=== PATIENT | male | born 1960 | race Caucasian/White ===

== ENCOUNTER 2018-01-24 10:19 | Inpatient (IN) ==
[2018-01-24 13:27] VITALS: BMI 24.0
--- OUTSIDE RECORDS SUMMARY | 2018-01-24 13:40 | External Medical Summary | Encounter Summary ---
:1960 Author Organization [facility] Address [address] [facility] [address] [facility] [address] [place] [address] Phone Care Team Providers Name Role Phone Seferino Portillo MD Unavailable Pippa Neal Unavailable Unavailable Seferino Portillo MD Unavailable Tia Cunha MD Unavailable Pratibha Blandon LPN Unavailable Unavailable Carrie Ferrer RN Unavailable Unavailable Didi Duarte RN Registered Nurse Unavailable Tiffani Gil RN Unavailable Unavailable Vladimir Munson MD Primary Care Provider Reason for Visit Reason Comments Itching Encounter Details Date Type Department Care Team Description 01/21/2018 Telephone Center for Abram Sun RN Itching Transplantation-Liver Transplant Hep [address] [facility] [place] [address] Social History Tobacco Use Types Packs/Day Years Used Date Former Smoker Cigarettes 0.25 0.5 Quit: 11/15/1975 Smokeless Tobacco: Former User Chew Quit: 11/15/2010 Alcohol Use Drinks/Week oz/Week Comments Yes 4-5 Cans of beer 4.8 - 5.4 4 Standard drinks or equivalent Sex Assigned at Date Recorded Not on file as of this encounter Functional Status Functional Status Response Date of Assessment Does the patient have a hearing impairment: No 10/28/2017 Does the patient have a visual impairment: No 10/28/2017 Does the patient have impaired ambulation: No 10/28/2017 Does the patient have an activity of daily living (ADL) No 10/28/2017 impairment: Does the patient have an instrumental activity of daily No 10/28/2017 living (IADL) impairment: Cognitive Status Response Date of Assessment Does the patient have a cognitive impairment: No 10/28/2017 as of this encounter Miscellaneous Notes Telephone Encounter - Abram Sun RN - 01/21/2018 9:03 AM CSTReceived message that pt was experiencing pruritis. Discussed with Dr. Damico who recommended eucerin. Pt states that is what he has been using. Requested pts labs that were done 2 days ago. Will review with Dr. Damico to make plan.in this encounter Plan of Treatment Not on fileas of this encounter Visit Diagnoses Not on filein this encounter
--- OUTSIDE RECORDS SUMMARY | 2018-01-24 13:40 | External Medical Summary | Encounter Summary ---
:1960 Author Organization [facility] Address [address] [place] [address] Phone Care Team Providers Name Role Phone Seferino Portillo MD Unavailable Pippa Neal Unavailable Unavailable Seferino Portillo MD Unavailable Tia Cunha MD Unavailable Pratibha Blandon LPN Unavailable Unavailable Carrie Ferrer RN Unavailable Unavailable Didi Duarte RN Registered Nurse Unavailable Tiffani Gil RN Unavailable Unavailable Vladimir Munson MD Primary Care Provider Reason for Referral Test Status Reason Specialty Diagnoses / Referred By Referred To Procedures Contact Contact No Auth Needed Cardiology Diagnoses Shortness of breath Isamar Avila MD [facility] Echo/Pv Procedures 2-D + DOPPLER ECHOCARDIOGRAM CA ECHO TTHRC R-T 2D W/WOM-MODE COMPL SPEC&COLR D [address] [place] [address] [address] Phone: Reason for Visit Reason Comments Appointment Request Encounter Details Date Type Department Care Team Description 01/21/2018 Telephone [facility] Cardiology Carine Dial, RN Appointment Request [address] [facility] [address] [place] [address] Social History Tobacco Use Types Packs/Day Years [...] this encounter Miscellaneous Notes Telephone Encounter - Carine Dial RN - 01/21/2018 11:46 AM CSTCalled and spoke with patient today. He states he had recent testing done at [facility] with Dr. Munson. Will request records. CT images clouded to . Patient states he has an appointment with Dr. Portillo on 02/03, so he will already be at that dayto see a provider for OV. Echo scheduled for 02/03 at 1:00 pm.Telephone Encounter - Carine Dial RN - 01/21/2018 11:46 AM PROFESSOR OF LEGAL STUDIES----- Message from Isamar Avila MD sent at 01/20/2018 6: 51 PM PROFESSOR OF LEGAL STUDIES ----- Regarding: RE: ?New heart failure He does have systolic LV dysfunction with EF 35-40% but that echo was in 2016. He did call our office and it appears that he was not hospitalized for congestive heart failure. He may get some detailsand get back with you. Cris Could we get his records and in my absence see if 1 of our nurse practitioners could see him. That is also get an echocardiogram done when he comes in. ----- Message ----- From: Alina Torres MD Sent: 01/20/2018 4:05 PM To: Isamar Avila MD Subject: ?New heart failure Dr. Avila, My name is Alina Pathaklois and I am a vinegar maker at . Mr. Urias is been started on Humira for management of inflammatory bowel disease. However , today he mentioned that he was diagnosed with congestive heart failure. I am not aware of the severity of the disease and I need your guidance to make sure that there is no contraindication for Humira. We usually do not prescribe Humira for congestive heart failure stage III or IV. He had a recent CT scan at the local emergency room and was told that he has congestive heart failure. I appreciate your input regarding his condition to makea determination if Humira is going to be contraindicated in his case. Regards, Alina Kelly in this encounter Plan of Treatment Scheduled Tests Name Priority Associated Diagnoses Order Schedule 2-D + DOPPLER ECHOCARDIOGRAM Routine Shortness of breath Expected: 2017, Expires: 01/21/2019 as of this encounter Visit Diagnoses Diagnosis Shortness of breath - Primary
--- OUTSIDE RECORDS SUMMARY | 2018-01-24 13:40 | External Medical Summary | Encounter Summary ---
:1960 Author Organization [facility] Address [address] [place] [address] [place] [address] Phone Care Team Providers Name Role Phone Seferino Portillo MD Unavailable Pippa Neal Unavailable Unavailable Seferino Portillo MD Unavailable Tia Cunha MD Unavailable Pratibha Blandon LPN Unavailable Unavailable Carrie Ferrer RN Unavailable Unavailable Didi Duarte RN Registered Nurse Unavailable Tiffani Gil RN Unavailable Unavailable Vladimir Munson MD Primary Care Provider Encounter Details Date Type Department Care Team Description 01/21/2018 Ancillary Orders Rad Outpatient, Diagnosis unknown [address] Radiologist [place], [place] [id number] Social History Tobacco Use Types Packs/Day Years [...] impairment: No 10/28/2017 as of this encounter Plan of Treatment Not on fileas of this encounter Results CT CHEST EXTERNAL IMAGING (01/05/2018) Narrative This order has been auto finalized and does not contain a result. in this encounter Visit Diagnoses Diagnosis Diagnosis unknown Other unknown and unspecified cause of morbidity or mortality
--- OUTSIDE RECORDS SUMMARY | 2018-01-24 13:40 | External Medical Summary | Clinical Summary ---
:1960 Author Organization [facility] Address [address] [place] [address] Phone Care Team Providers Name Role Phone Seferino Portillo MD Unavailable Pippa Neal Unavailable Unavailable Seferino Portillo MD Unavailable Tia Cunha MD Unavailable Pratibha Blandon LPN Unavailable Unavailable Carrie Ferrer RN Unavailable Unavailable Didi Duarte RN Registered Nurse Unavailable Tiffani Gil RN Unavailable Unavailable Vladimir Munson MD Primary Care Provider Source Comments Some departments are not documenting in the electronic medical record. If you do not see the information that you expected, contact Release of Information in the Health Information Management department at [phone] for further assistance in locating additional records.[facility] Allergies Active Allergy Reactions Severity Noted Date Comments Chlorhexidine Gluconate ITCHING 06/20/2014 Garlic RASH, ITCHING Medium 12/27/2012 Peanut RASH, ITCHING Medium 12/27/2012 Sulfa (Sulfonamide Antibiotics) ITCHING Low 12/27/2012 Rifaximin ITCHING Low 02/05/2015 Current Medications Prescription Sig. Disp. Refills Start Date End Date Status potassium chloride Take 20 mEq by Active (KDUR) 10 mEq tablet mouth daily. pantoprazole DR Take 40 mg by Active (PROTONIX) 40 mg tablet mouth daily. loperamide (IMODIUM) 2 Take 4 mg by Active mg capsule mouth daily. folic acid (FOLVITE) 1 Take 1 mg by 04/22/2015 Active mg tablet mouth daily. CHOLECALCIFEROL Take 5,000 Units Active (VITAMIN D3) (VITAMIN by mouth daily. D3 PO) ferrous gluconate 324 Take 324 mg by Active mg (36 mg iron) tab mouth daily. aspirin EC 81 mg tablet Take 1 Tab by 90 Tab 3 08/25/2016 Active mouth daily. Take with food. isosorbide mononitrate Take 15 mg by Active SR (IMDUR) 30 mg tablet mouth daily as needed (chest pain or neck pain). losartan(+) (COZAAR) Take 1 Tab by 90 Tab 3 03/12/2017 Active 100 mg mouth daily. tabletIndications: Coronary artery disease involving [place] coronary artery of [place] heart with angina pectoris (HCC) escitalopram oxalate Take 20 mg by Active (LEXAPRO) 20 mg tablet mouth daily. HYDROcodone/acetaminoph Take 0.5-1 Tabs Active en (NORCO) 7.5/325 mg by mouth every 6 tablet hours as needed for Pain (back pain) clopiDOGrel (PLAVIX) 75 Take 1 Tab by 90 Tab 3 04/11/2017 Active mg tabletIndications: mouth daily. Coronary artery disease involving [place] coronary artery of [place] heart with unstable angina pectoris (HCC), Chronic liver disease, S/P CABG (coronary artery bypass graft), PAD (peripheral artery disease) ([facility]), Gastroesophageal reflux disease without esophagitis, Essential hypertension with goal blood pressure less than 130/85, Other hyperlipidemia, Accelerating angina (HCC), Coronary artery disease involving [place] coronary artery of [place] heart with angina pectoris (HCC) carvedilol (COREG) 6.25 Take 0.5 Tabs by 180 Tab 3 04/11/2017 Active mg tabletIndications: mouth twice Coronary artery disease daily with involving [place] meals. Take with coronary artery of food. [place] heart with angina pectoris (HCC) chlorthalidone Take 25 mg by Active (HYGROTON) 25 mg tablet mouth daily. evolocumab 420 mg/3.5 Inject 420 mg 2 mL 11 08/13/2017 Active mL Injt under the skin every 14 days. ergocalciferol (VITAMIN Take 1 capsule Active D-2) 50,000 unit by mouth every 7 capsule days. evolocumab (REPATHA Inject 420mg 3.5 mL 11 10/21/2017 Active PUSHTRONEX) INFUSOR under the skin CARTRIDGE every 30 days. ALPRAZolam (XANAX) 0.25 Take 1 tablet by 30 tablet 0 10/28/2017 Active mg tablet mouth as Needed for Anxiety (TAKE ONE TABLET PRIOR TO 30 MINUTES PRIOR TO APHERESIS TREATMENT.). budesonide (UCERIS) 9 Take 1 tablet by 30 tablet 2 11/11/2017 Active mg ER mouth daily. tabletIndications: Vitamin D deficiency, Ulcerative colitis with complication, unspecified location (HCC) ergocalciferol (VITAMIN Take 1 capsule 4 capsule 1 11/19/2017 Active D-2) 50,000 unit by mouth every 7 capsule days. Take an additional 5000 IU over the counter in addition. Iron Fum & P-FA-Vit Take 1 capsule 30 capsule 2 11/19/2017 Active B & C No.9 125 mg by mouth daily. iron- 1 mg cap adalimumab(+) (HUMIRA Inject 0.8 mL 2 each 5 12/09/2017 Active PEN) 40 mg/0.8 mL under the skin injection every 14 days. penIndications: ULCERATIVE COLITIS alendronate (FOSAMAX) Take 1 tablet by 12 tablet 3 12/13/2017 Active 70 mg tablet mouth every 7 days. Take at least 30 minutes before breakfast with plain water. Do not lie down for 30 minutes. Hospital, Clinic, or Ordered Dose Route Frequency Start Date End Date Status Other Facility Administered Medication diphenhydrAMINE 25 mg IV ONCE 01/20/2018 01/20/2018 Ended (BENADRYL) injection 25 mg heparin (porcine) 2000 Units/hr APHERESIS TITRATE 01/20/2018 01/20/2018 Ended 30,000 units/30 mL infusion (SYR) (KANEKA APHERESIS) heparin (porcine) 3000 Units APHERESIS ONCE 01/20/2018 01/20/2018 Ended bolus for continuous inf (SYR) (KANEKA) 3,000 Units Active Problems Problem Noted Date Esophageal varices (HCC) 12/15/2017 Overview: Added automatically from request for surgery [id number] Ulcerative pancolitis (HCC) 12/09/2017 Overview: Added automatically from request for surgery [id number] Shortness of breath 09/29/2017 Chest pain 09/29/2017 Vitamin D deficiency 09/14/2017 Ischemic cardiomyopathy 05/13/2017 Unstable angina (HCC) 08/24/2016 CAD (coronary artery disease), [place] coronary artery 02/18/2015 Overview: 12/25/2014 - Stress Test: Abnormal MPI with evidence of infarct in the RCA territory. Preserved LV function and absence of stress induced myocardial cavity dilation. ([facility]). 03/11/17- Cardiac catheterization, left main had an 80% stenosis treated successfully with 1 drug-eluting Xience stent. There was also progressive disease in SVG to PDA, to be treated at a later date 04/09/17: Drug-eluting stent PCI of SVG to PDA by Dr. Avila Chronic liver disease 02/18/2015 S/P CABG (coronary artery bypass graft) 02/18/2015 Overview: 1. 08/2010 - CABG - KWON to LAD, SVG sequential to Diagonal 1 & 2; SVG to distal RCA. 2. 12/2013 - PCI - SVG of proximal RCA. 3. 10/2014 - PCI - occluded SVG to RCA with diffuse disease; LM ostial stenosis treated with Multi-Link Ultra stent x1. Thallium with ischemia in RCA segment. Following intervention continued to have angina. 4. 10/2014 - Redo sternotomy with CABG x1 - SVG to RCA PAD (peripheral artery disease) ([facility]) 02/18/2015 Overview: 1. 11/20/16 - CTA right LE - Dr. Jerson Cardoso - Large bilateral scortal hydroceles. Scattered plaque in right SFA and Popliteal arteries. Post contrast images show significant noncalcified plaque in right SOHA and EIA with mild stenosis. Plaque along SFA which mostly noncalcified causing areas of mild stenosis up to approx. 50%; pronounced area of narrowing is 8 cm proximal to knee joint calculating at 60% stenosis; additional proximal stenosis of 50-60%. Popliteal artery patent. Tibioperoneal trunk patent. Three-vessel runoff through the ankle. GERD (gastroesophageal reflux disease) 02/18/2015 PSC (primary sclerosing cholangitis) 02/18/2015 Hypothyroidism 02/18/2015 Depression 02/18/2015 Essential hypertension 02/18/2015 Hx MRSA infection 02/18/2015 Ulcerative colitis with complication ([facility]) 02/18/2015 History of pulmonary embolism 02/18/2015 Overview: 09/2010 HLD (hyperlipidemia) 02/18/2015 Encounters Date Type Specialty Care Team Description Ancillary Orders Radiology Outpatient, Diagnosis unknown 8 Radiologist Telephone Cardiology Yojana, Appointment Request 8 AMISHA Hawk Telephone Transplant Surgery Abram Sun Itching 8 RN Office Visit Gastroenterology [facility] Ulcerative pancolitis without complication (HCC) (Primary Dx); 8 Alina boston, Other iron deficiency anemia; Vitamin D deficiency; Colon cancer screening; Coronary artery disease involving [place] coronary artery of [place] heart without angina pectoris; Systolic congestive heart failure, unspecified chronicity (HCC) Nurse Only Clinical Familial 8 Pharmacology hypercholesterolemia Telephone Cardiology Yojana, Test/procedure (OS[facility] CT 8 AMISHA Hawk chest) Pharmacy Visit 8 Hospital Radiology 8 Encounter Documentation Scrivo Rajni 8 Pharmacy Visit 8 Pharmacy Visit 8 Documentation Vivi Samson Pharmacy Visit 8 Office Visit Cardiology Isamar Avila, Cardiac Eval (s/p cath 8 MD 10/29, claudication, edema) [facility] Cardiology Isamar Avila, 8 Encounter Telephone Gastroenterology Fadumo Procedure 8 Alina boston MD Prep for Case Gastroenterology Fadumo 8 Alina boston MD Documentation Vivi Samson Pharmacy Visit 8 Orders Only Gastroenterology [facility] 8 Alina boston MD Pharmacy Visit 8 Hospital Lab [facility] Ulcerative (chronic) 8 Encounter Alina boston, pancolitis without MD complications (HCC) Office Visit Gastroenterology [facility] Ulcerative pancolitis (HCC) (Primary Dx); 8 Alina boston, Ulcerative pancolitis without complication (HCC); Functional diarrhea; Vitamin D deficiency; Iron deficiency Hospital Radiology [facility]ourtney-[facility]lin[facility] 8 Encounter Alina boston MD Nurse Only Clinical Familial 8 Pharmacology hypercholesterolemia Pharmacy Visit 8 Pharmacy Visit 8 Prep for Case Gastroenterology Kourtney-Dylon 8 Alina boston MD Nurse Only Clinical Pure hypercholesterolemia; 8 Pharmacology Elevated Lp(a) Orders Only Clinical Lindsey, 8 Pharmacology Seferino Ordonez MD Pharmacy Visit 8 Orders Only Gastroenterology [facility] Vitamin D deficiency 8 Alina boston, (Primary Dx) Documentation Marcela, 8 Nikki Documentation Rajni Mandujano Telephone Gastroenterology [facility] Prior Authorization 8 Alina boston, (Uceris) Pharmacy Visit 7 [facility] Iron deficiency 7 Encounter Alina boston MD Office Visit Gastroenterology 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; History of fracture Nurse Only Clinical Elevated Lp(a); 7 Pharmacology Familial hypercholesterolemia Pharmacy Visit 7 Documentation Potter, 7 Nikki Pharmacy Visit 7 [facility] Cardiology Isamar Avila, CAD (coronary artery 7 - Encounter MD disease), [place] coronary artery 7 Pharmacy Visit 7 Telephone Transplant Surgery Abram Sun, Lab Results W/ medication 7 RN Changes Procedure Pass Cardiology 7 Surgery Cardiology Isamar Avila, Abdominal Aortogram with 7 Bilateral Runoffs [facility] Lab Mookie, Cholangitis 7 Encounter MD Lindsay Office Visit Hepatology Mookie, Primary sclerosing cholangitis ( Primary Dx); 7 MD Lindsay Ulcerative pancolitis without complication (HCC); Encounter for observation for other suspected diseases and conditions ruled out ; High serum lipoprotein X; Peripheral vascular disease (HCC); Alcohol abuse; Coronary artery disease involving coronary bypass graft of [place] heart without angina pectoris [facility] Cardiology Isamar Avila, 7 Encounter MD Nurse Only Clinical Familial hypercholesterolemia; 7 Pharmacology Elevated Lp(a) Orders Only Clinical Lindsey, Alonzo Pharmacology Seferino Ordonez MD from Last 3 Months Immunizations Name Dates Previously Given Next Due Flu Vaccine Trivalent 18-64 Yo Intradermal 08/17/2014 Flu Vaccine Trivalent=>3 Yo (Preservative Free) 08/17/2014, 09/05/2013 Family History Medical History Relation Name Comments Diabetes Brother Diabetes Father Heart Attack Father Heart Disease Father Stroke Father Hypertension Mother Hypertension Sister Relation Name Status Comments Brother Father Mother Alive Sister Social History Tobacco Use Types Packs/Day Years Used Date Former Smoker Cigarettes 0.25 0.5 Quit: 11/15/1975 Smokeless Tobacco: Former User Chew Quit: 11/15/2010 Tobacco Cessation: Counseling Given: No Alcohol Use Drinks/Week oz/Week Comments Yes 4-5 Cans of beer 4.8 - 5.4 4 Standard drinks or equivalent Sex Assigned at Date Recorded Not on file Last Filed Vital Signs Vital Sign Reading Time Taken Blood Pressure 135/62 01/20/2018 3:32 PM [employer] Pulse 79 01/20/2018 3:32 PM [employer] Temperature 36.3 C (97.3 F) 01/20/2018 10:44 AM [employer] Respiratory Rate 16 01/20/2018 3:32 PM [employer] Oxygen Saturation 100% 01/20/2018 3:32 PM [employer]TER Inhaled Oxygen Concentration - - Weight 73.5 kg (162 lb) 01/20/2018 3:32 PM [employer] Height 179.8 cm (5' 10.8") 01/20/2018 3:32 PM [employer]TER Body Mass Index 22.72 01/20/2018 3:32 PM [employer]TER Plan of Treatment Health Maintenance Due Date Last Done Comments PHYSICAL (COMPREHENSIVE) EXAM 1967 PERTUSSIS VACCINE 1971 HIV SCREENING 1975 TETANUS VACCINE 1977 DILATED EYE EXAM 1978 FOOT EXAM 1978 PNEUMONIA VACCINE (DM) 1978 COLORECTAL CANCER SCREENING 2010 HBA1C 02/22/2017 08/24/2016, 03/20/2016 INFLUENZA VACCINE 08/15/2018 08/17/2014, 08/17/2014, 09/05/2013 HEPATITIS C SCREENING Completed 10/28/2017, 10/28/2017 Procedures Procedure Name Priority Date/Time Associated Diagnosis Comments PROCEDURE 11/07/2017 2:28 PM Results for this RECORD-SCAN [employer] procedure are in the results section. TELEMETRY 11/07/2017 2:19 PM Results for this STRIPS-SCAN [employer] procedure are in the results section. ECG-SCAN 10/30/2017 8:15 AM Results for this [employer]TER procedure are in the results section. from Last [address] CHEST EXTERNAL IMAGING (01/05/2018) Narrative This order has been auto finalized and does not contain a result. PV BANDAR ARTERIAL COMPLETE (AO + LOWER EXTRM) (12/15/2017 1:05 PM) Component Value Ref Range LEFT ARM BP 113 mmHg RIGHT ARM BP 114 mmHg LEFT POSTERIOR TIBIAL 84 mmHg RIGHT POSTERIOR TIBIAL 80 mmHg LEFT ANTERIOR TIBIAL 94 mmHg RIGHT ANTERIOR TIBIAL 80 mmHg LEFT TOE PRESSURE 72 mmHg RIGHT TOE PRESSURE 70 mmHg Referring Provider Vladimir Munson RIGHT BANDAR 0.70 LEFT BANDAR 0.82 RIGHT TBI 0.61 LEFT TBI 0.63 ABDOMINAL PROX AORTA SONYA 0.79 m/s ABDOMINAL PROX AORTA AP 2.67 cm ABDOMINAL PROX AORTA TRANS 2.62 cm ABDOMINAL MID AORTA SONYA 0.84 m/s ABDOMINAL MID AORTA AP 1.92 cm ABDOMINAL MID AORTA TRANS 1.92 cm ABDOMINAL DIST AORTA SONYA 1.74 m/s ABDOMINAL DIST AORTA AP 1.81 cm ABDOMINAL DIST AORTA TRANS 1.81 cm ABDOMINAL RT COM ILIAC SONYA 1.48 m/s ABDOMINAL RT COM ILIAC AP 0.886 cm ABDOMINAL RT COM ILIAC TRANS 0.885 cm ABDOMINAL LT COM ILIAC SONYA 1.95 m/s ABDOMINAL LT COM ILIAC AP 0.970 cm ABDOMINAL LT COM ILIAC TRANS 0.952 cm ABDOMINAL RT INT ILIAC SONYA 4.59 m/s ABDOMINAL RT EXT ILIAC SONYA 5.06 m/s ABDOMINAL LT INT ILIAC SONYA 3.81 m/s ABDOMINAL LT EXT ILIAC SONYA 3.2 m/s Right internal iliac ratio 3.1 Right external iliac ratio 3.4 Left internal iliac ratio 2.0 Left external iliac ratio 1.6 RIGHT POULTRY INSPECTOR PROX SYS MAX 2.01 m/s RIGHT POULTRY INSPECTOR DIST SYS MAX 1.9 m/s RIGHT PROFUNDA SYS MAX 1.72 m/s RIGHT SUPER FEMORAL PROX SYS MAX 2.04 m/s RIGHT SUPER FEMORAL MID SYS MAX 2.07 m/s RIGHT SUPER FEMORAL DIST SYS MAX 1.04 m/s RIGHT POPLITEAL PROX SYS MAX 0.79 m/s RIGHT POPLITEAL DIST SYS MAX 0.66 m/s RIGHT ANT TIBEAL SYS MAX 2.01 m/s RIGHT TIB/PER TRUNK SYS MAX 0.88 m/s RIGHT POST TIBIAL SYS MAX 0.4 m/s RIGHT PERONEAL SYS MAX 0.28 m/s LEFT POULTRY INSPECTOR PROX SYS MAX 2.22 m/s LEFT POULTRY INSPECTOR DIST SYS MAX 2.96 m/s LEFT PROFUNDA SYS MAX 3.2 m/s LEFT SUPER FEMORAL PROX SYS MAX 3.57 m/s LEFT SUPER FEMORAL MID SYS MAX 1.42 m/s LEFT SUPER FEMORAL DIST SYS MAX 2.08 m/s LEFT POPLITEAL PROX SYS MAX 1.95 m/s LEFT POPLITEAL DIST SYS MAX 1.23 m/s LEFT ANT TIBEAL SYS MAX 1.66 m/s LEFT TIB/PER TRUNK SYS MAX 0.94 m/s LEFT POST TIBIAL SYS MAX 0.69 m/s LEFT PERONEAL SYS MAX 0.3 m/s RIGHT ANT TIBEAL RATIO 3.0 Specimen Performing Laboratory OTHER OUTSIDE LAB Narrative Ankle-Brachial Indices Moderately decreased ankle/brachial index on the right Mildly decreased ankle/brachial index on the left Resting lower extremity waveforms were biphasic Toe brachial indices were marginally abnormal bilaterally Abdominal Aorta and Iliac Vessels No evidence of abdominal aortic aneurysm or hemodynamically significant stenosis (>50%) in the visualized segments of the aorta The proximal abdominal aorta is mildly ectatic The right internal and external iliac arteries have severe (75-99%) stenosis by velocity criteria and moderate (50-75%) stenosis by ratio criteria The left internal and external iliac arteries demonstrate elevated velocities and monophasic flow consistent with moderate (50-75%) stenosis Right Lower Extremity Arterial Duplex Patent stent is present in the right distal superficial femoral artery No hemodynamically significant (>50%) stenosis seen in other visualized segments of the right lower extremity arteries Right anterior tibial artery has 50-75% stenosis by Doppler velocity criteria Left Lower Extremity Arterial Duplex The common femoral artery demonstrates moderate (50-75%) stenosis with biphasic flow The left profunda femoris artery demonstrates moderate (50-75%) stenosis with biphasic flow The left proximal superficial femoral artery demonstrates moderate (50-75%) stenosis with biphasic flow There is a patent stent in the middle-distal superficial femoral artery without hemodynamically significant stenosis Compared to prior study completed on 09/28/17 there has been interval worsening of stenosis in the right and left internal/external iliac arteries. The peak systolic velocities in the common femoral, profunda, and proximal-mid femoral arteries have increased consistent with evolving stenosis. The distal femoral artery has significant improvement in peak systolic velocities since placement of stent. The right lower arteries were not imaged on this previous study. HEPATITIS B CORE AB TOT (IGG+IGM) (12/09/2017 3:40 PM) Component Value Ref Range Anti HBc Total NEG Specimen Performing Laboratory [facility] [address] [place] [address] HEPATITIS B SURFACE AG (12/09/2017 3:40 PM) Component Value Ref Range HBsAg NEG Specimen Performing Laboratory [facility] [address] [place] [address] HEPATITIS B SURFACE AB (12/09/2017 3:40 PM)Only the most recent of2 resultswithin the time period is included. Component Value Ref Range Anti HBs <2.5 mIU/ml Comment: Hepatitis B Surface Antibody Reference Ranges >12.0 Positive 8.0-12.0Equivocal <8.0Negative Specimen Performing Laboratory [facility] [address] [place] [address] BONE DENSITY SPINE/HIP (12/09/2017 12:32 PM) Specimen Performing Laboratory [facility] RAD RESULTS Impressions Findings consistent with osteoporosis. Follow-up recommendations as above. Finalized by Sung Tamayo D.O. on 12/09/2017 12:47 PM. Dictated by Sung Tamayo D.O. on 12/09/2017 12:46 PM. Narrative DEXA BONE MINERAL DENSITY SCAN: CLINICAL HISTORY: Vitamin D deficiency; ulcerative colitis with complication, unspecified location; long-term systemic steroid use; history of fracture Comparison:No previous FINDINGS: Lumbar spine, the L1-4 vertebrae 0.924 g/cm2 with a T-score of -2.5 Left femoral neck is 0.707 g/cm2 with a T-score of -2.8 Left femur is 0.696 g/cm2 with a T-score of -2.8 Right femoral neck is 0.727 g/cm2 with a T-score of -2.6 Right femur is 0.738 g/cm2 with a T-score of -2.5 N.B. Changes in density of <=0.05 g/cm2 are not statistically significant. Definitions: T-score> -0.99=Normal T-score-1.00 to -1.49=mild osteopenia T-score-1.50 to -1.99=moderate osteopenia T-score-2.00 to -2.49=severe osteopenia T-score< -2.50=osteoporosis RECOMMENDATIONS: Normal: Low risk for fracture - f/u in 2 years Mild/Mod osteopenia: Moderate risk for fracture - f/u in 1 year Severe osteopenia: Moderate/high risk for fracture - f/u in 1 year Osteoporosis: High risk for fracture - f/u in 1 year Procedure Note Interface, Radiant Results - 12/09/2017 12:51 PM [employer]ACH[employer] KNIFE SETTER DEXA BONE MINERAL DENSITY SCAN: CLINICAL HISTORY: Vitamin D deficiency; ulcerative colitis with complication, unspecified location; long-term systemic steroid use; history of fracture Comparison: No previous FINDINGS: Lumbar spine, the L1-4 vertebrae 0.924 g/cm2 with a T-score of -2.5 Left femoral neck is 0.707 g/cm2 with a T-score of -2.8 Left femur is 0.696 g/cm2 with a T-score of -2.8 Right femoral neck is 0.727 g/cm2 with a T-score of -2.6 Right femur is 0.738 g/cm2 with a T-score of -2.5 N.B. Changes in density of <=0.05 g/cm2 are not statistically significant. Definitions: T-score > -0.99=Normal T-score -1.00 to -1.49=mild osteopenia T-score -1.50 to -1.99=moderate osteopenia T-score -2.00 to -2.49=severe osteopenia T-score < -2.50=osteoporosis RECOMMENDATIONS: Normal: Low risk for fracture - f/u in 2 years Mild/Mod osteopenia: Moderate risk for fracture - f/u in 1 year Severe osteopenia: Moderate/high risk for fracture - f/u in 1 year Osteoporosis: High risk for fracture - f/u in 1 year IMPRESSION Findings consistent with osteoporosis. Follow-up recommendations as above. Finalized by Sung Tamayo D.O. on 12/09/2017 12:47 PM. Dictated by Sung Tamayo D.O. on 12/09/2017 12:46 PM. IRON + BINDING CAPACITY + %SAT (11/11/2017 2:32 PM) Component Value Ref Range Iron 32 (L) 50 - 185 MCG/DL Iron Binding-TIBC 410 (H) 270 - 380 MCG/DL % Saturation 8 (L) 28 - 42 % Specimen Performing Laboratory [facility] [address] [place] [id number] 25-OH VITAMIN D (D2 + D3) (11/11/2017 2:32 PM) Component Value Ref Range Vitamin D(25-OH)Total 20.7 (L) 30 - 80 NG/ML Specimen Performing Laboratory [facility] [address] [place] [id number] FOLATE, SERUM (11/11/2017 2:32 PM) Component Value Ref Range Serum Folate 11.3Comment: NOTE NEW REFERENCE RANGES >3.9 NG/ML Specimen Performing Laboratory [facility] [address] [place] [id number] VITAMIN B12 (11/11/2017 2:32 PM) Component Value Ref Range Vitamin B12 >1500 (H) 180 - 914 PG/ML Specimen Performing Laboratory [facility] [address] [place] [address] PROCEDURE RECORD-SCAN (11/07/2017 2:28 PM) Narrative Ordered by an unspecified provider. TELEMETRY STRIPS-SCAN (11/07/2017 2:19 PM) Narrative Ordered by an unspecified provider. CARDIAC CATH REPORT (10/31/2017 12:29 PM) Specimen Performing Laboratory OTHER OUTSIDE LAB Procedure Note Isamar Avila MD - 10/29/2017 4:19 PM [employer] KNIFE SETTER [facility] CARDIAC CATHETERIZATION REPORT Page 3 VINCE Ordonez : 1960 [facility]#: [id number] TAMMY MR #/Billing ID #: [id number] / [id number] DATE: 10/29/2017 RUG SHAMPOOER: Isamar Avila MD DICTATING PROVIDER: Ezekiel Burnham MD REFERRING PHYSICIAN: Vladimir Munson MD INTERVENTIONAL DAYCARE ASSISTANT: Ezekiel Burnham MD. PROCEDURES PERFORMED: 1. Right external iliac angiogram with right lower extremity runoff. 2. Right common iliac angiogram, balloon angioplasty. 3. Abdominal aortogram with bilateral iliofemoral runoff. 4. Right mid SFA balloon angioplasty with stenting with self-expanding stent and post-dilatation. INDICATION FOR PROCEDURE: Vince Urias is a pleasant 57-year-old gentleman with a history of extensive peripheral vascular disease, status post recent endovascular intervention of his left SFA. During that procedure, we noted critical lesions in his right SFA. He is presently having lifestyle-limiting claudication symptoms and, hence, we would like to perform endovascular intervention on the right SFA. He also has a previous history of coronary artery bypass grafting and uncontrolled hyperlipidemia, which is nonresponsive to PCSK9 inhibitors. CONSENT: Risks, benefits, and alternatives of procedure explained to the patient by both Dr. Avila and myself. Risks of access site complications, bleeding, arterial dissection, limb ischemia, need for vascular surgery were explained to the patient, who verbalized understanding of these conditions and consented to the procedure. Written informed consent has been placed in the chart as well. The patient was brought in the chemistry lab instructor in a fasting, nonsedated state. After giving the patient a total of 100 mcg of fentanyl and 4 mg of Versed, we achieved moderate conscious sedation, which was monitored and maintained throughout the procedure for a total of 120 minutes. Respiratory, hemodynamic, and neurological parameters were monitored throughout the procedure by the operators and by the chemistry lab instructor staff. The patient is prepped and draped in sterile fashion. We exposed bilateral groins and prepped with 1% chlorhexidine, instilled a total of 20 mL of 1% lidocaine for good local anesthesia. We then gained access into the left common femoral artery using a micropuncture needle and modified Seldinger technique. We introduced a 5-Greenlandic diagnostic arterial 10 cm [place] sheath with good blood flow return. We introduced a [place] Flush one 5-Greenlandic catheter over an 0.035, 180 cm Storq wire into the abdominal aorta and tried to cross over into the right common iliac artery and subsequently into the external iliac artery. The patient has previously placed stents in the right common iliac artery extending into the external iliac artery, right at the junction of these 2 stents where there is an overlap. He seems to have an acute angulation, which was preventing our wire from going in easily. After a significant amount of manipulation, we were able to cross this overlapping junction. Though we were able to take our Storq wire across, we were not able to track the UF-1 catheter across this particular lesion because we were suspicious of any particular lesion which was coming off that particular region. However, we obtained an abdominal aortogram, which demonstrated no significant lesion, but was just below the angle, which was making it difficult for us to track the UF catheter. We then subsequently switched for a higher size 6-Greenlandic 10 cm [place] sheath on the left groin over the 0.035 Storq wire. After this, we decided to take an 8.0 x 20 x 80 mm EverCross balloon across this particular lesion over the 0.035 Storq wire. However, we noted significant difficulty in getting across the junction between these 2 right external iliac and common iliac stents. We then removed the EverCross balloon and took the UF back again and performed an abdominal aortogram with bilateral iliofemoral runoff, which demonstrated a wide patency of both these stents in the right common and external iliac artery, indicating the absence of any stenosis. It was purely the angle which was causing the problem. We then removed the UF catheter and tried to directly insert a 5-Greenlandic 45 cm Destination sheath across this particular bend in the right common iliac artery, but we were unsuccessful in doing so. We then removed the 5-Greenlandic Destination sheath dilator and tried to pass it over the 0.035 Storq wire that would be unsuccessful as well. We then took a 5.0 x 40 x 80 mm [place] 35 balloon over the 0.035 Storq wire system and performed angioplasty across this particular bend at the region of the overlap between the stents 13 seconds at 14 atmospheres hoping that this would make way for us to pass the sheath. We then switched out over the 0.035 Storq wire for a 6-Greenlandic 45 cm Destination straight sheath, which would again not pass this particular lesion. We then introduced the same 6-Greenlandic dilator and tried to pass across this lesion, which was again unsuccessful. We tried to pass a smaller 7.0 x 30 x 80 mm EverCross balloon, which would again not cross this particular bend. We had significant difficulty getting across it. We then switched for a 5- Greenlandic 45 cm Shailesh flexor sheath and tried to get across this lesion and that would not work either. We were not able to track the sheath. We then removed the Shailesh dilator 5-Greenlandic and tried to pass across this lesion and that still would not work. Keeping the 0.[address], we introduced another 0.018 x 180 cm Steelcore wire across the 5- Greenlandic Shailesh sheath and got into the distal portion of the popliteal artery. Keeping access with the 0.018 Steelcore wire, we removed the Storq wire and subsequently switched to an 0.018 system. Over the Steelcore wire, we introduced a 0.018 x 90 cm Quick-Cross catheter and switched out for a longer Steelcore wire in the form of a 0.018 x 300 cm Steelcore. Over this long Steelcore wire and an 0.018 system, we introduced a 6.0 x 40 x 150 mm [place] balloon and performed balloon angioplasty of the right external iliac artery stent for 24 seconds at 12 atmospheres, followed by another 35 seconds at 12 atmospheres to dilate the segment. After this was done, we were able to pass the 5-Greenlandic Shailesh sheath across this particular bend and gained access into the right external iliac artery with the sheath. With the tip of the sheath in place at that particular region, we introduced a 4.0 x 80 x 150 mm [place] 18 balloon and accessed the right mid to distal SFA and performed balloon angioplasty for 2 different inflations, both of which were 8 atmospheres lasting 80 to 120 seconds each. We then noticed excellent reduction in stenosis and, given the fact that we were not able to introduce a 6-Greenlandic system, we decided to direct stent this lesion instead of a drug-coated balloon. We then introduced a 6.0 x 120 x 120 mm EverFlex self-expanding stent and deployed it in the mid to distal SFA overlapping both the tandem lesions of 80% to 90% each. We noticed that some of the segment of the stent were under-expanded. We post-dilated the stent using a 5.5 x 100 x 150 mm [place] 18 balloon for a total of 3 different inflations lasting 4 to 6 atmospheres lasting 30 to 40 seconds each with excellent stent expansion and apposition. There was no evidence of edge dissection. Good flow was noted across the stent into the popliteal artery. We also performed a runoff to the right lower extremity, which demonstrated excellent 2 vessel runoff, which was consistent with preprocedural levels with the AT and the PT supplying a good runoff to the right foot. On our way back, we kept the 0.[address] and tracked the same 5.5 x 100 x 150 mm [place] 18 balloon and performed another balloon angioplasty in the junction between these 2 stents and the common iliac arteries on the right side. The 5.5 balloon was inflated for 8 atmospheres for a total of 50 seconds, following which we removed the Storq wire and the balloon together and switched out for a 5-Greenlandic 11 cm Destination sheath. Manual compression method will be used to secure hemostasis. Details of abdominal aortogram with bilateral iliofemoral runoff: Visualized portions of the abdominal aorta had minor plaquing, but no significant obstructive disease. Right common and external iliac artery have previously placed stents in overlapping fashion. The stents are widely patent without any significant stenosis. However, the overlapping segment seems to have a difficult angle to traverse. The right internal iliac artery had 70% stenosis. The right common femoral artery had 30% stenosis. Right profunda had minor plaquing. Right proximal SFA had 30% stenosis. Mid to distal SFA had 2 tandem lesions of 80% each. Right popliteal artery had 60% stenosis. The AT and PT supply a 2-vessel runoff to the right foot and have minor plaquing. The peroneal artery is a moderate-sized vessel, which was a diminutive artery that has minor plaquing. Left common iliac artery has minor plaquing. Left internal iliac artery has 80 % ostial stenosis. Left external iliac artery has 40% stenosis. The left common femoral artery has 30% stenosis. The patient tolerated the procedure well without any evidence of hemodynamic complications, and excellent 2-vessel runoff was noted to the right foot at the end of the procedure. Dr. Avila, my attending, was scrubbed and performed trammell portions of procedure and supervised the rest of it as well. TOTAL CONTRAST USED: 120 mL. TOTAL AIR KERMA: 610 mGy. LESION CHARACTERISTICS: TASC C lesion right mid SFA lesion. FINAL IMPRESSION: 1. Successful balloon angioplasty of the right external iliac artery stent, which did not have any significant stenosis, but it was extremely difficult to traverse from the left side owing to a very difficult angle at the stent overlap segment between the external and common iliac arteries. 2. Right mid SFA balloon angioplasty followed by deployment of a 6.0 x 120 x 120 mm EverFlex self-expanding stent post-dilated with a 5.5 x 100 x 150 mm [place] 18 balloon with 6 atmospheres inflations with excellent angiographic results. 3. Aspirin and Plavix will be used for dual antiplatelet therapy. Isamar Avila MD PCG/MedQ /[id number] p cc: - Vladimir Munson MD ECG-SCAN (10/30/2017 8:15 AM) Narrative Ordered by an unspecified provider. CBC (10/30/2017 4:07 AM)Only the most recent of2 resultswithin the time period is included. Component Value Ref Range White Blood Cells 11.4 (H) 4.5 - 11.0 K/UL RBC 3.47 (L) 4.4 - 5.5 M/UL Hemoglobin 9.6 (L) 13.5 - 16.5 GM/DL Hematocrit 28.8 (L) 40 - 50 % MCV 83.0 80 - 100 FL MCH 27.7 26 - 34 PG MCHC 33.4 32.0 - 36.0 G/DL RDW 19.5 (H) 11 - 15 % Platelet Count 186 150 - 400 K/UL MPV 11.4 (H) 7 - 11 FL Specimen Performing Laboratory Blood MAIN LAB [address] [place] [address] BASIC METABOLIC PANEL (10/30/2017 4:07 AM) Component Value Ref Range Sodium 132 (L) 137 - 147 MMOL/L Potassium 3.7 3.5 - 5.1 MMOL/L Chloride 100 98 - 110 MMOL/L CO2 24 21 - 30 MMOL/L Anion Gap 8 3 - 12 Glucose 102 (H) 70 - 100 MG/DL Blood Urea Nitrogen 26 (H) 7 - 25 MG/DL Creatinine 1.23 0.4 - 1.24 MG/DL Calcium 8.7 8.5 - 10.6 MG/DL eGFR Non >60 >60 mL/min Comment: The eGFR is not validated for use in drug dosing adjustments.Continue to use estimated creatinine clearance per dosing reference text.Please contact the Clinical Pharmacist for questions. eGFR >60 >60 mL/min Comment: The eGFR is not validated for use in drug dosing adjustments.Continue to use estimated creatinine clearance per dosing reference text.Please contact the Clinical Pharmacist for questions. Specimen Performing Laboratory Blood [facility] [address] [place] [address]446 POC ACTIVATED CLOTTING TIME (10/29/2017 1:58 PM)Only the most recent of5 resultswithin the time period is included. Component Value Ref Range Activated Clotting Time 177 s Specimen Performing Laboratory [facility] [address] [place] [address] 27171 MRSA SCREEN (10/29/2017 8:50 AM) Component Value Ref Range Battery Name MRSA SCREEN Specimen Description NASAL Special Requests NONE Culture NO MRSA ISOLATED Report Status FINAL 10/30/2017 Specimen Performing Laboratory Nasal [facility] [address] [place] [address] 58390 POC PT/INR (10/29/2017 7:45 AM) Component Value Ref Range INR POC 1.0 0.8 - 1.2 Specimen Performing Laboratory [facility] [address] [place] [address] [id number] POC GLUCOSE (10/29/2017 7:45 AM) Component Value Ref Range Glucose, POC 109 (H) 70 - 100 MG/DL Specimen Performing Laboratory [facility] [address] [place] [address] 86514 ETHYL GLUCURONIDE SCREEN WITH REFLEX, URINE (10/28/2017 2:50 PM) Component Value Ref Range Ethyl Glucuronide SCRN, U Negative Reference range: Cutoff: 500 Unit: ng/mL ADDITIONAL INFORMATION This test was developed and its performance characteristics determined by [facility] in a manner consistent with CLIA requirements. This test has not been cleared or approved by the U.S. Food and Drug Administration. This test was developed and its performance characteristics determined by [facility] in a manner consistent with CLIA requirements. This test has not been cleared or approved by the U.S. Food and Drug Administration. [facility] [place] [address] Specimen Performing Laboratory REFERENCE LAB HEPATITIS A IGG (10/28/2017 2:50 PM) Component Value Ref Range Hepatitis A IGG NEG Note: Test type and methodology has changed.The [facility] lab has discontinued the test for Total Hep A Immunoglobulin.This test has been replaced with more specific testing.The tests for Hep A IgG and Hep A IgM are both now available and can be ordered. Specimen Performing Laboratory Blood [facility]IN [facility] [address] [place] [address]5910 HEPATITIS C AB (10/28/2017 2:50 PM) Component Value Ref Range Anti HCV NEG Specimen Performing Laboratory Blood [facility] [address] [place] [address] 10734 HEPATITIS C VIRAL LOAD PCR QUANT (10/28/2017 2:50 PM) Component Value Ref Range Hepatitis C PCR Quantitative HCV RNA Not Detected, <12 IU/mL <12 IU/ML Comment: The test method detects HCV viral load using the Vaz RealTime assay. Please correlate results with the clinical status of the patient. Log 10 HCV <1.08 <1.08 IU/mL Specimen Performing Laboratory Blood [facility] [address] [place] [address] 17639 ALCOHOL LEVEL (10/28/2017 2:50 PM) Component Value Ref Range Alcohol <10 MG/DL Specimen Performing Laboratory Blood [facility] [address] [place] [address] 04043 LIPID PROFILE (10/28/2017 11:55 AM) Component Value Ref Range Cholesterol 371 (H) <200 MG/DL Triglycerides 187 (H) <150 MG/DL HDL 9 (L) >40 MG/DL LDL 399 (H) <100 MG/DL VLDL 37 MG/DL Non HDL Cholesterol 362 MG/DL Comment: Calculated non-HDL Cholesterol (non-HDL-C) indirectly measures LDL-C, Lp(a), IDL-C, and VLDL-C.It is a surrogate marker for Apoprotein B.Goal should be less than 130 mg/dL. Specimen Performing Laboratory Blood [facility] [address] [place] [address] COMPREHENSIVE METABOLIC PANEL (10/28/2017 11:55 AM) Component Value Ref Range Sodium 137 137 - 147 MMOL/L Potassium 3.5 3.5 - 5.1 MMOL/L Chloride 104 98 - 110 MMOL/L Glucose 153 (H) 70 - 100 MG/DL Blood Urea Nitrogen 19 7 - 25 MG/DL Creatinine 1.21 0.4 - 1.24 MG/DL Calcium 8.4 (L) 8.5 - 10.6 MG/DL Total Protein 5.8 (L) 6.0 - 8.0 G/DL Total Bilirubin 8.2 (H) 0.3 - 1.2 MG/DL Albumin 2.8 (L) 3.5 - 5.0 G/DL Alk Phosphatase 713 (H) 25 - 110 U/L AST (SGOT) 107 (H) 7 - 40 U/L CO2 24 21 - 30 MMOL/L ALT (SGPT) 82 (H) 7 - 56 U/L Anion Gap 9 3 - 12 eGFR Non >60 >60 mL/min Comment: The eGFR is not validated for use in drug dosing adjustments.Continue to use estimated creatinine clearance per dosing reference text.Please contact the Clinical Pharmacist for questions. eGFR >60 >60 mL/min Comment: The eGFR is not validated for use in drug dosing adjustments.Continue to use estimated creatinine clearance per dosing reference text.Please contact the Clinical Pharmacist for questions. Specimen Performing Laboratory Blood [facility] [address] [place] [address] HDLAB RESULTS (10/28/2017)Only the most recent of2 resultswithin the time period is included. Component Value Ref Range Cholesterol 337 LDL 297 HDL 8 Triglycerides 158 Non HDL Cholesterol Apolipoprotein B 100 78 LDL-P 1,379 Small Density LDL 85 SDLDL % 29 Apoliprotein A1 42 HDL-P <18.1 HDL2 -29 APO B/A1 RATIO 1.86 LP(A) Mass 11 LP(A) Cholesterol Myeloperoxidase AB 769 LP PLA2 (PLAC-R) CRP, High Sensitivity 14.5 Fibrinogen 652 B Type Natriuretic Peptide 1,843 AspirinWorks (Urine) Apolipoprotein E & Alleles Apolipoprotein E Specimen PSP6P30*2*3 MUN1E52*17* Factor 5 Leiden Prothrombin Gene Analysis Insulin FREE FATTY ACID Glucose 146 Hemoglobin A1C ESTIMATED AVERAGE GLUCOSE Vitamin D(25-OH)Total 41 Uric Acid 5.1 TSH Homocysteine 10 Cystatin C, S 1.39 eGFR Non 51 eGFR 54 Creatinine 1.2 HS-OMEGA-3 INDEX 3.47 OMEGA-3 TOTAL ALPHA-LINOLENIC (ALA) DOCOSAPENTAENOIC (DPA) EICOSAPENTAENOIC (EPA) DOCOSAHEXAENOIC (DHA) OMEGA-6 TOTAL ARACHIDONIC (AA) LINOLEIC (LA) CIS-MONOUNSATURATED TOTAL SATURATED TOTAL TRANS TOTAL Sodium 142 Potassium 3.6 Chloride 104 CO2 24 Calcium 8.1 Magnesium 1.90 ALT (SGPT) 80 AST (SGOT) 101 Acid Phos,Prostatic Blood Urea Nitrogen 18 Total Bilirubin 7.6 Prostatic Specific Antigen Albumin 2.5 Total Protein 4.7 Creatine Kinase 16 TSH T4 (Total) T4-Free T3 (Total) Testosterone, Serum Specimen Performing Laboratory [facility] [address] [place] [address], [address] [place] [address] from Last 3 Months
--- OUTSIDE RECORDS SUMMARY | 2018-01-24 13:40 | External Medical Summary | Continuity of Care Document ---
:1960 Author Organization [facility] Care Team Providers Name Role Phone [employer] Unavailable Unavailable Encounters Location Location Encounter Encounter Reason Attending ADM DC Status Source Details Type Number For Provider Date Date Visit EXT [id number] ESSENCE 03/12 03/12 Active The RECOVERY STROUT /2016 [facility] EMERGENCY [id number] 07/29 07/30 Active The [facility] EXT [id number] KAMAL 08/06 08/07 Active The RECOVERY SANCHEZ /2016 [facility] OUTPATIENT [id number] KAMAL 09/28 09/28 Active The SANCHEZ /2016 [facility] EXT [id number] KAMAL 09/30 09/30 Active The RECOVERY SANCHEZ /2016 [facility] OUTPATIENT [id number] SIDDHARTH 10/28 10/28 Active The JASPER /2016 [facility] EXT [id number] KAMAL 10/29 10/30 Active The RECOVERY SANCHEZ /2016 [facility] OUTPATIENT [id number] AYEL 11/11 11/11 Active The GIANLUCA-A /2016 [facility] OUTPATIENT [id number] YAEL 12/09 12/09 Active The GIANLUCA-A /2017 [facility] OUTPATIENT [id number] YAEL 12/09 Active The GIANLUCA-A [facility] OUTPATIENT [id number] KAMAL 12/15 12/15 Active The SANCHEZ /2017 [facility] O 01/05 01/05 Active The [facility] OUTPATIENT [id number] 02/03 Active [facility]
--- OUTSIDE RECORDS SUMMARY | 2018-01-24 13:41 | External Medical Summary | Encounter Summary ---
:1960 Author Organization [facility] Address [address] [place] [address] Phone Care Team Providers Name Role Phone Seferino Portillo MD Unavailable Pippa Neal Unavailable Unavailable Seferino Portillo MD Unavailable Tia Cunha MD Unavailable Pratibha Blandon LPN Unavailable Unavailable Carrie Ferrer RN Unavailable Unavailable Didi Duarte RN Registered Nurse Unavailable Tiffani Gil RN Unavailable Unavailable Vladimir Munson MD Primary Care Provider Reason for Visit Reason Comments Procedure Encounter Details Date Type Department Care Team Description 12/15/2017 Telephone [facility] Brian Procedure Physicians - Internal Alina Ordonez MD Medicine [address] [facility] [address] [place] [address] [place] [address] Social History Tobacco Use Types Packs/Day Years [...] this encounter Miscellaneous Notes Telephone Encounter - Jessica Alvarenga RN - 12/15/2017 9:40 AM CSTPt notified, verbalizes understanding and agrees with plan Orders entered.Telephone Encounter - Jessica Alvarenga RN - 12/15/2017 9:38 AM 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 I am sorry if this was not clear in my note. Thanks ----- Message ----- From: Jessica Alvarenga RN Sent: 12/15/2017 9:05 AM To: Lindsay Damico MD Good morning Dr. Damico, Please see below message from Dr. Cm. Thank you. 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 in this encounter Plan of Treatment Not on fileas of this encounter Visit Diagnoses Not on filein this encounter
--- OUTSIDE RECORDS SUMMARY | 2018-01-24 13:41 | External Medical Summary | Encounter Summary ---
:1960 Author Organization [facility] Address [address] [place] [address] Phone Care Team Providers Name Role Phone Seferino Portillo MD Unavailable Pippa Neal Unavailable Unavailable Seferino Portillo MD Unavailable Tia Cunha MD Unavailable Pratibha Blandon LPN Unavailable Unavailable Carrie Ferrer RN Unavailable Unavailable Didi Duarte RN Registered Nurse Unavailable Tiffani Gil RN Unavailable Unavailable Vladimir Munson MD Primary Care Provider Encounter Details Date Type Department Care Team Description 01/11/2018 Pharmacy Visit [facility] [address] [place] [phone] Social History Tobacco Use Types Packs/Day Years [...]
--- OUTSIDE RECORDS SUMMARY | 2018-01-24 13:41 | External Medical Summary | Encounter Summary ---
:1960 Author Organization [facility] Address [address] [facility] [place] [address] Phone Care Team Providers Name Role Phone Seferino Portillo MD Unavailable Pippa Neal Unavailable Unavailable Seferino Portillo MD Unavailable Tia Cunha MD Unavailable Pratibha Blandon LPN Unavailable Unavailable Carrie Ferrer RN Unavailable Unavailable Didi Duarte RN Registered Nurse Unavailable Tiffani Gil RN Unavailable Unavailable Vladimir Munson MD Primary Care Provider Encounter Details Date Type Department Care Team Description 12/15/2017 Prep for Case [facility] Brian, Physicians - Internal Alina Ordonez MD [facility] [address] [facility] [address] [place] [address] [place] [address] Social History Tobacco Use Types [...]
--- OUTSIDE RECORDS SUMMARY | 2018-01-24 13:41 | External Medical Summary | Encounter Summary ---
:1960 Author Organization [facility] Address [address] [facility] [address] [place] [address] Phone Care Team Providers Name Role Phone Seferino Portillo MD Unavailable Pippa Neal Unavailable Unavailable Seferino Portillo MD Unavailable Tia Cunha MD Unavailable Pratibha Blandon LPN Unavailable Unavailable Carrie Ferrer RN Unavailable Unavailable Didi Duarte RN Registered Nurse Unavailable Tiffani Gil RN Unavailable Unavailable Vladimir Munson MD Primary Care Provider Encounter Details Date Type Department Care Team Description 12/30/2017 Pharmacy Visit [facility] [address] [place], [place] [id number] Social History Tobacco Use Types Packs/Day Years [...]
--- OUTSIDE RECORDS SUMMARY | 2018-01-24 13:41 | External Medical Summary | Encounter Summary ---
:1960 Author Organization [facility] Address [address] [place] [address] Phone Care Team Providers Name Role Phone Seferino Portillo MD Unavailable Pippa Neal Unavailable Unavailable Seferino Portillo MD Unavailable Tia Cunha MD Unavailable Pratibha Blandon LPN Unavailable Unavailable Carrie Ferrer RN Unavailable Unavailable Didi Duarte RN Registered Nurse Unavailable Tiffani Gil RN Unavailable Unavailable Vladimir Munson MD Primary Care Provider Reason for Visit Reason Comments Lipid Management Encounter Details Date Type Department Care Team Description 01/20/2018 Nurse Only [facility] Familial hypercholesterolemia Physicians - Clinical Pharmacology GROUND FLOOR [address] [place] [address] Social History Tobacco Use Types Packs/Day Years Used Date Former Smoker Cigarettes 0.25 0.5 Quit: 11/15/1975 Smokeless Tobacco: Former User Chew Quit: 11/15/2010 Alcohol Use Drinks/Week oz/Week Comments Yes 4-5 Cans of beer 4.8 - 5.4 4 Standard drinks or equivalent Sex Assigned at Date Recorded Not on file as of this encounter Last Filed Vital Signs Vital Sign Reading Time Taken Blood Pressure 115/73 01/20/2018 10:44 AM RN CLINICAL QUALITY Pulse 70 01/20/2018 10:44 AM RN CLINICAL QUALITY Temperature 36.3 C (97.3 F) 01/20/2018 10:44 AM RN CLINICAL QUALITY Respiratory Rate 12 01/20/2018 10:44 AM RN CLINICAL QUALITY Oxygen Saturation 100% 01/20/2018 7:47 AM RN CLINICAL QUALITY Inhaled Oxygen Concentration - - Weight 72.9 kg (160 lb 12.8 oz) 01/20/2018 10:44 AM RN CLINICAL QUALITY Height - - Body Mass Index 23.75 01/20/2018 10:44 AM RN CLINICAL QUALITY in this encounter Functional Status Functional Status Response [...] impairment: No 10/28/2017 as of this encounter Progress Notes Seferino Portillo MD - 01/20/2018 8:00 AM CSTPresent throughout patients therapy.Conchita Cerda, AMISHA - 01/20/2018 8:00 AM CSTPatient to clinic for Lipoprotein apheresis treatment. Cleaned bilateral AC's with CHLOROPREP swabs and allowed to air dry. Treatment started with no problems. Patient resting in recliner. Will monitor closely throughout treatment. See doc flow sheet. Conchita Cerda RN Patient tolerated treatment well. 100% rinse back returned to patient. Pressures held until no signsof bleeding noted. Pressures held with sureseal band aids, 4x4 gauze, and secured with Coban for pressure dressing. Patient will return to clinic in 2 weeks. See doc flow sheet. Conchita Cerda RN in this encounter Plan of Treatment Not on fileas of this encounter Visit Diagnoses Diagnosis Familial hypercholesterolemia Pure hypercholesterolemia Administered Medications Inactive Administered Medications - up to 3 most recent administrations Medication Order MAR Action Action Date Dose Rate Site diphenhydrAMINE (BENADRYL) injection 25 Given 01/20/2018 07:59 RN CLINICAL QUALITY 25 mg mg 25 mg, Intravenous, ONCE, 1 dose, Ling 01/20/18 at 0815 heparin (porcine) 30,000 Given - New Bag 01/20/2018 07:58 RN CLINICAL QUALITY 2,000 Units/hr 2 mL/hr units/30 mL infusion (SYR) (KANEKA APHERESIS) 2,000 Units/hr (2 mL/hr), at 2 mL/hr, Apheresis, TITRATE DIRECTED , Starting Ling 01/20/18 at 0815, Until Ling 01/20/18 at 2014, Initiate heparin infusion at 2000 units/hr and titrate per protocol NOTE: This is a HIGH ALERT Medication. heparin (porcine) bolus for continuous inf Given 01/20/2018 07:58 RN CLINICAL QUALITY 3,000 Units (SYR) (KANEKA) 3,000 Units 3,000 Units, Apheresis, ONCE, 1 dose, Ling 01/20/18 at 0815, NOTE: This is a HIGH ALERT Medication in this encounter
--- OUTSIDE RECORDS SUMMARY | 2018-01-24 13:41 | External Medical Summary | Encounter Summary ---
:1960 Author Organization [facility] Address [address] [place] [address] Phone Care Team Providers Name Role Phone Seferino Portillo MD Unavailable Pippa Neal Unavailable Unavailable Seferino Portillo MD Unavailable Tia Cunha MD Unavailable Pratibha Blandon LPN Unavailable Unavailable Carrie Ferrer RN Unavailable Unavailable Didi Duarte RN Registered Nurse Unavailable Tiffani Gil RN Unavailable Unavailable Vladimir Munson MD Primary Care Provider Reason for Visit Reason Comments Test/procedure OS CT chest Encounter Details Date Type Department Care Team Description 01/20/2018 Telephone [facility] Cardiology Carine Dial, Test/procedure (OSH CT [address] RN chest) [facility] [address] [place], [place] [id number] Social History Tobacco Use Types Packs/Day Years [...] Telephone Encounter - Carine Dial RN - 01/20/2018 4:45 PM CSTPatient called and LM on nurse line today. Mr. Urias states he recently had CT chest at outside facility suggesting congestive heart failure. Patient states he would like Dr. Avila to be aware and offer further recommendation. Will review with EVELYNE.in this encounter Plan of Treatment Not on fileas of this encounter Visit Diagnoses Not on filein this encounter
--- OUTSIDE RECORDS SUMMARY | 2018-01-24 13:41 | External Medical Summary | Encounter Summary ---
:1960 Author Organization [facility] Address [address] [place] [address] Phone Care Team Providers Name Role Phone Sefernio Portillo MD Unavailable Pippa Neal Unavailable Unavailable Seferino Portillo MD Unavailable Tia Cunha MD Unavailable Pratibha Blandon LPN Unavailable Unavailable Carrie Ferrer RN Unavailable Unavailable Didi Duarte RN Registered Nurse Unavailable Tiffani Gil RN Unavailable Unavailable Vladimir Munson MD Primary Care Provider Encounter Details Date Type Department Care Team Description 12/28/2017 Documentation [facility] Kailee Samson [address] [place] [address] Social History Tobacco Use Types Packs/Day Years [...] 10/28/2017 as of this encounter Progress Notes Kailee Samson - 12/28/2017 11:05 AM CSTThe medication assistance application for Humira has been approved for Juan Luis Urias from 12/28/17 to 11/14/18. The patient will receive the medication directly from the drug company during the approval period. Drug Company Medication Assistance Contact Information: [employer] [phone] [facility] Patient Advocatein this encounter Plan of Treatment Not on fileas of this encounter Visit Diagnoses Not on filein this encounter
--- OUTSIDE RECORDS SUMMARY | 2018-01-24 13:41 | External Medical Summary | Encounter Summary ---
:1960 Author Organization [facility] Address [address] [place] [address] Phone Care Team Providers Name Role Phone Seferino Portillo MD Unavailable Pippa Neal Unavailable Unavailable Seferino Portillo MD Unavailable Tia Cunha MD Unavailable Pratibha Blandon LPN Unavailable Unavailable Carrie Ferrer RN Unavailable Unavailable Didi Duarte RN Registered Nurse Unavailable Tiffani Gil RN Unavailable Unavailable Vladimir Munson MD Primary Care Provider Reason for Visit Reason Comments GI Problem 4 week Encounter Details Date Type Department Care Team Description 01/20/2018 Office Visit [facility] Kourtney-Aslinia, Ulcerative pancolitis without complication (HCC) (Primary Dx); Physicians - Internal Alina Ordonez MD Other iron deficiency anemia; Medicine [address] Vitamin D deficiency; [address] [place], [place] Colon cancer screening; [phone] Coronary artery disease involving atka coronary artery of atka heart without angina pectoris; [place], [place] [phone] Systolic congestive heart failure, unspecified chronicity (HCC) [address] [phone] Social History Tobacco Use Types Packs/Day Years [...] Taken Blood Pressure 135/62 01/20/2018 3:32 PM YARN PACKER Pulse 79 01/20/2018 3:32 PM YARN PACKER Temperature - - Respiratory Rate 16 01/20/2018 3:32 PM YARN PACKER Oxygen Saturation 100% 01/20/2018 3:32 PM YARN PACKER Inhaled Oxygen Concentration - - Weight 73.5 kg (162 lb) 01/20/2018 3:32 PM YARN PACKER Height 179.8 cm (5' 10.8") 01/20/2018 3:32 PM YARN PACKER Body Mass Index 22.72 01/20/2018 3:32 PM YARN PACKER in this encounter Functional Status Functional Status [...] impairment: No 10/28/2017 as of this encounter Instructions Patient Instructions - Jessica Alvarenga RN - 01/20/2018 3:00 [address] CSTDr. Cm is recommending: Hold Humira for now until seen by Event Marketing Specialist. Restart Lialda. Follow up in 6 weeks. If you have any questions or concerns related to your care please contact AMISHA Lopez via [employer] (preference) or @ [phone]. in this encounter Progress Notes Kourtney-Alina Cm MD - 01/20/2018 3:00 PM CSTCCFA Checklist for adult IBD patients: 1. Vaccinations: The patient was advised to receive influenza vaccine during the flu season and pneumonia vaccine. The patient will receive the list of prior vaccinations from primary care physician's office for our review. He reports being uptodate on flu vaccine and pneumonia vaccine. 2. Cancer prevention: -Annual skin cancer screening: He needs to see a boring mill set up operator -Colonoscopy for colorectal cancer screenin years ago 3. Bone health: - A DEXA scan will be performed once every 2 years in case of prior steroid exposure--osteoporosis: He is scheduled to have it in 2 weeks. - Daily calcium and vitamin D intake is advised-. He is currently taking Vitamin D supplement -Vitamin D level will be checked. 4. Smoking status: Former smoker 5. Depression check through PHQ-9 depression survey: 0 6. Other health maintenance points: -Hepatitis B panel prior to initiation of biologic therapy: Up-to-date -Yearly QuantiFERON Gold while on biologic therapy: Up-to-date -CBC and compressive metabolic panel every 2-3 months while on biologic therapy : He is just being started on biologic agents. 7. Nutritional assessment: -Check vitamin B12 level in case of ileal disease or ileal resection -Iron panel: He is anemia. Integra Plus recommended. Up-to-date. Alina Torres MD - 01/20/2018 3:00 PM CSTFormatting of this note may be different from the original. Reason for Visit: Follow-up on IBD HPI: Mr. Urias presented today for follow-up. He received the first dose of Humira injection. It seems that there was some confusion and he only received one injection instead of 4. He had some cardiac investigations at the local hospital and was told that he has congestive heart failure. He also had a CT scan of the chest to rule out pulmonary embolism which was negative for PE. He currently has 2-4 bowel movements per day, described as formed to semi- formed. He noticed significant improvement in his symptoms right after the first Humira injection. HPI as of December 09, 2017: Mr. Juan Luis Urias presented today for follow-up. Here are his active symptoms: -He now has 1-2 formed bowel movement throughout the day. He is currently taking 2 Imodium in the morning. He does not require Pepto-Bismol. -The abdominal pain and cramping improved without intervention. -Fecal urgency improved since the last visit and it only occasionally occurs. - The rectal bleeding improved. He is currently off steroids. He only takes 1 dose for management of itching before lipidopheresis which is once every 2 weeks. HPI as october: Mr. Gandhi is a 57-year-old gentleman who presented to establish care for ulcerative colitis. The following are his active symptoms: - He may have up to 10 loose bowel movement throughout the day despite taking 2 Imodium in the morning. He sometimes takes Pepto-Bismol to help with this problem. - He complains of lower abdominal pain and cramping,mild to moderate in severity. -He experiences fecal urgency. -He sometimes experiences constipation. -He reports rectal bleeding and the stool is mixed with blood. History of the disease: He has never been hospitalized for ulcerative colitis. He has been taking prednisone 10 mg daily off-and-on. He has been on prednisone for an extended period of time. 1996: He was diagnosed with ulcerative colitis. He was treated with Asacol and steroids at that time. 1999: He was diagnosed with primary sclerosing cholangitis on liver biopsy sometime between 2001 [id number]:He has been started on ursodiol at that time. 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 However, hereports that he has had symptoms suggestive of chronic liver disease in year 1999. [facility]: Started on Remicade. He did not notice significant improvement with Remicade. Patient was discontinued when he went on disability. [id number]: He was treated for coronary artery disease and peripheral vascular disease with stent placement and CABG. 2011: He was started on Lialda and Entocort. However, he continued to have intermittent steroid therapy. January 2017: He has had a colonoscopy and EGD in December 2016. The EGD was unremarkable and onlyshowed a small hiatal hernia. The colonoscopy showed mild to moderate pancolitis. The4-quadrant biopsies every 10 cm were negative for dysplasia, but it was positive for active chronic colitis. The terminal ileum was normal. November 2017: He was diagnosed with iron and vitamin D deficiency. A DEXA scan was also performed which showed osteoporosis and he was started on Fosamax. A prescription for Humira was given. He also suffers from coronary artery disease and peripheral vascular disease. He has hyperlipidemia requiring Lipidopheresis. He had numerous stent placements in the coronary arteries and recently in the peripheral arteries in the right lower leg. He also had 2 CABGs in 2009 and 2013. PMH: Past Medical History: Diagnosis Date CAD (coronary artery disease) 02/18/2015 CAD (coronary artery disease), atka coronary artery 02/18/2015 12/25/2014 - Stress Test: Abnormal MPI with evidence of infarct in the RCA territory. Preserved LV function and absence of stress induced myocardial cavity dilation. [facility] 03/11/17- Cardiac catheterization, left main had an 80% stenosis treated successfully with 1 drug-eluting Xience stent. There was also progressive disease in SVG to PDA, which is likely Chronic liver disease 02/18/2015 DDD (degenerative disc disease) lumbar and cervical spine Depression 02/18/2015 Dyslipidemia Essential hypertension 02/18/2015 Fracture, thoracic vertebra (HCC) GERD (gastroesophageal reflux disease) 02/18/2015 Hematoma History of pulmonary embolism 02/18/201509/2010 HLD (hyperlipidemia) 02/18/2015 HTN (hypertension) Hx MRSA infection 02/18/2015 Hypothyroidism 02/18/2015 Ischemic cardiomyopathy 05/13/2017 PAD (peripheral artery disease) ([facility]) PE (pulmonary embolism) coumadin anticoagulation Primary sclerosing cholangitis PSC (primary sclerosing cholangitis) 02/18/2015 S/P CABG (coronary artery bypass graft) [facility] Type 2 diabetes mellitus (HCC) 02/18/2015 PSH: Past Surgical History: Procedure Laterality Date CORONARY ARTERY BYPASS GRAFT 08/20/2010 quad; with bypass angiography SURGERY 12/2010 right carotid endarterectomy CORONARY STENT PLACEMENT 01/06/2012 x1 PERCUTANEOUS CORONARY INTERVENTION N/A 03/20/2016 Percutaneous Coronary Intervention performed by Tino Durbin MD at [facility] PERCUTANEOUS CORONARY INTERVENTION N/A 03/11/2017 Possible Percutaneous Coronary Intervention performed by Isamar Avila MD at [facility] CORONARY INTERVENTION N/A 04/09/2017 Percutaneous Coronary Intervention to Saphenous Vein Graft, Right Coronary Artery performed by Isamar Avila MD at [facility] PERCUTANEOUS CORONARY INTERVENTION N/A 04/09/2017 Percutaneous Coronary Intervention performed by Isamar Avila MD at [facility] PERCUT[facility]OUS CORONARY INTERVENTION N/A 05/13/2017 Possible Percutaneous Coronary Intervention performed by Isamar Avila MD at [facility] PERCUTANEOUS CORONARY INTERVENTION N/A 09/29/2017 Possible Percutaneous Coronary Intervention performed by Isamar Avila MD at [facility] CARDIAC CATHERIZATION HEART CATHETERIZATION 2016 [place] (R) leg Current Medications: Current Outpatient Prescriptions: adalimumab(+) (HUMIRA PEN) 40 mg/0.8 mL injection pen, Inject 0.8 mL under the skin every 14 days., Disp: 2 each, Rfl: 5 alendronate (FOSAMAX) 70 mg tablet, Take 1 tablet by mouth every 7 days. Take at least 30 minutes before breakfast with plain water. Do not lie down for 30 minutes., Disp: 12 tablet, Rfl: 3 ALPRAZolam (XANAX) 0.25 mg tablet, Take 1 tablet by mouth as Needed for Anxiety (TAKE ONE TABLET PRIOR TO 30 MINUTES PRIOR TO APHERESIS TREATMENT.)., Disp: 30 tablet, Rfl: 0 aspirin EC 81 mg tablet, Take 1 Tab by mouth daily. Take with food., Disp: 90 Tab, Rfl: 3 budesonide (UCERIS) 9 mg ER tablet, Take 1 tablet by mouth daily., Disp: 30 tablet, Rfl: 2 carvedilol (COREG) 6.25 mg tablet, Take 0.5 Tabs by mouth twice daily with meals. Take with food., Disp: 180 Tab, Rfl: 3 chlorthalidone (HYGROTON) 25 mg tablet, Take 25 mg by mouth daily., Disp: , Rfl: CHOLECALCIFEROL (VITAMIN D3) (VITAMIN D3 PO), Take 5,000 Units by mouth daily., Disp: , Rfl: clopiDOGrel (PLAVIX) 75 mg tablet, Take 1 Tab by mouth daily., Disp: 90 Tab , Rfl: 3 ergocalciferol (VITAMIN D-2) 50,000 unit capsule, Take 1 capsule by mouth every 7 days. Take anadditional 5000 IU over the counter in addition., Disp: 4 capsule, Rfl: 1 ergocalciferol (VITAMIN D-2) 50,000 unit capsule, Take 1 capsule by mouth every 7 days., Disp: , Rfl: escitalopram oxalate (LEXAPRO) 20 mg tablet, Take 20 mg by mouth daily., Disp: , Rfl: evolocumab (REPATHA PUSHTRONEX) INFUSOR CARTRIDGE, Inject 420mg under the skin every 30 days., Disp: 3.5 mL, Rfl: 11 evolocumab 420 mg/3.5 mL Injt, Inject 420 mg under the skin every 14 days. , Disp: 2 mL, Rfl: 11 ferrous gluconate 324 mg (36 mg iron) tab, Take 324 mg by mouth daily., Disp: , Rfl: folic acid (FOLVITE) 1 mg tablet, Take 1 mg by mouth daily., Disp: , Rfl: HYDROcodone/acetaminophen (NORCO) 7.5/325 mg tablet, Take 0.5-1 Tabs by mouth every 6 hours as needed for Pain (back pain), Disp: , Rfl: Iron Fum & P-FA-Vit B & C No.9 125 mg iron- 1 mg cap, Take 1 capsule by mouth daily. (Patient taking differently: Take 1 capsule by mouth every 7 days.), Disp: 30 capsule, Rfl: 2 isosorbide mononitrate SR (IMDUR) 30 mg tablet, Take 15 mg by mouth daily as needed (chest painor neck pain)., Disp: , Rfl: loperamide (IMODIUM) 2 mg capsule, Take 4 mg by mouth daily., Disp: , Rfl: losartan(+) (COZAAR) 100 mg tablet, Take 1 Tab by mouth daily., Disp: 90 Tab, Rfl: [address] (PROTONIX) 40 mg tablet, Take 40 mg by mouth daily., Disp: , Rfl: potassium chloride (KDUR) 10 mEq tablet, Take 20 mEq by mouth daily., Disp : , Rfl: Current Facility-Administered Medications: heparin (porcine) 30,000 units/30 mL infusion (SYR) (KANEKA APHERESIS), 2, 000 Units/hr, Apheresis, TITRATE, Seferino Portillo MD, Stopped at 01/20/18 0940 Allergies: Allergies Allergen Reactions Garlic RASH and ITCHING Peanut RASH and ITCHING Chlorhexidine Gluconate ITCHING Sulfa (Sulfonamide Antibiotics) ITCHING Xifaxan [Rifaximin] ITCHING SHx: Social History Substance Use Topics Smoking status: Former Smoker Packs/day: 0.25 Years: 0.50 Types: Cigarettes Quit date: 11/15/1975 Smokeless tobacco: Former User Types: Chew Quit date: 11/15/2010 Alcohol use 4.8 - 5.4 oz/week 4 - 5 Cans of beer, 4 Standard drinks or equivalent per week FHx: Family History Problem Relation Age of Onset Hypertension Mother Heart Attack Father Diabetes Father Stroke Father Heart Disease Father Hypertension Sister Diabetes Brother ROS: Review of Systems Constitutional: Positive for activity change, appetite change and fatigue. HENT: Positive for congestion, rhinorrhea and sore throat. Eyes: Negative. Respiratory: Positive for cough and shortness of breath. Cardiovascular: Positive for leg swelling. Gastrointestinal: Positive for abdominal pain, constipation and nausea. Endocrine: Negative. Genitourinary: Negative. Musculoskeletal: Negative. Skin: Positive for color change and rash. Allergic/Immunologic: Negative. Neurological: Positive for dizziness and weakness. Psychiatric/Behavioral: Positive for decreased concentration and sleep disturbance. All other systems reviewed and are negative. PE: Vitals: 01/20/18 1532 BP: 135/62 Pulse: 79 Resp: 16 SpO2: 100% 73.5 kg (162 lb) Body mass index is 22.72 kg/m. Physical Exam Constitutional: Pt. is oriented to person, place, and time and well-developed, well-nourished, and in no distress. HENT: Head: Normocephalic and atraumatic. Eyes: Conjunctivae and EOM are normal. Pupils are equal, round, and reactive to light. Neck: Normal range of motion. Neck supple. Cardiovascular: Normal rate, regular rhythm and normal heart sounds. Pulmonary/Chest: Effort normal and breath sounds normal. No respiratory distress. Pt. has no wheezes. Pt. has no rales. Abdominal: Soft. Bowel sounds are normal. Pt. exhibits no distension and no mass. There is no tenderness. There is no rebound and no guarding. Musculoskeletal: Normal range of motion. He exhibits no edema, tenderness or deformity. Neurological: Pt. is alert and oriented to person, place, and time. Gait normal. Skin: Skin is warm and dry. No rash noted. No erythema. Psychiatric: Affect and judgment normal. Assessment: 1. Mild to moderate, active, ulcerative pancolitis since 1996 2. Vitamin D deficiency: He is being treated for that. He will have a repeat vitamin D level in February 2018. 3. Iron deficiency anemia: On Integra plus daily. Iron panel, folic acid, vitamin B12 were checked. Those were within normal limits except for iron which was low. 4. Colon cancer screening in the setting of ulcerative pancolitis since 1996: He is due. 5. Primary sclerosing cholangitis: He is seeing oneof our transplant telemarketer supervisor here at [facility]. 6. New onset decompensated CH 7. Coronary artery disease Plan: -I appreciate the feedback from his document controller to better understand the severity of the disease tosee if he is eligible for Humira for management of pancolitis. Anti-TNF agents are contra-indicated in patients with decompensated CHF. -Meanwhile, he will be taking Lialda 4.8 g daily. -Uceris is not being used due to excessive cost. It has been prescribed and approved by the insurance, but the co-pay was over $400. -He needs to be on Plavix at least until June 2018. Therefore, colonoscopy for colon cancer surveillance in the setting of long-standing kidd ulcerative colitis will be postponed until then. -Follow-up in 4-6 weeks. A copy of this report should go to Dr. Frank Edwards at [facility] Total face to face time spent with patient: 50 minutes with >50% of that time spent counseling the patient on medications, prior study results related to symptoms, differential diagnosis, and options regarding the plan of care. Alina Torres MD 01/20/18 This note was, in part, completed with [facility], a voice recognition software. Some grammatical errors may have occurred. If you have concerns, please contact my office for clarifications. in this encounter Plan of Treatment Not on fileas of this encounter Visit Diagnoses Diagnosis Ulcerative pancolitis without complication (HCC) - Primary Other iron deficiency anemia Vitamin D deficiency Unspecified vitamin D deficiency Colon cancer screening Special screening for malignant neoplasms, colon Coronary artery disease involving atka coronary artery of atka heart without angina pectoris Systolic congestive heart failure, unspecified chronicity (HCC)
--- OUTSIDE RECORDS SUMMARY | 2018-01-24 13:41 | External Medical Summary | Encounter Summary ---
:1960 Author Organization [facility] Address [address] [place] [address] Phone Care Team Providers Name Role Phone Seferino Portillo MD Unavailable Pippa Neal Unavailable Unavailable Seferino Portillo MD Unavailable Tia Cunha MD Unavailable Pratibha Blandon LPN Unavailable Unavailable Carrie Ferrer RN Unavailable Unavailable Didi Duarte RN Registered Nurse Unavailable Tiffani Gil RN Unavailable Unavailable Vladimir Munson MD Primary Care Provider Encounter Details Date Type Department Care Team Description 01/05/2018 Hospital Encounter [facility] Radiology [address] [place], [place] [id number] Social History Tobacco Use Types Packs/Day Years [...] impairment: No 10/28/2017 as of this encounter Medications at Time of Discharge Medication Sig. Disp. Refills Start Date End Date adalimumab(+) (HUMIRA PEN) Inject 0.8 mL under 2 each 5 12/09/2017 40 mg/0.8 mL injection the skin every 14 penIndications: ULCERATIVE days. COLITIS alendronate (FOSAMAX) 70 Take 1 tablet by 12 tablet 3 12/13/2017 mg tablet mouth every 7 days. Take at least 30 minutes before breakfast with plain water. Do not lie down for 30 minutes. ALPRAZolam (XANAX) 0.25 mg Take 1 tablet by 30 tablet 0 10/28/2017 tablet mouth as Needed for Anxiety (TAKE ONE TABLET PRIOR TO 30 MINUTES PRIOR TO APHERESIS TREATMENT.). aspirin EC 81 mg tablet Take 1 Tab by mouth 90 Tab 3 08/25/2016 daily. Take with food. budesonide (UCERIS) 9 mg Take 1 tablet by 30 tablet 2 11/11/2017 ER tabletIndications: mouth daily. Vitamin D deficiency, Ulcerative colitis with complication, unspecified location ([facility]) carvedilol (COREG) 6.25 mg Take 0.5 Tabs by 180 Tab 3 04/11/2017 tabletIndications: mouth twice daily Coronary artery disease with meals. Take involving hughes coronary with food. artery of hughes heart with angina pectoris ([facility]) chlorthalidone (HYGROTON) Take 25 mg by mouth 25 mg tablet daily. CHOLECALCIFEROL (VITAMIN Take 5,000 Units by D3) (VITAMIN D3 PO) mouth daily. clopiDOGrel (PLAVIX) 75 mg Take 1 Tab by mouth 90 Tab 3 04/11/2017 tabletIndications: daily. 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 Take an additional 5000 IU over the counter in addition. ergocalciferol (VITAMIN Take 1 capsule by D-2) 50,000 unit capsule mouth every 7 days. escitalopram oxalate Take 20 mg by mouth (LEXAPRO) 20 mg tablet daily. evolocumab (REPATHA Inject 420mg under 3.5 mL 11 10/21/2017 PUSHTRONEX) INFUSOR the skin every 30 CARTRIDGE days. evolocumab 420 mg/3.5 mL Inject 420 mg under 2 mL 11 08/13/2017 Injt the skin every 14 days. ferrous gluconate 324 mg Take 324 mg by mouth (36 mg iron) tab daily. folic acid (FOLVITE) 1 mg Take 1 mg by mouth 04/22/2015 tablet daily. HYDROcodone/acetaminophen Take 0.5-1 Tabs by (NORCO) 7.5/325 mg tablet mouth every 6 hours as needed for Pain (back pain) Iron Fum & P-FA-Vit B Take 1 capsule by 30 capsule 2 11/19/2017 & C No.9 125 mg iron- mouth daily. 1 mg cap isosorbide mononitrate SR Take 15 mg by mouth (IMDUR) 30 mg tablet daily as needed (chest pain or neck pain). loperamide (IMODIUM) 2 mg Take 4 mg by mouth capsule daily. losartan(+) (COZAAR) 100 Take 1 Tab by mouth 90 Tab 3 03/12/2017 mg tabletIndications: daily. 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 potassium chloride (KDUR) Take 20 mEq by mouth 10 mEq tablet daily. as of this encounter Plan of Treatment Not on fileas of this encounter Results CT CHEST EXTERNAL IMAGING (01/05/2018) Narrative This order has been auto finalized and does not contain a result. in this encounter Visit Diagnoses Diagnosis Diagnosis unknown Other unknown and unspecified cause of morbidity or mortality
--- OUTSIDE RECORDS SUMMARY | 2018-01-24 13:41 | External Medical Summary | Encounter Summary ---
:1960 Author Organization [facility] Address [address] [place] [address] Phone Care Team Providers Name Role Phone Seferino Portillo MD Unavailable Pippa Neal Unavailable Unavailable Seferino Portillo MD Unavailable Tia Cunha MD Unavailable Pratibha Blandon LPN Unavailable Unavailable Carrie Ferrer RN Unavailable Unavailable Didi Duarte RN Registered Nurse Unavailable Tiffani Gil RN Unavailable Unavailable Vladimir Munson MD Primary Care Provider Encounter Details Date Type Department Care Team Description 01/03/2018 Pharmacy Visit [facility] [address] [place] [phone] Social History Tobacco Use Types Packs/Day Years [...]
--- OUTSIDE RECORDS SUMMARY | 2018-01-24 13:41 | External Medical Summary | Encounter Summary ---
:1960 Author Organization [facility] Address [address] [place] [address] Phone Care Team Providers Name Role Phone Seferino Portillo MD Unavailable Pippa Neal Unavailable Unavailable Seferino Portillo MD Unavailable Tia Cunha MD Unavailable Pratibha Blandon LPN Unavailable Unavailable Carrie Ferrer RN Unavailable Unavailable Didi Duarte RN Registered Nurse Unavailable Tiffani Gil RN Unavailable Unavailable Vladimir Munson MD Primary Care Provider Encounter Details Date Type Department Care Team Description 01/03/2018 Documentation [facility] Antonio Teel [address] [place] [address] Social History Tobacco Use Types [...] 10/28/2017 as of this encounter Progress Notes Rajni Tee - 01/03/2018 12:16 PM CSTThe medication assistance application for Repatha has been approved for Juan Luis Helga Timmonsanai from 01/03/18 to 11/14/18. The patient will receive the medication directly from the drug company during the approval period. Drug Company Medication Assistance Contact Information: [phone] [facility] Patient Advocate in this encounter Plan of Treatment Not on fileas of this encounter Visit Diagnoses Not on filein this encounter
--- OUTSIDE RECORDS SUMMARY | 2018-01-24 13:41 | External Medical Summary | Encounter Summary ---
:1960 Author Organization [facility] Address [address] [facility] [address] [place] [address] Phone Care Team Providers Name Role Phone Seferino Portillo MD Unavailable Pippa Neal Unavailable Unavailable Seferino Portillo MD Unavailable Tia Cunha MD Unavailable Pratibha Blandon LPN Unavailable Unavailable Carrie Ferrer RN Unavailable Unavailable Didi Duarte RN Registered Nurse Unavailable Tiffani Gil RN Unavailable Unavailable Vladimir Munson MD Primary Care Provider Encounter Details Date Type Department Care Team Description 12/20/2017 Pharmacy Visit [facility] [address] [place], [place] [id number] Social History Tobacco Use Types Packs/Day Years [...]
--- OUTSIDE RECORDS SUMMARY | 2018-01-24 13:42 | External Medical Summary | Encounter Summary ---
:1960 Author Organization [facility] Address [address] [place] [address] Phone Care Team Providers Name Role Phone Seferino Portillo MD Unavailable Pippa Neal Unavailable Unavailable Seferino Portillo MD Unavailable Tia Cunha MD Unavailable Pratibha Blandon LPN Unavailable Unavailable Carrie Ferrer RN Unavailable Unavailable Didi Duarte RN Registered Nurse Unavailable Tiffani Gil RN Unavailable Unavailable Vladimir Munson MD Primary Care Provider Reason for Referral Consult, Test & Treat Status Reason Specialty Diagnoses / Procedures Referred By Referred To Contact Contact No Auth Needed Cardiology Diagnoses Chronic liver disease PAD (peripheral artery disease) (HCC) Hx MRSA infection Ischemic cardiomyopathy Isamar Avila MD [facility] Procedures PV BANDAR ARTERIAL COMPLETE (AO + LOWER EXTRM) DE DUP-SCAN AORTA IVC ILIAC VASCL/BPGS COMPLETE [address] [place] [address] [place] [address] Phone: Fax: Consult, Test & Treat Status Reason Specialty Diagnoses / Procedures Referred By Referred To Contact Contact No Auth Needed Cardiology Diagnoses Chronic liver disease PAD (peripheral artery disease) (HCC) Hx MRSA infection Ischemic cardiomyopathy Isamar Avila MD [facility] Procedures PV BANDAR ARTERIAL COMPLETE (AO + LOWER EXTRM) DE DUP-SCAN AORTA IVC ILIAC VASCL/BPGS COMPLETE [address] [place] [address] [place] [address] Phone: Fax: Reason for Visit Consult, Test & Treat Status Reason Specialty Diagnoses / Procedures Referred By Referred To Contact Contact No Auth Needed Cardiology Diagnoses Chronic liver disease PAD (peripheral artery disease) (HCC) Hx MRSA infection Ischemic cardiomyopathy Isamar Avila MD [facility] Procedures PV BANDAR ARTERIAL COMPLETE (AO + LOWER EXTRM) DE DUP-SCAN AORTA IVC ILIAC VASCL/BPGS COMPLETE [address] [place] [address] [place] [address] Phone: Fax: Encounter Details Date Type Department Care Team Description 12/15/2017 Hospital Encounter [facility] Cardiology Isamar Avila MD [address] [place] [address] [address] [place] [address] [phone] Social History Tobacco Use Types Packs/Day Years [...] Vital Sign Reading Time Taken Blood Pressure 114/72 12/15/2017 1:05 PM JOB TRACER Pulse - - Temperature - - Respiratory Rate - - Oxygen Saturation - - Inhaled Oxygen Concentration - - Weight 74.3 kg (163 lb 12.8 oz) 12/15/2017 1:05 PM JOB TRACER Height 180 cm (5' 10.87") 12/15/2017 1:05 PM JOB TRACER Body Mass Index 22.93 12/15/2017 1:05 PM JOB TRACER in this encounter Functional Status Functional Status [...] Ulcerative colitis with complication, unspecified location (HCC) carvedilol (COREG) 6.25 mg Take 0.5 Tabs by 180 Tab 3 04/11/2017 tabletIndications: mouth twice daily Coronary artery disease with meals. Take involving [place] coronary with food. artery of [place] heart with angina pectoris (HCC) chlorthalidone (HYGROTON) Take 25 mg by mouth 25 mg tablet daily. CHOLECALCIFEROL (VITAMIN Take 5,000 Units by D3) (VITAMIN D3 PO) mouth daily. clopiDOGrel (PLAVIX) 75 mg Take 1 Tab by mouth 90 Tab 3 04/11/2017 tabletIndications: daily. Coronary artery disease involving angoon coronary artery of angoon heart with unstable angina pectoris (HCC), Chronic liver disease, S/P CABG (coronary artery bypass graft), PAD (peripheral artery disease) ([facility]), Gastroesophageal reflux disease without esophagitis, Essential hypertension with goal blood pressure less than 130/85, Other hyperlipidemia, Accelerating angina (HCC), Coronary artery disease involving angoon coronary artery of [place]go[place] heart with angina pectoris (HCC) ergocalciferol (VITAMIN Take 1 capsule by 4 [...] mg tabletIndications: daily. Coronary artery disease involving angoon coronary artery of [place]goon heart with angina pectoris (HCC) pantoprazole DR (PROTONIX) Take 40 mg by mouth 40 mg tablet daily. potassium chloride (KDUR) Take 20 mEq by mouth 10 mEq tablet daily. as of this encounter Plan of Treatment Not on fileas of this encounter Results PV BANDAR ARTERIAL COMPLETE (AO + LOWER [...] 2.0 Left external iliac ratio 1.6 RIGHT RING CUTTER LATHE OPERATOR PROX SYS MAX 2.01 m/s RIGHT RING CUTTER LATHE OPERATOR DIST SYS MAX 1.9 m/s RIGHT PROFUNDA [...] RIGHT PERONEAL SYS MAX 0.28 m/s LEFT RING CUTTER LATHE OPERATOR PROX SYS MAX 2.22 m/s LEFT RING CUTTER LATHE OPERATOR DIST SYS MAX 2.96 m/s LEFT PROFUNDA [...] were not imaged on this previous study. in this encounter Visit Diagnoses Diagnosis Chronic liver disease Unspecified chronic liver disease without mention of alcohol PAD (peripheral artery disease) (HCC) Peripheral vascular disease, unspecified Hx MRSA infection Personal history of Methicillin resistant Staphylococcus aureus Ischemic cardiomyopathy Other specified forms of chronic ischemic heart disease
--- OUTSIDE RECORDS SUMMARY | 2018-01-24 13:42 | External Medical Summary | Encounter Summary ---
:1960 Author Organization [facility] Address [address] [place] [address] Phone Care Team Providers Name Role Phone Seferino Portillo MD Unavailable Pippa Neal Unavailable Unavailable Seferino Portillo MD Unavailable Tia Cunha MD Unavailable Pratibha Blandon LPN Unavailable Unavailable Carrie Ferrer RN Unavailable Unavailable Didi Duarte RN Registered Nurse Unavailable Tiffani Gil RN Unavailable Unavailable Vladimir Munson MD Primary Care Provider Encounter Details Date Type Department Care Team Description 12/13/2017 Orders Only [facility], Physicians - Internal Alina Ordonez MD Medicine [address] [facility] [address] [place] [address] [address] [facility] [phone] [place] [address] Social History Tobacco Use Types [...]
--- OUTSIDE RECORDS SUMMARY | 2018-01-24 13:42 | External Medical Summary | Encounter Summary ---
:1960 Author Organization [facility] Address [address] [facility] [address] [place] [address] Phone Care Team Providers Name Role Phone Seferino Portillo MD Unavailable Pippa Neal Unavailable Unavailable Seferino Portillo MD Unavailable Tia Cunha MD Unavailable Pratibha Blandon LPN Unavailable Unavailable Carrie Ferrer RN Unavailable Unavailable Didi Duarte RN Registered Nurse Unavailable Tiffani Gil RN Unavailable Unavailable Vladimir Munson MD Primary Care Provider Encounter Details Date Type Department Care Team Description 12/13/2017 Documentation [facility] Kailee Samson [address] [place] [address] Social History Tobacco Use Types [...] this encounter Progress Notes Kailee Samson - 12/13/2017 3:32 PM CSTThe Prior Authorization for Humira was approved for Juan Luis Urias from 12/13/17 to 12/13/18. The copay is $ 3018.12. Juan Luis Urias has stated this copay is not affordable. Pharmacy will work on obtaining medication assistance. [facility] Patient Advocate in this encounter Plan of Treatment Not on fileas of this encounter Visit Diagnoses Not on filein this encounter
--- OUTSIDE RECORDS SUMMARY | 2018-01-24 13:42 | External Medical Summary | Encounter Summary ---
:1960 Author Organization [facility] Address [address] [facility] [address] [place] [address] Phone Care Team Providers Name Role Phone Seferino Portillo MD Unavailable Pippa Neal Unavailable Unavailable Seferino Portillo MD Unavailable Tia Cunha MD Unavailable Pratibha Blandon LPN Unavailable Unavailable Carrie Ferrer RN Unavailable Unavailable Didi Duarte RN Registered Nurse Unavailable Tiffani Gil RN Unavailable Unavailable Vladimir Munson MD Primary Care Provider Encounter Details Date Type Department Care Team Description 12/10/2017 Pharmacy Visit [facility] [address] [place], [place] [phone] Social History Tobacco Use Types Packs/Day Years [...]
--- OUTSIDE RECORDS SUMMARY | 2018-01-24 13:42 | External Medical Summary | Encounter Summary ---
:1960 Author Organization [facility] Address [address] [facility] [address] [place] [address] Phone Care Team Providers Name Role Phone Seferino Portillo MD Unavailable Pippa Neal Unavailable Unavailable Seferino Portillo MD Unavailable Tia Cunha MD Unavailable Pratibha Blandon LPN Unavailable Unavailable Carrie Ferrer RN Unavailable Unavailable Didi Duarte RN Registered Nurse Unavailable Tiffani Gil RN Unavailable Unavailable Vladimir Munson MD Primary Care Provider Reason for Referral Status Reason Specialty Diagnoses / Referred By Referred To Procedures Contact Contact New Request Procedures Isamar Avila MD [facility] [address] [facility] [address] [place] [address] Reason for Visit Reason Comments Cardiac Eval s/p cath 10/29, claudication, edema Encounter Details Date Type Department Care Team Description 12/15/2017 Office Visit [facility] Isamar Avila MD Cardiac Eval (s/p cath Cardiology [address] 10/29, claudication, [address] edema) [place], [place] [address] [address] [place] [address] [phone] Social History Tobacco Use Types Packs/Day Years [...] Vital Sign Reading Time Taken Blood Pressure 138/70 12/15/2017 2:38 PM PACKING ROOM SUPERVISOR Pulse 71 12/15/2017 2:38 PM PACKING ROOM SUPERVISOR Temperature - - Respiratory Rate - - Oxygen Saturation 97% 12/15/2017 2:38 PM PACKING ROOM SUPERVISOR Inhaled Oxygen Concentration - - Weight 74.4 kg (164 lb) 12/15/2017 2:38 PM PACKING ROOM SUPERVISOR Height 175.3 cm (5' 9") 12/15/2017 2:38 PM PACKING ROOM SUPERVISOR Body Mass Index 24.22 12/15/2017 2:38 PM PACKING ROOM SUPERVISOR in this encounter Functional Status Functional Status [...] 10/28/2017 as of this encounter Progress Notes Isamar Avila MD - 12/15/2017 2:30 PM CSTFormatting of this note may be different from the original. Date of Service: 12/15/2017 Juan Luis Urias is a 57 y.o. male. HPI Mr. Timmons he comes today in follow-up for his extensive and progressive atherosclerotic coronary and peripheral arterial disease. As you know he is a remarkably pleasant gentleman with significant advanced liver disease and familial hypercholesterolemia with LDL levels are extremely high in spite ofRepatha and now on reinstitution of lipid apheresis. He reports stable angina today. He is reporting some shortness of breath at night which I am not sure his orthopnea and PND but its appears to be mild and I have asked him to take a as needed Lasix to see if that improves. In terms of claudication he feels that his calf is much improved after the last intervention of his right leg but he feels as thighs are aching more. Duplex ultrasound done today shows patent angioplasty site in the right leg SFA but worsening stenosis in the right external iliac and perhaps also on the left side. This is not surprising but frustrating. He has multiple progressive and rapidly worsening atherosclerotic disease of I have seen. At this point his symptoms are still not severe and I am going to continue conservative management and see him back in a few months. I am thankful that his angina is stable. He asked me with the safe to stop his clopidogrel for upcoming colonoscopy because of his ulcerativecolitis. My recommendation was because of recent stents in the last 1 year he should continue dual antiplatelet therapy for 1 year as he has so many stents. One option was to have a colonoscopy done if anything suspicious is noted that we will have to probably bridge him in the hospital prior to proceeding with further workup. This can be held off for a few months I would recommend doing that we can reassess this in May. Vitals: 12/15/17 1438 BP: 138/70 Pulse: 71 SpO2: 97% Weight: 74.4 kg (164 lb) Height: 1.753 m (5' 9") Body mass index is 24.22 kg/m. Past Medical History Patient Active Problem List Diagnosis Date Noted Esophageal varices (HCC) 12/15/2017 Added automatically from request for surgery [id number] Ulcerative pancolitis (HCC) 12/09/2017 Added automatically from request for surgery [id number] Shortness of breath 09/29/2017 Chest pain 09/29/2017 Vitamin D deficiency 09/14/2017 Ischemic cardiomyopathy 05/13/2017 Unstable angina (HCC) 08/24/2016 CAD (coronary artery disease), [place] coronary artery 02/18/2015 12/25/2014 - Stress Test: Abnormal MPI with evidence of infarct in the RCA territory. Preserved LV function and absence of stress induced myocardial cavity dilation. ([facility]). 03/11/17- Cardiac catheterization, left main had an 80% stenosis treated successfully with 1 drug-eluting Xience stent. There was also progressive disease in SVG to PDA, to be treated at a later date 04/09/17: Drug-eluting stent PCI of SVG to PDA by Dr. Avila Chronic liver disease 02/18/2015 S/P CABG (coronary artery bypass graft) 02/18/2015 1. 08/2010 - CABG - KWON to LAD, SVG sequential to Diagonal 1 & 2; SVG to distal RCA. 2. 12/2013 - PCI - SVG of proximal RCA. 3. 10/2014 - PCI - occluded SVG to RCA with diffuse disease; LM ostial stenosis treated with Multi-Link Ultra stent x1. Thallium with ischemia in RCA segment. Following intervention continued to haveangina. 4. 10/2014 - Redo sternotomy with CABG x1 - SVG to RCA PAD (peripheral artery disease) (HCC) 02/18/2015 1. 11/20/16 - CTA right LE - [...] at 60% stenosis; additional proximal stenosis of 50-60 %. Popliteal artery patent. Tibioperoneal trunkpatent. Three-vessel runoff through the ankle. GERD (gastroesophageal reflux disease) 02/18/2015 PSC (primary sclerosing cholangitis) 02/18/2015 Hypothyroidism 02/18/2015 Depression 02/18/2015 Essential hypertension 02/18/2015 Hx MRSA infection 02/18/2015 Ulcerative colitis with complication (HCC) 02/18/2015 History of pulmonary embolism 02/18/201509/2010 HLD (hyperlipidemia) 02/18/2015 Review of Systems Constitution: Negative. HENT: Negative. Eyes: Negative. Cardiovascular: Positive for claudication, dyspnea on exertion, leg swelling and paroxysmal nocturnal dyspnea. Respiratory: Negative. Endocrine: Negative. Hematologic/Lymphatic: Negative. Skin: Negative. Musculoskeletal: Negative. Gastrointestinal: Negative. Genitourinary: Negative. Neurological: Negative. Psychiatric/Behavioral: Negative. Allergic/Immunologic: Negative. All other systems reviewed and are negative. Physical Exam General Appearance:no acute distress Skin:warm &intact HEENT:unremarkable Neck Veins:neck veins are flat &not distended Carotid Arteries:right carotid bruit Chest Inspection:chest is normal in appearance Auscultation/Percussion:lungs clear to auscultation, no rales, rhonchi, or wheezing Cardiac Rhythm:regular rhythm &normal rate Cardiac Auscultation:Normal S1 &S2, no S3 or S4, no rub Murmurs:no cardiac murmurs Extremities:no lower extremity edema; Pulses: Pulses: (Scale 4=normal, 0=absent) Right Femoral: 4+, Dorsalis Pedis: 3+, Posterior Tibial: 3+ Left Femoral: 4+, Dorsalis Pedis: 2+, Posterior Tibial: 3+ Problems Addressed Today Encounter Diagnoses Name Primary? Coronary artery disease involving [place] coronary artery with unstable angina pectoris, unspecified whether [place] or transplanted heart (HCC) Chronic liver disease S/P CABG (coronary artery bypass graft) PAD (peripheral artery disease) (HCC) Gastroesophageal reflux disease without esophagitis Other specified hypothyroidism Hx MRSA infection Mixed hyperlipidemia Ischemic cardiomyopathy Current Medications (including today's revisions) adalimumab(+) (HUMIRA PEN) 40 mg/0.8 mL injection pen Inject 0.8 mL under the skin every 14 days. alendronate (FOSAMAX) 70 mg tablet Take 1 tablet by mouth every 7 days. Take at least 30 minutesbefore breakfast with plain water. Do not lie down for 30 minutes. ALPRAZolam (XANAX) 0.25 mg tablet Take 1 tablet by mouth as Needed for Anxiety (TAKE ONE TABLET PRIOR TO 30 MINUTES PRIOR TO APHERESIS TREATMENT.). aspirin EC 81 mg tablet Take 1 Tab by mouth daily. Take with food. budesonide (UCERIS) 9 mg ER tablet Take 1 tablet by mouth daily. carvedilol (COREG) 6.25 mg tablet Take 0.5 Tabs by mouth twice daily with meals. Take with food. chlorthalidone (HYGROTON) 25 mg tablet Take 25 mg by mouth daily. CHOLECALCIFEROL (VITAMIN D3) (VITAMIN D3 PO) Take 5,000 Units by mouth daily. clopiDOGrel (PLAVIX) 75 mg tablet Take 1 Tab by mouth daily. ergocalciferol (VITAMIN D-2) 50,000 unit capsule Take 1 capsule by mouth every 7 days. Take an additional 5000 IU over the counter in addition. ergocalciferol (VITAMIN D-2) 50,000 unit capsule Take 1 capsule by mouth every 7 days. escitalopram oxalate (LEXAPRO) 20 mg tablet Take 20 mg by mouth daily. evolocumab (REPATHA PUSHTRONEX) INFUSOR CARTRIDGE Inject 420mg under the skin every 30 days. evolocumab 420 mg/3.5 mL Injt Inject 420 mg under the skin every 14 days. ferrous gluconate 324 mg (36 mg iron) tab Take 324 mg by mouth daily. folic acid (FOLVITE) 1 mg tablet Take 1 mg by mouth daily. HYDROcodone/acetaminophen (NORCO) 7.5/325 mg tablet Take 0.5-1 Tabs by mouth every 6 hours as needed for Pain (back pain) Iron Fum & P-FA-Vit B & C No.9 125 mg iron- 1 mg cap Take 1 capsule by mouth daily. (Patient taking differently: Take 1 capsule by mouth every 7 days.) isosorbide mononitrate SR (IMDUR) 30 mg tablet Take 15 mg by mouth daily as needed (chest pain or neck pain). loperamide (IMODIUM) 2 mg capsule Take 4 mg by mouth daily. losartan(+) (COZAAR) 100 mg tablet Take 1 Tab by mouth daily. pantoprazole DR (PROTONIX) 40 mg tablet Take 40 mg by mouth daily. potassium chloride (KDUR) 10 mEq tablet Take 20 mEq by mouth daily. in this encounter Plan of Treatment Not on fileas of this encounter Visit Diagnoses Diagnosis PAD (peripheral artery disease) (HCC) - Primary Peripheral vascular disease, unspecified Coronary artery disease involving [place] coronary artery with unstable angina pectoris, unspecified whether [place] or transplanted heart (HCC) Chronic liver disease Unspecified chronic liver disease without mention of alcohol S/P CABG (coronary artery bypass graft) Postsurgical aortocoronary bypass status Gastroesophageal reflux disease without esophagitis Esophageal reflux Other specified hypothyroidism Hx MRSA infection Personal history of Methicillin resistant Staphylococcus aureus Mixed hyperlipidemia Ischemic cardiomyopathy Other specified forms of chronic ischemic heart disease
--- OUTSIDE RECORDS SUMMARY | 2018-01-24 13:42 | External Medical Summary | Encounter Summary ---
:1960 Author Organization [facility] Address [address] [facility] [address] [place] [address] Phone Care Team Providers Name Role Phone Seferino Portillo MD Unavailable Pippa Neal Unavailable Unavailable Seferino Portillo MD Unavailable Tia Cunha MD Unavailable Pratibha Blandon LPN Unavailable Unavailable Carrie Ferrer RN Unavailable Unavailable Didi Duarte RN Registered Nurse Unavailable Tiffani Gil RN Unavailable Unavailable Vladimir Munson MD Primary Care Provider Encounter Details Date Type Department Care Team Description 12/13/2017 Pharmacy Visit [facility] [address] [place], [place] [id number] Social History Tobacco Use Types Packs/Day Years [...]
--- OUTSIDE RECORDS SUMMARY | 2018-01-24 13:43 | External Medical Summary | Encounter Summary ---
:1960 Author Organization [facility] Address [address] [place] [address] Phone Care Team Providers Name Role Phone Seferino Portillo MD Unavailable Pippa Neal Unavailable Unavailable Seferino Portillo MD Unavailable Tia Cunha MD Unavailable Pratibha Blandon LPN Unavailable Unavailable Carrie Ferrer RN Unavailable Unavailable Didi Duarte RN Registered Nurse Unavailable Tiffani Gil RN Unavailable Unavailable Vladimir Munson MD Primary Care Provider Reason for Visit Reason Comments Iron Deficiency 4 WK FUV Encounter Details Date Type Department Care Team Description 12/09/2017 [facility] Visit [facility], Ulcerative pancolitis (HCC) (Primary Dx); Physicians - Internal Alina Ordonez MD Ulcerative pancolitis without complication (HCC); Medicine [address] Functional diarrhea; [address] [place], [place] Vitamin D deficiency; [phone] Iron deficiency [place], [place] [phone] [address] [phone] Social History Tobacco Use Types Packs/Day Years [...] Vital Sign Reading Time Taken Blood Pressure 131/84 12/09/2017 2:14 PM TRACTOR TRAILER DRIVER Pulse 97 12/09/2017 2:14 PM TRACTOR TRAILER DRIVER Temperature - - Respiratory Rate 16 12/09/2017 2:14 PM TRACTOR TRAILER DRIVER Oxygen Saturation 100% 12/09/2017 2:14 PM TRACTOR TRAILER DRIVER Inhaled Oxygen Concentration - - Weight 74.4 kg (164 lb) 12/09/2017 2:14 PM TRACTOR TRAILER DRIVER Height 179.8 cm (5' 10.8") 12/09/2017 2:14 PM TRACTOR TRAILER DRIVER Body Mass Index 23 12/09/2017 2:14 PM TRACTOR TRAILER DRIVER in this encounter Functional Status Functional Status [...] Patient Instructions - Jessica Alvarenga RN - 12/09/2017 2:30 PM CSTDr. Cm is recommending: Please go to the lab after your visit today. A colonoscopy; you have been given prep instructions and the prep has been sent to your pharmacy. Vitamin D level in January or February. Continue Vitamin D and iron supplement. If you have any questions or concerns related to your care please contact AMISHA Lopez via [employer] (preference) or @ [phone]. Follow up in 1 month.in this encounter Progress Notes Kourtney-Alina Cm MD - 12/09/2017 2:30 PM CSTFormatting of this note may be different from the original. Reason for Visit: Follow-up on ulcerative colitis HPI: Mr. Juan Luis Urias presented today for [...] 1 dose for management of itching before hemodialysis which is once every 2 weeks. Previous HPI: Mr. Gandhi is a 57-year-old gentleman who presented to [facility] care for ulcerative colitis. He currently experiences irregular bowel movement. He has episodes of constipation and diarrhea. He was diagnosed with ulcerative pancolitis in 1996 and has been on Lialda since then. He also tried Entocort for a period of time , but due to the cost of the medication and poor insurance coverage, themedication was discontinued. He is currently taking 1-2 tablets of Lialda daily. He also takes 2 Imodium in the morning. He is up-to-date on colon cancer surveillance in the setting of long-standingulcerative pancolitis. He also suffers from primary sclerosing cholangitis which was diagnosed in 2003. However, he reports that he has had symptoms suggestive of chronic liver disease in year 1999. He sees one of our transplant double surface operator at [facility] for primary sclerosing cholangitis. He also suffers from coronary artery disease and peripheral vascular disease. He has hyperlipidemiarequiring Lipidopheresis. He had numerous stent placements in the coronary arteries and recently inthe peripheral arteries in the right lower leg. He also had 2 CABGs in 2009 and 2013. Here are his current active GI symptoms: - He may have up to 10 loose bowel movement throughout the day despite taking 2 Imodium in the morning. He sometimes takes Pepto-Bismol to help with this problem. - He complains of lower abdominal pain and cramping, mild to moderate in severity. -He experiences fecal urgency. -He sometimes experiences constipation. -He reports rectal bleeding and the stool is mixed with blood. He has had a colonoscopy and EGD in December 2016. The EGD was unremarkable and only showed a small hiatal hernia. The colonoscopy showed mild to moderate pancolitis. The 4-quadrant biopsies every 10 cm were negative for dysplasia, but it was positive for active chronic colitis. The terminal ileum was normal. History of the disease: He has never been hospitalized for ulcerative colitis. He is taking prednisone 10 mg daily off-and-on. He has been on prednisone for an extended period of time. 1996: He was diagnosed with ulcerative colitis. He was treated with Asacol and steroids at that time. 1999: He was diagnosed with primary sclerosing cholangitis on liver biopsy sometime between 2001 [id number]: He has been started on ursodiol at that time. 2013: Started on Remicade. He did not notice significant improvement with Remicade. Patient was discontinued when he went on disability. [id number]: He was treated for coronary artery disease and peripheral vascular disease with stent placement and CABG. 2011: He was started on Lialda and Entocort. However, he continued to have intermittent steroid therapy. January 2017: He has had a colonoscopy and EGD in December 2016. The EGD was unremarkable and only showed a small hiatal hernia. The colonoscopy showed mild to moderate pancolitis. The 4-quadrant biopsies every 10 cm were negative for dysplasia, but it was positive for active chronic colitis. The terminal ileum was normal. November 2017: He was diagnosed with iron and vitamin D deficiency. A DEXA scan was also performed which showed osteoporosis and he was started on Fosamax. PMH: Past Medical History: Diagnosis Date CAD (coronary artery disease) 02/18/2015 CAD (coronary artery disease), kiana coronary artery 02/18/2015 12/25/2014 - Stress Test: Abnormal MPI with evidence of infarct in the RCA territory. Preserved LV function and absence of stress induced myocardial cavity dilation. ([facility] 03/11/17- Cardiac catheterization, left main had an [...] Ischemic cardiomyopathy 05/13/2017 PAD (peripheral artery disease) (HCC) PE (pulmonary embolism) coumadin anticoagulation Primary sclerosing cholangitis PSC (primary sclerosing cholangitis) 02/18/2015 S/P CABG (coronary artery bypass graft) [facility] Type 2 diabetes mellitus (HCC) 02/18/2015 PSH: Past Surgical History: Procedure Laterality Date CORONARY ARTERY BYPASS GRAFT 08/20/2010 quad; with bypass angiography SURGERY 12/2010 right carotid endarterectomy CORONARY STENT PLACEMENT 01/06/2012 x1 PERCUTANEOUS CORONARY INTERVENTION N/A 03/20/2016 Percutaneous Coronary Intervention performed by Tino Durbin MD at [facility] PERCUTANEOUS CORONARY INTERVENTION N/A 03/11/2017 Possible Percutaneous Coronary Intervention performed by Isamar Avila MD at [facility] PERCUTANEOUS CORONARY INTERVENTION N/A 04/09/2017 Percutaneous Coronary Intervention to Saphenous Vein Graft, Right Coronary Artery performed by Isamar Avila MD at [facility] PERCUTANEOUS CORONARY INTERVENTION N/A 04/09/2017 Percutaneous Coronary Intervention performed by Isamar Avila MD at [facility] PERCUTANEOUS CORONARY INTERVENTION N/A 05/13/2017 Possible Percutaneous Coronary Intervention performed by Isamar Avila MD at [facility] PERCUTANEOUS CORONARY INTERVENTION N/A 09/29/2017 Possible Percutaneous Coronary Intervention performed by Isamar Avila MD at [facility] CARDIAC CATHERIZATION HEART CATHETERIZATION 2016 [place] (R) leg Current Medications: Current Outpatient Prescriptions: ALPRAZolam (XANAX) 0.25 mg tablet, Take 1 [...] mg cap, Take 1 capsule by mouth daily., Disp: 30 capsule, Rfl: 2 isosorbide mononitrate SR (IMDUR) 30 mg tablet, Take 15 mg by mouth daily as needed (chest painor neck pain)., Disp: , Rfl: loperamide (IMODIUM) 2 mg capsule, Take 4 mg by mouth daily., Disp: , Rfl: losartan(+) (COZAAR) 100 mg tablet, Take 1 Tab by mouth daily., Disp: 90 Tab, Rfl: 3 mesalamine (LIALDA) 1.2 gram tablet, Take 4 tablets by mouth daily with breakfast for 30 days. Swallow whole; do not break, chew or crush. Administer with a meal., Disp: 120 tablet, Rfl: [address] (PROTONIX) 40 mg tablet, Take 40 mg by mouth daily., Disp: , Rfl: potassium chloride (KDUR) 10 mEq tablet, Take 20 mEq by mouth daily., Disp : , Rfl: Current Facility-Administered Medications: heparin (porcine) 30,000 units/30 mL infusion (SYR) [facility] 2, 000 Units/hr, Apheresis, TITRATE, Seferino Portillo MD, Last Rate: 2 mL/hr at 12/09/17 0758, 2,000 Units/hr at 12/09/17 0758 Allergies: Allergies Allergen Reactions Garlic RASH and [...] ROS: Review of Systems Constitutional: Positive for appetite change and fatigue. HENT: Negative. Eyes: Positive for itching. Respiratory: Positive for cough, chest tightness and shortness of breath. Cardiovascular: Positive for leg swelling. Gastrointestinal: Positive for nausea. Endocrine: Negative. Genitourinary: Negative. Musculoskeletal: Positive for neck pain. Skin: Negative. Allergic/Immunologic: Negative. Neurological: Positive for speech difficulty, weakness and numbness. Psychiatric/Behavioral: Positive for confusion. All other systems reviewed and are negative. PE: Vitals: 12/09/17 1414 BP: 131/84 Pulse: 97 Resp: 16 SpO2: 100% 74.4 kg (164 lb) Body mass index is 23 kg/m. Physical Exam Constitutional: Pt. is oriented [...] Normal range of motion. He exhibits no tenderness or deformity. 2+ bilateral lowerextremity edema. Neurological: Pt. is alert and oriented to person, place, and time. Gait normal. Skin: Skin is warm and dry. No rash noted. No erythema. Psychiatric: Affect and judgment normal. Assessment: - Mild to moderate, active, ulcerative pancolitis since 1996: He will increase the dose of Lialda to4 tablets a day. He will sign up for patient assistance program at [facility] to receive the medication. He will be prescribed with Uceris 9 g daily for 3 months. -Colon cancer screening in the setting of ulcerative pancolitis since 1996: He will be scheduled to have a colonoscopy with random [facility]quadrant [facility]. -Primary sclerosing cholangitis: He is seeing one of our transplant double surface operator here at [facility]. -Anemia: Iron panel, folic acid, vitamin B12 were checked. Those were within normal limits except for iron which was low. He is currently on Integra plus for iron deficiency anemia. -Vitamin D deficiency. Calvin on therapeutic dose and maintenance dose of vitamin D. The vitamin D level will be checked in January or February 2018. -Bone health: 1. DEXA scan was performed today. He had rib fracture. He is still taking steroids for itching and for flareups of ulcerative colitis intermittently. He is currently off steroids. The results of the DEXA scan is pending as a test was performed today. 2. Vitamin D deficiency: He is being treated for that. He will have a repeat vitamin D level in January or February. 3. He will be taking 1500 mg of calcium on a daily basis. 4. Iron deficiency anemia: On Integra plus daily. -Health maintenance: 1. His vaccination records need to be obtained. He is up-to-date on pneumonia vaccine and influenza vaccination. He will bring us a copy of his vaccination records. 2. Colorectal cancer screening and surveillance: He is up-to-date. He is due for a colonoscopy in December 2017. 3. He will undergo a colonoscopy for surveillance of colorectal cancer in the setting of long-standing ulcerative colitis. I will communicate with his double surface operator to see if he is due for an upper endoscopy for esophageal varices surveillance. 4. He will be started on biologic agents for management of mild to moderate, active ulcerative colitis. He chose Humira. The risks, benefits and alternatives to therapy with biologic agents were discussed with him today. 5. QuantiFERON Gold and hepatitis panel will be checked. -Follow-up in 4 weeks. Plan: As above Alina Torres MD 12/09/17 in this encounter Plan of Treatment Scheduled Tests Name Priority Associated Diagnoses Order Schedule T SPOT TB Routine Ulcerative pancolitis (HCC) Expected: 12/09/2017 ( Approximate), Expires: 12/09/2018 as of this encounter Results HEPATITIS B SURFACE AB (12/09/2017 3:40 PM) Component Value Ref Range Anti HBs <2.5 mIU/ml Comment: Hepatitis B Surface Antibody Reference Ranges >12.0 Positive 8.0-12.0Equivocal <8.0Negative Specimen Performing Laboratory Blood MAIN LAB [address] [place] [id number] HEPATITIS B SURFACE AG (12/09/2017 3:40 PM) Component Value Ref Range HBsAg NEG Specimen Performing Laboratory Blood MAIN LAB [address] [place] [address] HEPATITIS B CORE AB TOT (IGG+IGM) (12/09/2017 3:40 PM) Component Value Ref Range Anti HBc Total NEG Specimen Performing Laboratory Blood MAIN LAB [address] [place] [address] in this encounter Visit Diagnoses Diagnosis Ulcerative pancolitis (HCC) - Primary Indiahoma ulcerative (chronic) colitis Ulcerative pancolitis without complication (HCC) Functional diarrhea Vitamin D deficiency Unspecified vitamin D deficiency Iron deficiency Iron deficiency anemia, unspecified
--- OUTSIDE RECORDS SUMMARY | 2018-01-24 13:43 | External Medical Summary | Encounter Summary ---
:[address] [facility] Address [address] [place] [address] Phone Care Team Providers Name Role Phone Seferino Portillo MD Unavailable Pippa Neal Unavailable Unavailable Seferino Portillo MD Unavailable Tia Cunha MD Unavailable Pratibha Blandon LPN Unavailable Unavailable Carrie Ferrer RN Unavailable Unavailable Didi Duarte RN Registered Nurse Unavailable Tiffani Gil RN Unavailable Unavailable Vladimir Munson MD Primary Care Provider Encounter Details Date Type Department Care Team Description 12/09/2017 Pharmacy Visit [facility] [address] [place] [id number] Social History Tobacco Use Types Packs/Day Years [...]
--- OUTSIDE RECORDS SUMMARY | 2018-01-24 13:43 | External Medical Summary | Encounter Summary ---
:1960 Author Organization [facility] Address [address] [place] [address] Phone Care Team Providers Name Role Phone Seferino Portillo MD Unavailable Pippa Neal Unavailable Unavailable Seferino Portillo MD Unavailable Tia Cunha MD Unavailable Pratibha Blandon LPN Unavailable Unavailable Carrie Ferrer RN Unavailable Unavailable Didi Duarte RN Registered Nurse Unavailable Tiffani Gil RN Unavailable Unavailable Vladimir Munson MD Primary Care Provider Encounter Details Date Type Department Care Team Description 12/09/2017 Prep for Case [facility] Physicians - Internal Alina Ordonez MD Medicine [address] [place] [address] [place], [place] [phone] [phone] Social History Tobacco Use Types Packs/Day Years [...]
--- OUTSIDE RECORDS SUMMARY | 2018-01-24 13:43 | External Medical Summary | Encounter Summary ---
:1960 Author Organization [facility] Address [address] [place] [address] Phone Care Team Providers Name Role Phone [...] Date Type Department Care Team Description 12/09/2017 Nurse Only [facility] Familial hypercholesterolemia Physicians - Clinical Pharmacology GROUND FLOOR [address] [place] [address] Social History Tobacco Use Types [...] Vital Sign Reading Time Taken Blood Pressure 112/72 12/09/2017 10:21 AM CUSTOMER SERVICER Pulse 66 12/09/2017 10:21 AM CUSTOMER SERVICER Temperature 36.3 C (97.3 F) 12/09/2017 10:21 AM CUSTOMER SERVICER Respiratory Rate 13 12/09/2017 10:21 AM CUSTOMER SERVICER Oxygen Saturation - - Inhaled Oxygen Concentration - - Weight 74.3 kg (163 lb 12.8 oz) 12/09/2017 10:21 AM CUSTOMER SERVICER Height - - Body Mass Index 24.19 12/09/2017 10:21 AM CUSTOMER SERVICER in this encounter Functional Status Functional Status [...] encounter Progress Notes Seferino Portillo MD - 12/09/2017 8:00 AM CSTPresent throughout patients therapy.Conchita Cerda RN - 12/09/2017 8:00 AM CSTPatient to clinic for Lipoprotein apheresis treatment. Cleaned bilateral AC's with CHLOROPREP swabs and allowed to air dry. Treatment started with no problems at 0757. Patient resting in recliner.Pt is extremely itchy and restless throughout the treatment. Monitoring closely throughout treatment. See doc flow sheet. [...] Date Dose Rate Site diphenhydrAMINE (BENADRYL) injection Given 12/09/2017 08:16 CUSTOMER SERVICER 25 mg 25 mg 25 mg, Intravenous, ONCE, 1 dose, Ling 12/09/17 at 0830 heparin (porcine) 30,000 Given - New Bag 12/09/2017 07:58 2,000 Units/hr 2 mL/hr units/30 mL infusion (SYR) CUSTOMER SERVICER (KANEKA APHERESIS) 2,000 Units/hr (2 mL/hr), at 2 mL/hr, Apheresis, TITRATE DIRECTED , Starting Lign 12/09/17 at 0815, Until Ling 12/09/17 at 2014, Initiate heparin infusion at 2000 units/hr and titrate per protocol NOTE: This is a HIGH ALERT Medication. heparin (porcine) bolus for continuous inf Given 12/09/2017 07:58 CUSTOMER SERVICER 2,000 Units (SYR) (KANEKA) 2,000 Units 2,000 Units, Apheresis, ONCE, 1 dose, Ling 12/09/17 at 0815, NOTE: This is a HIGH ALERT Medication in this encounter
--- OUTSIDE RECORDS SUMMARY | 2018-01-24 13:43 | External Medical Summary | Encounter Summary ---
:1960 Author Organization [facility] Address [address] [facility] [address] [place] [address] Phone Care Team Providers Name Role Phone Seferino Portillo MD Unavailable Pippa Neal Unavailable Unavailable Seferino Portillo MD Unavailable Tia Cunha MD Unavailable Pratibha Blandon LPN Unavailable Unavailable Carrie Ferrer RN Unavailable Unavailable Didi Duarte RN Registered Nurse Unavailable Tiffani Gil RN Unavailable Unavailable Vladimir Munson MD Primary Care Provider Encounter Details Date Type Department Care Team Description 12/09/2017 Pharmacy Visit [facility] [address] [place], [place] [phone] Social History Tobacco Use Types Packs/Day Years [...]
--- OUTSIDE RECORDS SUMMARY | 2018-01-24 13:43 | External Medical Summary | Encounter Summary ---
:1960 Author Organization [facility] Address [address] [place] [address] Phone Care Team Providers Name Role Phone Seferino Portillo MD Unavailable Pippa Neal Unavailable Unavailable Seferino Portillo MD Unavailable Tia Cunha MD Unavailable Pratibha Blandon LPN Unavailable Unavailable Carrie Ferrer RN Unavailable Unavailable Didi Duarte RN Registered Nurse Unavailable Tiffani Gil RN Unavailable Unavailable Vladimir Munson MD Primary Care Provider Encounter Details Date Type Department Care Team Description 12/09/2017 Hospital Encounter [facility] Ulcerative (chronic) [address] , Alina Ordonez MD pancolitis without [address] complications (HCC) [place], [place] [address] [address] [place], [place] [phone] [address] [phone] Social History Tobacco Use Types Packs/Day Years [...] Refills Start Date End Date adalimumab(+) (HUMIRA Inject 0.8 mL under 2 each 5 12/09/2017 PEN) 40 mg/0.8 mL the skin every 14 injection penIndications: days. ULCERATIVE COLITIS ALPRAZolam (XANAX) 0.25 Take 1 tablet by 30 tablet 0 10/28/2017 mg tablet mouth as Needed for Anxiety (TAKE ONE TABLET PRIOR TO 30 MINUTES PRIOR TO APHERESIS TREATMENT.). aspirin EC 81 mg tablet Take 1 Tab by mouth 90 Tab 3 08/25/2016 daily. Take with food. budesonide (UCERIS) 9 mg Take 1 tablet by 30 tablet 2 11/11/2017 ER tabletIndications: mouth daily. Vitamin D deficiency, Ulcerative colitis with complication, unspecified location ([facility]) carvedilol (COREG) 6.25 Take 0.5 Tabs by 180 Tab 3 04/11/2017 mg tabletIndications: mouth twice daily Coronary artery disease with meals. Take involving torres martinez coronary with food. artery of torres martinez heart with angina pectoris ([facility]) chlorthalidone (HYGROTON) Take 25 mg by mouth 25 mg tablet daily. CHOLECALCIFEROL (VITAMIN Take 5,000 Units by D3) (VITAMIN D3 PO) mouth daily. clopiDOGrel (PLAVIX) 75 Take 1 Tab by mouth 90 Tab 3 04/11/2017 mg tabletIndications: daily. Coronary artery disease involving torres martinez coronary artery of torres martinez heart with unstable angina pectoris ([facility]), Chronic liver disease, S/P CABG (coronary artery bypass graft), PAD (peripheral artery disease) ([facility]), Gastroesophageal reflux disease without esophagitis, Essential hypertension with goal blood pressure less than 130/85, Other hyperlipidemia, Accelerating angina ([facility]), Coronary artery disease involving torres martinez coronary artery of torres martinez heart with angina pectoris ([facility]) ergocalciferol (VITAMIN Take 1 capsule by 4 [...] gluconate 324 mg Take 324 mg by (36 mg iron) tab mouth daily. folic acid (FOLVITE) 1 mg Take [...] mg tabletIndications: daily. 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 potassium chloride (KDUR) Take 20 mEq by 10 mEq tablet mouth daily. adalimumab(+) (HUMIRA 4 injections on Day 6 each 0 12/09/2017 12/15/2017 PEN) 40 mg/0.8 mL 1 then 2 injections injection penIndications: in 2 weeks. ULCERATIVE COLITIS mesalamine (LIALDA) 1.2 Take 4 tablets by 120 tablet 0 11/11/20172017 gram tablet mouth daily with breakfast for 30 days. Swallow whole; do not break, chew or crush. Administer with a meal. as of this encounter Plan of Treatment Not on fileas of this encounter Results HEPATITIS B SURFACE AB (12/09/2017 3:40 PM) Component Value Ref Range Anti HBs <2.5 mIU/ml Comment: Hepatitis B Surface Antibody Reference Ranges >12.0 Positive 8.0-12.0Equivocal <8.0Negative Specimen Performing Laboratory Blood MAIN LAB [address] [place] [address] HEPATITIS B SURFACE AG (12/09/2017 3:40 PM) Component Value Ref Range HBsAg NEG Specimen Performing Laboratory Blood MAIN LAB [address] [place] [address] HEPATITIS B CORE AB TOT (IGG+IGM) (12/09/2017 3:40 PM) Component Value Ref Range Anti HBc Total NEG Specimen Performing Laboratory Blood MAIN LAB [address] [place] [address] in this encounter Visit Diagnoses Diagnosis Ulcerative pancolitis (HCC) [place] ulcerative (chronic) colitis Admitting Diagnoses Diagnosis Ulcerative (chronic) pancolitis without complications (HCC) Ulcerative (chronic) pancolitis without complications
--- OUTSIDE RECORDS SUMMARY | 2018-01-24 13:44 | External Medical Summary | Encounter Summary ---
:1960 Author Organization [facility] Address [address] [facility] [address] [place] [address] Phone Care Team Providers Name Role Phone Seferino Portillo MD Unavailable Pippa Neal Unavailable Unavailable Seferino Portillo MD Unavailable Tia Cunha MD Unavailable Pratibha Blandon LPN Unavailable Unavailable Carrie Ferrer RN Unavailable Unavailable Didi Duarte RN Registered Nurse Unavailable Tiffani Gil RN Unavailable Unavailable Vladimir Munson MD Primary Care Provider Encounter Details Date Type Department Care Team Description 11/21/2017 Pharmacy Visit [facility] [address] [place], [place] [phone] Social History Tobacco Use Types Packs/Day Years [...]
--- OUTSIDE RECORDS SUMMARY | 2018-01-24 13:44 | External Medical Summary | Encounter Summary ---
:1960 Author Organization [facility] Address [address] [place] [address] Phone Care Team Providers Name Role Phone Seferino Portillo MD Unavailable Pippa Neal Unavailable Unavailable Seferino Portillo MD Unavailable Tia Cunha MD Unavailable Pratibha Blandon LPN Unavailable Unavailable Carrie Ferrer RN Unavailable Unavailable Didi Duarte RN Registered Nurse Unavailable Tiffani Gil RN Unavailable Unavailable Vladimir Munson MD Primary Care Provider Reason for Referral Radiology Services Status Reason Specialty Diagnoses / Referred By Referred To Procedures Contact Contact No Auth Needed Radiology Diagnoses Vitamin D deficiency Ulcerative colitis with complication, unspecified location (HCC) [facility] systemic steroid user History of fracture Julia Torres Procedures BONE DENSITY SPINE/HIP Alina Ordonez MD Radiology [address] [place] [address] Phone: Radiology Services Status Reason Specialty Diagnoses / Referred By Referred To Procedures Contact Contact No Auth Needed Radiology Diagnoses Vitamin D deficiency Ulcerative colitis with complication, unspecified location (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 History of fracture Kourtney-Aslinia, Kumw Gen Procedures BONE DENSITY SPINE/HIP Alina Ordonez MD Radiology [address] [place] [address] Phone: Reason for Visit Radiology Services Status Reason Specialty Diagnoses / Referred By Referred To Procedures Contact Contact No Auth Needed Radiology Diagnoses Vitamin D deficiency Ulcerative colitis with complication, unspecified location (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 History of fracture Julia Torres Procedures BONE DENSITY SPINE/HIP Alina Ordonez MD Radiology [address] [place] [address] Phone: Encounter Details Date Type Department Care Team Description 12/09/2017 Hospital Encounter [facility] Alina Ordonez MD Radiology [address] [place] [address] [phone] Social History Tobacco Use Types Packs/Day Years [...] deficiency, Ulcerative colitis with complication, unspecified location ([facility]) carvedilol (COREG) 6.25 Take 0.5 Tabs by 180 Tab 3 04/11/2017 mg tabletIndications: mouth twice daily Coronary artery disease with meals. Take involving [place] coronary with food. artery of [place] heart with angina pectoris ([facility]) chlorthalidone (HYGROTON) Take 25 mg by mouth 25 mg tablet daily. CHOLECALCIFEROL (VITAMIN Take 5,000 Units by D3) (VITAMIN D3 PO) mouth daily. clopiDOGrel (PLAVIX) 75 Take 1 Tab by mouth 90 Tab 3 04/11/2017 mg tabletIndications: daily. Coronary artery disease involving [place] coronary artery of [place] heart with unstable angina pectoris ([facility]), Chronic liver disease, S/P CABG (coronary artery bypass graft), PAD (peripheral artery disease) ([facility]), Gastroesophageal reflux disease without esophagitis, Essential hypertension with goal blood pressure less than 130/85, Other hyperlipidemia, Accelerating angina ([facility]), Coronary artery disease involving [place] coronary artery of [place] heart with angina pectoris ([facility]) ergocalciferol (VITAMIN Take 1 capsule [...] mg tabletIndications: daily. Coronary artery disease involving [place] coronary artery of [place] heart with angina pectoris (HCC) pantoprazole DR [...] chew or crush. Administer with a meal. Sodium,Potassium,&Mag Take 354 mL (1 kit) 354 mL 0 12/09/20172017 Sulfates (SUPREP BOWEL by mouth as PREP KIT) 17.5-3.13-1.6 directed once for 1 gram solrIndications: dose. Ulcerative pancolitis (HCC) as of this encounter Plan of Treatment Not on fileas of this encounter Results BONE DENSITY SPINE/HIP (12/09/2017 12:32 PM) Specimen [...] Interface, Radiant Results - 12/09/2017 12:51 PM PAINTER ASSISTANT DEXA BONE MINERAL DENSITY SCAN: CLINICAL HISTORY: [...] Sung Tamayo D.O. on 12/09/2017 12:46 PM. 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
--- OUTSIDE RECORDS SUMMARY | 2018-01-24 13:44 | External Medical Summary | Encounter Summary ---
:1960 Author Organization [facility] Address [address] [place] [address] Phone Care Team Providers Name Role Phone Seferino Portillo MD Unavailable Pippa Neal Unavailable Unavailable Seferino Portillo MD Unavailable Tia Cunha MD Unavailable Pratibha Blandon LPN Unavailable Unavailable Carrie Ferrer RN Unavailable Unavailable Didi Duarte RN Registered Nurse Unavailable Tiffani Gil RN Unavailable Unavailable Vladimir Munson MD Primary Care Provider Encounter Details Date Type Department Care Team Description 11/22/2017 Orders Only [facility] Seferino Portillo MD Physicians - Clinical [address] [facility] Pharmacology [address] [place] [address] [address] [facility] [address] [phone] [place] [address] Social History Tobacco Use Types [...] Not on fileas of this encounter Results HDLAB RESULTS (10/28/2017) Component Value Ref Range Cholesterol 337 LDL [...] Apolipoprotein E & Alleles Apolipoprotein E Specimen UDC4C28*2*3 OCR0K05*17* Factor 5 Leiden Prothrombin Gene Analysis Insulin [...] T3 (Total) Testosterone, Serum Specimen Performing Laboratory [facility] [address] [place] [address], [address] [place] [address] HDLAB RESULTS (10/28/2017) Component Value Ref Range Cholesterol 456 LDL 388 HDL 12 Triglycerides 282 Non HDL Cholesterol Apolipoprotein B 100 152 LDL-P >2892 Small Density LDL 147 SDLDL % 38 Apoliprotein A1 47 HDL-P <18.1 HDL2 -36 APO B/A1 RATIO 3.23 LP(A) Mass 28 LP(A) Cholesterol Myeloperoxidase AB 479 LP PLA2 (PLAC-R) CRP, High Sensitivity 30.0 Fibrinogen 749 B Type Natriuretic Peptide 1,786 [employer]inWorks (Urine) Apolipoprotein E & Alleles Apolipoprotein E Specimen TIP3I94*2*3 XRB1Z77*17* Factor 5 Leiden Prothrombin Gene Analysis Insulin FREE FATTY ACID 0.58 Glucose 122 Hemoglobin A1C 4.7 ESTIMATED AVERAGE GLUCOSE 88 Vitamin D(25-OH)Total 42 Uric Acid 4.8 TSH 2.62 Homocysteine 8 Cystatin C, S eGFR Non 54 eGFR 57 Creatinine 1.1 HS-OMEGA-3 INDEX 3.51 OMEGA-3 TOTAL ALPHA-LINOLENIC (ALA) DOCOSAPENTAENOIC (DPA) EICOSAPENTAENOIC (EPA) DOCOSAHEXAENOIC (DHA) OMEGA-6 TOTAL ARACHIDONIC (AA) LINOLEIC (LA) CIS-MONOUNSATURATED TOTAL SATURATED TOTAL TRANS TOTAL Sodium 139 Potassium 3.2 Chloride 102 CO2 24 Calcium 8.1 Magnesium 1.80 ALT (SGPT) 85 AST (SGOT) 105 Acid Phos,Prostatic Blood Urea Nitrogen 17 Total Bilirubin 8.4 Prostatic Specific Antigen Albumin 2.8 Total Protein 5.3 Creatine Kinase 25 TSH 2.62 T4 (Total) T4-Free 0.76 T3 (Total) 2.3 Testosterone, Serum White Blood Cells RBC Hemoglobin Hematocrit MCV MCH MCHC RDW Platelet Count Specimen Performing Laboratory [facility] [address] [place] [address], [address] [place] [address] in this encounter Visit Diagnoses Not on filein this encounter
--- OUTSIDE RECORDS SUMMARY | 2018-01-24 13:44 | External Medical Summary | Encounter Summary ---
:1960 Author Organization [facility] Address [address] [place] [address] Phone Care Team Providers Name Role Phone [...] Details Date Type Department Care Team Description 11/25/2017 Nurse Only [facility] Pure hypercholesterolemia; Physicians - Clinical Elevated Lp(a) Pharmacology GROUND FLOOR [address] [place] [address] Social History Tobacco Use Types [...] Vital Sign Reading Time Taken Blood Pressure 133/73 11/25/2017 10:31 AM PAYROLL BENEFITS CLERK Pulse 51 11/25/2017 10:31 AM PAYROLL BENEFITS CLERK Temperature 36.3 C (97.3 F) 11/25/2017 10:31 AM PAYROLL BENEFITS CLERK Respiratory Rate 18 11/25/2017 10:31 AM PAYROLL BENEFITS CLERK Oxygen Saturation - - Inhaled Oxygen Concentration - - Weight 71.6 kg (157 lb 12.8 oz) 11/25/2017 10:31 AM PAYROLL BENEFITS CLERK Height - - Body Mass Index 23.3 11/25/2017 10:31 AM PAYROLL BENEFITS CLERK in this encounter Functional Status Functional Status [...] encounter Progress Notes Seferino Portillo MD - 11/25/2017 8:00 AM CSTPresent throughout patients therapy.Lindsay Perdue RN - 11/25/2017 8:00 AM CSTPatient to clinic for Lipoprotein apheresis treatment. Cleaned bilateral AC's with chloraprep swabs and allowed to air dry. Treatment started with no problems. Patient resting in recliner. Will monitor closely throughout treatment. See doc flow sheet. Lindsay Perdue RN Patient tolerated treatment well. 100% rinse back returned to patient. Pressures held until no signsof bleeding noted. Pressures held with fabric band aids, Quik clot, 4x4 gauze, and secured with Coban for pressure dressing. Patient will return to clinic in 2 weeks. See doc flow sheet. Lindsay Perdue RN in this encounter Plan of Treatment Not on fileas of this encounter Visit Diagnoses Diagnosis Pure hypercholesterolemia Elevated Lp(a) Other disorders of lipoid metabolism Administered Medications Inactive Administered Medications - up to 3 most recent administrations Medication Order MAR Action Action Date Dose Rate Site diphenhydrAMINE (BENADRYL) injection Given 11/25/2017 07:55 PAYROLL BENEFITS CLERK 25 mg 25 mg 25 mg, Intravenous, ONCE, 1 dose, Ling 11/25/17 at 0800 heparin (porcine) 30,000 Given - New 11/25/2017 07:53 1,500 Units/hr 1.5 mL/ hr units/30 mL infusion (SYR) Bag PAYROLL BENEFITS CLERK (KANEKA APHERESIS) 1,500 Units/hr (1.5 mL/hr), at 1.5 mL/hr, Apheresis, TITRATE DIRECTED , Starting Ling 11/25/17 at 0800, Until Ling 11/25/17 at 1959, Initiate heparin infusion at 1500 units/hr and titrate per protocol NOTE: This is a HIGH ALERT Medication. heparin (porcine) bolus for continuous inf Given 11/25/2017 07:53 PAYROLL BENEFITS CLERK 1,500 Units (SYR) (KANEKA) 1,500 Units 1,500 Units, Apheresis, ONCE, 1 dose, Ling 11/25/17 at 0800, NOTE: This is a HIGH ALERT Medication in this encounter
--- OUTSIDE RECORDS SUMMARY | 2018-01-24 13:44 | External Medical Summary | Encounter Summary ---
:1960 Author Organization [facility] Address [address] [place] [address] Phone Care Team Providers Name Role Phone Seferino Portillo MD Unavailable Pippa Neal Unavailable Unavailable Seferino Portillo MD Unavailable Tia Cunha MD Unavailable Pratibha Blandon LPN Unavailable Unavailable Carrie Ferrer RN Unavailable Unavailable Didi Duarte RN Registered Nurse Unavailable Tiffani Gil RN Unavailable Unavailable Vladimir Munson MD Primary Care Provider Encounter Details Date Type Department Care Team Description 11/19/2017 Orders Only [facility] Brian, Vitamin D deficiency Physicians - Internal Alina Ordonez MD (Primary Dx) Medicine [address] [place], [place] [address] [facility] MED [address] OFF[address] [phone] [place] [address] Social History Tobacco Use Types [...] as of this encounter Plan of Treatment Scheduled Tests Name Priority Associated Diagnoses Order Schedule 25-OH VITAMIN D (D2 + D3) Routine Vitamin D deficiency Expected: 02/17/2018 (Approximate), Expires: 11/19/2018 as of this encounter Visit Diagnoses Diagnosis Vitamin D deficiency - Primary Unspecified vitamin D deficiency
--- OUTSIDE RECORDS SUMMARY | 2018-01-24 13:45 | External Medical Summary | Encounter Summary ---
:1960 Author Organization [facility] Address [address] [place] [address] Phone Care Team Providers Name Role Phone Seferino Portillo MD Unavailable Pippa Neal Unavailable Unavailable Seferino Portillo MD Unavailable Tia Cunha MD Unavailable Pratibha Blandon LPN Unavailable Unavailable Carrie Ferrer RN Unavailable Unavailable Didi Duarte RN Registered Nurse Unavailable Tiffani Gil RN Unavailable Unavailable Vladimir Munson MD Primary Care Provider Encounter Details Date Type Department Care Team Description 11/11/2017 Hospital Encounter [facility] Kourtney-Aslinia, Iron deficiency [address] [facility] Alina Ordonez MD [address] [place] [address] [phone] Social History Tobacco Use Types Packs/Day Years [...] Sig. Disp. Refills Start Date End Date ALPRAZolam (XANAX) 0.25 Take 1 tablet by [...] deficiency, Ulcerative colitis with complication, unspecified location ([facility]) carvedilol (COREG) 6.25 Take 0.5 Tabs by 180 Tab 3 04/11/2017 mg tabletIndications: mouth twice daily Coronary artery disease with meals. Take involving [place] coronary with food. artery of [place] heart with angina pectoris ([facility]) chlorthalidone (HYGROTON) Take 25 mg by mouth 25 mg tablet daily. CHOLECALCIFEROL (VITAMIN Take 5,000 Units by D3) (VITAMIN D3 PO) mouth daily. clopiDOGrel (PLAVIX) 75 Take 1 Tab by mouth 90 Tab 3 04/11/2017 mg tabletIndications: daily. Coronary artery disease involving [place] coronary artery of one[place] heart with unstable angina pectoris ([facility]), Chronic liver disease, S/P CABG (coronary artery bypass graft), PAD (peripheral artery disease) ([facility]), Gastroesophageal reflux disease without esophagitis, Essential hypertension with goal blood pressure less than 130/85, Other hyperlipidemia, Accelerating angina ([facility]), Coronary artery disease involving [place] coronary artery of [place] heart with angina pectoris ([facility]) ergocalciferol (VITAMIN Take 1 capsule by D-2) [...] hours as needed for Pain (back pain) isosorbide mononitrate SR Take 15 mg by mouth (IMDUR) 30 mg tablet daily as needed (chest pain or neck pain). loperamide (IMODIUM) 2 mg Take 4 mg by mouth capsule daily. losartan(+) (COZAAR) 100 Take 1 Tab by mouth 90 Tab 3 03/12/2017 mg tabletIndications: daily. Coronary artery disease involving one[place] coronary artery of [place] heart with angina pectoris (HCC) pantoprazole DR Take 40 mg by mouth (PROTONIX) 40 mg tablet daily. potassium chloride (KDUR) Take 20 mEq by 10 mEq tablet mouth daily. mesalamine (LIALDA) 1.2 Take 4 tablets by 120 tablet 0 11/11/20172017 gram tablet mouth daily with breakfast for 30 days. Swallow whole; do not break, chew or crush. Administer with a meal. as of this encounter Plan of Treatment Not on fileas of this encounter Results IRON + BINDING CAPACITY + %SAT (11/11/2017 2:32 PM) Component Value Ref Range Iron 32 (L) 50 - 185 MCG/DL Iron Binding-TIBC 410 (H) 270 - 380 MCG/DL % Saturation 8 (L) 28 - 42 % Specimen Performing Laboratory Blood MAIN [facility] [address] [place] [address] FOLATE, SERUM (11/11/2017 2:32 PM) Component Value Ref Range Serum Folate 11.3Comment: NOTE NEW REFERENCE RANGES >3.9 NG/ML Specimen Performing Laboratory Blood MAIN [facility] [address] [place] [address] 25-OH VITAMIN D (D2 + D3) (11/11/2017 2:32 PM) Component Value Ref Range Vitamin D(25-OH)Total 20.7 (L) 30 - 80 NG/ML Specimen Performing Laboratory [facility] [address] [place] [address] VITAMIN B12 (11/11/2017 2:32 PM) Component Value Ref Range Vitamin B12 >1500 (H) 180 - 914 PG/ML Specimen Performing Laboratory [facility] MAIN [facility] [address] [place] [address] in this encounter Visit Diagnoses Diagnosis Iron deficiency Iron deficiency anemia, unspecified Vitamin D deficiency Unspecified vitamin D deficiency Ulcerative colitis with complication, unspecified location (HCC) Admitting Diagnoses Diagnosis Iron deficiency Vitamin D deficiency, unspecified Ulcerative colitis, unspecified with unspecified complications (HCC) Ulcerative colitis, unspecified with unspecified complications
--- OUTSIDE RECORDS SUMMARY | 2018-01-24 13:45 | External Medical Summary | Encounter Summary ---
:1960 Author Organization [facility] Address [address] [facility] [address] [place] [address] Phone Care Team Providers Name Role Phone Seferino Portillo MD Unavailable Pippa Neal Unavailable Unavailable Seferino Portillo MD Unavailable Tia Cunha MD Unavailable Pratibha Blandon LPN Unavailable Unavailable Carrie Ferrer RN Unavailable Unavailable Didi Duarte RN Registered Nurse Unavailable Tiffani Gil RN Unavailable Unavailable Vladimir Munson MD Primary Care Provider Encounter Details Date Type Department Care Team Description 11/11/[address] [facility] [address] [place], [place] [id number] Social History Tobacco Use Types Packs/Day Years [...]
--- OUTSIDE RECORDS SUMMARY | 2018-01-24 13:45 | External Medical Summary | Encounter Summary ---
:1960 Author Organization [facility] Address [address] [place] [address] Phone Care Team Providers Name Role Phone Seferino Portillo MD Unavailable Pippa Neal Unavailable Unavailable Seferino Portillo MD Unavailable Tia Cunha MD Unavailable Pratibha Blandon LPN Unavailable Unavailable Carrie Ferrer RN Unavailable Unavailable Didi Duarte RN Registered Nurse Unavailable Tiffani Gil RN Unavailable Unavailable Vladimir Munson MD Primary Care Provider Reason for Visit Reason Comments Prior Authorization [facility] Encounter Details Date Type Department Care Team Description 11/16/2017 Telephone [facility] Brian, Prior Authorization Physicians - Internal Alina Ordonez MD ([facility]) Medicine [address] [place] [address] [facility] MED [id number] OFFICE [address] [phone] [place] [address] Social History Tobacco Use Types [...] this encounter Miscellaneous Notes Telephone Encounter - Alexia Finn - 11/16/2017 3:17 PM CSTPA submitted for Mom[employer] ZHAO APPROVED CaseId:[id number];Product Name:FCR: Non-Formulary Medication [place]; Status:Approved;Coverage Start Date:11/16/2017;Coverage End Date:11/16/2018; in this encounter Plan of Treatment Not on fileas of this encounter Visit Diagnoses Not on filein this encounter
--- OUTSIDE RECORDS SUMMARY | 2018-01-24 13:45 | External Medical Summary | Encounter Summary ---
:1960 Author Organization [facility] Address [address] [facility] [address] [place] [address] Phone Care Team Providers Name Role Phone Seferino Portillo MD Unavailable Pippa Neal Unavailable Unavailable Seferino Portillo MD Unavailable Tia Cunha MD Unavailable Pratibha Blandon LPN Unavailable Unavailable Carrie Ferrer RN Unavailable Unavailable Didi Duarte RN Registered Nurse Unavailable Tiffani Gil RN Unavailable Unavailable Vladimir Munson MD Primary Care Provider Encounter Details Date Type Department Care Team Description 11/12/2017 Pharmacy Visit [facility] [address] [place], [place] [id number] Social History Tobacco Use Types Packs/Day Years [...]
--- OUTSIDE RECORDS SUMMARY | 2018-01-24 13:45 | External Medical Summary | Encounter Summary ---
:1960 Author Organization [facility] Address [address] [place] [address] Phone Care Team Providers Name Role Phone Seferino Portillo MD Unavailable Pippa Neal Unavailable Unavailable Seferino Portillo MD Unavailable Tia Cunha MD Unavailable Pratibha Blandon LPN Unavailable Unavailable Carrie Ferrer RN Unavailable Unavailable Didi Duarte RN Registered Nurse Unavailable Tiffani Gil RN Unavailable Unavailable Vladimir Munson MD Primary Care Provider Encounter Details Date Type Department Care Team Description 11/16/2017 Documentation [facility] Rajni Mandujano [address] [place] [id number] Social History Tobacco Use Types Packs/Day Years [...] as of this encounter Progress Notes Rajni Mandujano - 11/16/2017 4:03 PM CSTMedication Assistance packet has been mailed to the patients address on file. Once I receive the completed packet, I will determine if assistance is needed at that time and start the application process. Rajni Mandujano Medication Industrial Health Engineer [phone] in this encounter Plan of Treatment Not on fileas of this encounter Visit Diagnoses Not on filein this encounter
--- OUTSIDE RECORDS SUMMARY | 2018-01-24 13:45 | External Medical Summary | Encounter Summary ---
:1960 Author Organization [facility] Address [address] [place] [address] Phone Care Team Providers Name Role Phone Seferino Portillo MD Unavailable Pippa Neal Unavailable Unavailable Seferino Portillo MD Unavailable Tia Cunha MD Unavailable Pratibha Blandon LPN Unavailable Unavailable Carrie Ferrer RN Unavailable Unavailable Didi Duarte RN Registered Nurse Unavailable Tiffani Gil RN Unavailable Unavailable Vladimir Munson MD Primary Care Provider Encounter Details Date Type Department Care Team Description 11/16/2017 Documentation [facility] Nikki Medrano [address] [place] [address] Social History Tobacco Use Types Packs/Day Years [...] 10/28/2017 as of this encounter Progress Notes Nikki Medrano - 11/16/2017 4:34 PM CSTTalked with Juan Luis today and I am still working on obtaining his proof of income. He said he gaveit to a nurse in the doctors office last week, so I have emailed Lindsay Perdue to see if she by chance may have it. Will work with the Medication Assistance Team as well in case they receive his proof of income either. Nikki Medrano Pharmacy Patient Advocate Communications Equipment Supervisor [employer] [phone] in this encounter Plan of Treatment Not on fileas of this encounter Visit Diagnoses Not on filein this encounter
--- OUTSIDE RECORDS SUMMARY | 2018-01-24 13:46 | External Medical Summary | Encounter Summary ---
:1960 Author Organization [facility] Address [address] [place] [address] Phone Care Team Providers Name Role Phone Seferino Portillo MD Unavailable Pippa Neal Unavailable Unavailable Seferino Portillo MD Unavailable Tia Cunha MD Unavailable Pratibha Blandon SALES LEDGER ADMINISTRATOR Unavailable Unavailable Carrie Ferrer RN Unavailable Unavailable Didi Duarte RN Registered Nurse Unavailable Tiffani Gil RN Unavailable Unavailable Vladimir Munson MD Primary Care Provider Reason for Visit Reason Comments Lipid Management Encounter Details Date Type Department Care Team Description 11/11/2017 Nurse Only [facility] Elevated Lp(a); Physicians - Clinical Familial hypercholesterolemia Pharmacology GROUND FLOOR [address] [place] [address] Social History Tobacco Use Types [...] Vital Sign Reading Time Taken Blood Pressure 108/70 11/11/2017 11:16 AM PSYCHOPAEDIC NURSE Pulse 68 11/11/2017 11:16 AM PSYCHOPAEDIC NURSE Temperature 36.6 C (97.9 F) 11/11/2017 11:16 AM PSYCHOPAEDIC NURSE Respiratory Rate 16 11/11/2017 11:16 AM PSYCHOPAEDIC NURSE Oxygen Saturation - - Inhaled Oxygen Concentration - - Weight 74.5 kg (164 lb 4.8 oz) 11/11/2017 11:16 AM PSYCHOPAEDIC NURSE Height - - Body Mass Index 24.26 11/11/2017 11:16 AM PSYCHOPAEDIC NURSE in this encounter Functional Status Functional Status [...] 10/28/2017 as of this encounter Progress Notes Wesley Fraire MD - 11/11/2017 8:00 AM CSTI examined Juan Luis Urias ( from [place], [place]) today undergoing lipid apheresis. I was present throughout the lipid apheresis treatment which the patient tolerated very well. AM CALEB POMPA FACP.Lindsay Perdue RN - 11/11/2017 8:00 AM CSTPatient to clinic for Lipoprotein apheresis treatment. Cleaned bilateral AC's with alcohol swabs and allowed to air dry. Treatment started with no problems. Patient resting in recliner. Will monitor closely throughout treatment. See doc flow sheet. Lindsay Perdue RN Patient tolerated treatment well. 100% rinse back returned to patient. Pressures held until no signsof bleeding noted. Pressures held with Sure seal band aids, 4x4 gauze, and secured with Coban for pressure dressing. Patient will return to clinic in 2 weeks. See doc flow sheet. Lindsay Perdue RN in this encounter Plan of Treatment Not on fileas of this encounter Visit Diagnoses Diagnosis Elevated Lp(a) Other disorders of lipoid metabolism Familial hypercholesterolemia Pure hypercholesterolemia Administered Medications Inactive Administered Medications - up to 3 most recent administrations Medication Order MAR Action Action Date Dose Rate Site diphenhydrAMINE (BENADRYL) injection Given 11/11/2017 08:15 PSYCHOPAEDIC NURSE 25 mg 25 mg 25 mg, Intravenous, ONCE, 1 dose, Ling 11/11/17 at 0845 heparin (porcine) 30,000 Given - New 11/11/2017 08:15 1,500 Units/hr 1.5 mL /hr units/30 mL infusion (SYR) Bag PSYCHOPAEDIC NURSE (KANEKA APHERESIS) 1,500 Units/hr (1.5 mL/hr), at 1.5 mL/hr, Apheresis, TITRATE DIRECTED , Starting Ling 11/11/17 at 0845, Until Ling 11/11/17 at 2044, Initiate heparin infusion at 1500 units/hr and titrate per protocol NOTE: This is a HIGH ALERT Medication. heparin (porcine) bolus for continuous inf Given 11/11/2017 08:15 PSYCHOPAEDIC NURSE 2,000 Units (SYR) (KANEKA) 2,000 Units 2,000 Units, Apheresis, ONCE, 1 dose, Ling 11/11/17 at 0845, NOTE: This is a HIGH ALERT Medication in this encounter
--- OUTSIDE RECORDS SUMMARY | 2018-01-24 13:46 | External Medical Summary | Encounter Summary ---
:1960 Author Organization [facility] Address [address] [place] [address] Phone Care Team Providers Name Role Phone Seferino Portillo MD Unavailable Pippa Neal Unavailable Unavailable Seferino Portillo MD Unavailable Tia Cunha MD Unavailable Pratibha Blandon LPN Unavailable Unavailable Carrie Ferrer RN Unavailable Unavailable Didi Duarte RN Registered Nurse Unavailable Tiffani Gil RN Unavailable Unavailable Frank Edwards MD Primary Care Provider Reason for Visit Auth/Cert Status Reason Specialty Diagnoses / Procedures Referred By Contact Referred To Contact Diagnoses Claudication Procedures Abdominal Aortogram with Bilateral Runoffs Possible Peripheral Intervention Encounter Details Date Type Department Care Team Description 10/29/2017 - Hospital Cardiac Catheterization Isamar Sanchez, CAD (coronary 10/30/2017 Encounter Laboratory MD artery disease), [address] [place] [address] BLVD artery [phone] [address] [place] [address] [phone] Social History Tobacco Use Types Packs/Day Years [...] Vital Sign Reading Time Taken Blood Pressure 134/53 10/30/2017 7:38 AM REFRIGERATION ENGINEER Pulse 79 10/30/2017 7:38 AM REFRIGERATION ENGINEER Temperature 36.4 C (97.5 F) 10/30/2017 7:38 AM REFRIGERATION ENGINEER Respiratory Rate - - Oxygen Saturation 97% 10/30/2017 7:38 AM REFRIGERATION ENGINEER Inhaled Oxygen Concentration - - Weight 73.8 kg (162 lb 11.2 oz) 10/29/2017 7:38 AM REFRIGERATION ENGINEER Height 175.3 cm (5' 9") 10/29/2017 7:38 AM REFRIGERATION ENGINEER Body Mass Index 24.03 10/29/2017 7:38 AM REFRIGERATION ENGINEER in this encounter Functional Status Functional Status Response Date of Assessment Does the patient have a hearing impairment: No 09/14/2017 Does the patient have a visual impairment: No 09/14/2017 Does the patient have impaired ambulation: No 09/14/2017 Does the patient have an activity of daily living (ADL) No 09/14/2017 impairment: Does the patient have an instrumental activity of daily No 09/14/2017 living (IADL) impairment: Cognitive Status Response Date of Assessment Does the patient have a cognitive impairment: No 09/14/2017 as of this encounter Discharge Summaries Antonette Gonzalez APRN-NP - 10/30/2017 7:45 AM CSTFormatting of this note may be different from the original. Physician Discharge Summary Name: Vince Urias Date Of : 1960 Age: 57 years Admit date: 10/29/2017 Discharge date: 10/30/2017 Attending Physician: Dr. Isamar Sancehz Service: Cardiology- Interventional Physician Summary completed by: SILKE Paniagua Reason for hospitalization: worsening BLE claudication Significant PMH: Past Medical History: Diagnosis Date CAD (coronary artery disease) 02/18/2015 CAD (coronary artery disease), [place] coronary artery 02/18/2015 12/25/2014 - Stress Test: Abnormal MPI with evidence of infarct in the RCA territory. Preserved LV function and absence of stress induced myocardial cavity dilation. ([facility]). 03/11/17- Cardiac catheterization, left main had [...] Ischemic cardiomyopathy 05/13/2017 PAD (peripheral artery disease) ([facility]) PE (pulmonary embolism) coumadin anticoagulation Primary sclerosing cholangitis PSC (primary sclerosing cholangitis) 02/18/2015 S/P CABG (coronary artery bypass graft) [facility] Type 2 diabetes mellitus (HCC) 02/18/2015 Allergies: Garlic; Peanut; Chlorhexidine gluconate; Sulfa (sulfonamide antibiotics); and Xifaxan [rifaximin] Admission Physical Exam notable for: palpable pulses BLE; mild LLE edema Admission Lab/Radiology studies notable for: Hgb 8.2; stable Brief Hospital Course: Mr. Urias is 57 year old male that presents to [facility] today for worsening LE claudication. He has significant past medical history of atherosclerotic vascular disease he has had2 bypass surgeries and then since that time I have performed multiple times tenting of various [place]-apache and bypass arteries. His most recent interventions were earlier this year and one time he performed a full metal jacket to a severely diseased vein graft to the RCA PDA. Today the patient reports that he continues to have stable pattern of angina for which she takes Imduran occasional nitroglycerin he has had no episode that has been intractable. His most recent LE vascular intervention includedon 08/06/17 he was brought back to the analyst microbiology lab for AARO with BLE run off. He received a drug elutingballoon to his left SFA and stent; as well as 2 right iliac stents. He was again brought back to [facility] analyst microbiology lab for AARO with RLE run off to determine cause of claudication pain. He reported his R>L. His R SFA was stented as well as his iliac stents were balooned. There was good vessel run off a the end of the case. He tolerated the procedure well with no issues. Lipid profile revealed an LDL of 399 on Repatha which has worsened on Repatha therapy and concerns for hepatic failure. He has been receiving aphresis with Dr. Fischer. No other medication changes were made at this time. He will continue with Dr. Portillo for lipid phresis. Overnight, his left groin remained C/D/Intact. He will follow up with Dr. Sanchez in 1 month with BANDAR's and US of lower extremities. Condition at Discharge: Stable Discharge Diagnoses: PVD Hospital Problems Active Problems CAD (coronary artery disease), [place]-apache coronary artery Chronic liver disease PAD (peripheral artery disease) (HCC) HLD (hyperlipidemia) Surgical Procedures: AARO with Dr. Sanchez 10/29/17 Balloon to R iliac stent; angioplasty of L SFA Significant Diagnostic Studies and Procedures: noted in brief hospital course Consults: None Patient Disposition: Home Patient instructions/medications: Procedure Specific Activity *You may drive after 2 days. *You may shower after discharge. *NO tub baths, hot tubs, or swimming for 5 days. *NO lifting greater than 15 pounds for 1 week. *NO sexual or strenuous activity for 1 week. Report These Signs and Symptoms Please contact your doctor if you have any of the following symptoms: temperature higher than 100 degrees F, uncontrolled pain, persistent nausea and/ or vomiting, difficulty breathing, chest pain, severe abdominal pain, unable to have bowel movement or drainage with a foul odor Questions About Your Stay For questions or concerns regarding your hospital stay: - DURING BUSINESS HOURS (8:00 AM - 4:30 PM): Call [phone] and asked to be transferred to your discharge attending physician. - AFTER BUSINESS HOURS (4:30 PM - 8:00 AM, on weekends, or holidays): Call [phone] and ask the crimper operator to page the on-call doctor for the discharge attending physician. Discharging attending physician: ISAMAR SANCHEZ [[id number]] Cardiac Diet Limiting unhealthy fats and cholesterol is the most important step you can take in reducing your risk for cardiovascular disease. Unhealthy fats include saturated and trans fats. Monitor your sodium and cholesterol intake. Restrict your sodium to 2g (grams) or 2000mg (milligrams) daily, and your cholesterol to 200mg daily. If you have questions regarding your diet at home, you may contact a dietitian at . Current Discharge Medication List CONTINUE these medications which have NOT CHANGED Details ALPRAZolam (XANAX) 0.25 mg tablet Take 1 tablet by mouth as Needed for Anxiety ( TAKE ONE TABLET PRIOR TO 30 MINUTES PRIOR TO APHERESIS TREATMENT.). Qty: 30 tablet, Refills: 0 PRESCRIPTION TYPE: Print aspirin EC 81 mg tablet Take 1 Tab by mouth daily. Take with food. Qty: 90 Tab, Refills: 3 PRESCRIPTION TYPE: Normal carvedilol (COREG) 6.25 mg tablet Take 0.5 Tabs by mouth twice daily with meals. Take with food. Qty: 180 Tab, Refills: 3 PRESCRIPTION TYPE: Print Associated Diagnoses: Coronary artery disease involving y[place]-apache coronary artery of yavap[place]-apache heart with angina pectoris (HCC) chlorthalidone (HYGROTON) 25 mg tablet Take 25 mg by mouth daily. PRESCRIPTION TYPE: Historical Med CHOLECALCIFEROL (VITAMIN D3) (VITAMIN D3 PO) Take 5,000 Units by mouth daily. PRESCRIPTION TYPE: Historical Med clopiDOGrel (PLAVIX) 75 mg tablet Take 1 Tab by mouth daily. Qty: 90 Tab, Refills: 3 PRESCRIPTION TYPE: Print Associated Diagnoses: Coronary artery disease involving [place]-apache coronary artery of [place]-apache heart with unstable angina pectoris (HCC); Chronic liver disease; S/P CABG (coronary artery bypass graft); PAD (peripheral artery disease) ([facility]); Gastroesophageal reflux disease without esophagitis; Essential hypertension with goal blood pressure less than 130/85; Other hyperlipidemia; Accelerating angina ([facility]); Coronary artery disease involving y[place]ap[place]-apache coronary artery of yavap[place]-apache heart with angina pectoris ([facility]) ergocalciferol (VITAMIN D-2) 50,000 unit capsule Take 1 capsule by mouth every 7 days. PRESCRIPTION TYPE: Historical Med escitalopram oxalate (LEXAPRO) 20 mg tablet Take 20 mg by mouth daily. PRESCRIPTION TYPE: Historical Med !! evolocumab (REPATHA PUSHTRONEX) INFUSOR CARTRIDGE Inject 420mg under the skin every 30 days. Qty: 3.5 mL, Refills: 11 PRESCRIPTION TYPE: Normal !! evolocumab 420 mg/3.5 mL Injt Inject 420 mg under the skin every 14 days. Qty: 2 mL, Refills: 11 PRESCRIPTION TYPE: Normal ferrous gluconate 324 mg (36 mg iron) tab Take 324 mg by mouth daily. PRESCRIPTION TYPE: Historical Med folic acid (FOLVITE) 1 mg tablet Take 1 mg by mouth daily. PRESCRIPTION TYPE: Historical Med HYDROcodone/acetaminophen (NORCO) 7.5/325 mg tablet Take 0.5-1 Tabs by mouth every 6 hours as neededfor Pain (back pain) PRESCRIPTION TYPE: Historical Med isosorbide mononitrate SR (IMDUR) 30 mg tablet Take 15 mg by mouth daily as needed (chest pain or neck pain). PRESCRIPTION TYPE: Historical Med loperamide (IMODIUM) 2 mg capsule Take 4 mg by mouth daily. PRESCRIPTION TYPE: Historical Med losartan(+) (COZAAR) 100 mg tablet Take 1 Tab by mouth daily. Qty: 90 Tab, Refills: 3 PRESCRIPTION TYPE: Print Associated Diagnoses: Coronary artery disease involving [place] coronary artery of [place] heart with angina pectoris (HCC) pantoprazole DR (PROTONIX) 40 mg tablet Take 40 mg by mouth daily. PRESCRIPTION TYPE: Historical Med potassium chloride (KDUR) 10 mEq tablet Take 20 mEq by mouth daily. PRESCRIPTION TYPE: Historical Med !! - Potential duplicate medications found. Please discuss with provider. Scheduled appointments: Dec 15, 2017 10:30 AM REFRIGERATION ENGINEER Complete Lower Arterial Duplex with BANDAR's with [facility] ROOM [facility] Cardiology ([facility]) [address] [place] [id number] Dec 15, 2017 1:00 PM REFRIGERATION ENGINEER Left Lower Extremity Arterial Scan with [facility] PV ROOM [facility] Cardiology ([facility]) [address] [place] [id number] Dec 15, 2017 2:30 PM REFRIGERATION ENGINEER Office Visit with Isamar Sanchez MD [facility] Cardiology ([facility]) [address] [place] [address] [address] [facility] [address] May 05, 2018 1:40 PM CDT Return Patient with Lindsay Damico MD [facility] (T ) [address] [facility] [id number] Pending items needing follow up: follow up with Dr. Sanchez in 1 month with ABIS Signed: Antonette Gonzalez APRN-UI UX WEB DEVELOPER 10/30/2017 cc: Primary Care Physician: Frank Edwards Verified Referring physicians: Vladimir Munson MD Additional provider(s): in this encounter Medications at Time of Discharge Medication Sig. Disp. Refills Start Date End Date ALPRAZolam (XANAX) 0.25 mg Take 1 tablet by 30 tablet 0 10/28/2017 tablet mouth as Needed for Anxiety (TAKE ONE TABLET PRIOR TO 30 MINUTES PRIOR TO APHERESIS TREATMENT.). aspirin EC 81 mg tablet Take 1 Tab by mouth 90 Tab 3 08/25/2016 daily. Take with food. carvedilol (COREG) 6.25 mg Take 0.5 Tabs by 180 Tab 3 04/11/2017 tabletIndications: Coronary mouth twice daily artery disease involving with meals. Take [place] coronary artery of with food. y[place]-apache heart with angina pectoris (HCC) chlorthalidone (HYGROTON) Take 25 mg by mouth 25 mg tablet daily. CHOLECALCIFEROL (VITAMIN Take 5,000 Units by D3) (VITAMIN D3 PO) mouth daily. clopiDOGrel (PLAVIX) 75 mg Take 1 Tab by mouth 90 Tab 3 04/11/2017 tabletIndications: Coronary daily. artery disease involving [place] coronary artery of [place] heart with unstable angina pectoris ([facility]), Chronic liver disease, S/P CABG (coronary artery bypass graft), PAD (peripheral artery disease) ([facility]), Gastroesophageal reflux disease without esophagitis, Essential hypertension with goal blood pressure less than 130/85, Other hyperlipidemia, Accelerating angina ([facility]), Coronary artery disease involving [place]-apache coronary artery of [place]-apache heart with angina pectoris ([facility]) ergocalciferol (VITAMIN Take 1 capsule by D-2) 50,000 unit capsule mouth every 7 days. escitalopram oxalate Take 20 mg by mouth (LEXAPRO) 20 mg tablet daily. evolocumab (REPATHA Inject 420mg under 3.5 mL 11 10/21/2017 PUSHTRONEX) INFUSOR the skin every 30 CARTRIDGE days. evolocumab 420 mg/3.5 mL Inject 420 mg under 2 mL 08/13/2017 Injt the skin every 14 days. [...] by mouth capsule daily. losartan(+) (COZAAR) 100 mg Take 1 Tab by mouth 90 Tab 3 03/12/2017 tabletIndications: Coronary daily. artery disease involving [place]-apache coronary artery of [place] heart with angina pectoris (HCC) pantoprazole DR (PROTONIX) Take 40 mg by mouth 40 mg tablet daily. potassium chloride (KDUR) Take 20 mEq by mouth 10 mEq tablet daily. as of this encounter Progress Notes Gaye Lopez RN - 10/30/2017 9:24 AM CSTPatient discharged to home with all belongings. Discharge instructions, med reconciliation and homewound care instructions given and explained to patient and family both verbally and written. Accompanied by family. No complaints of pain or discomfort. Left groin remains clean, dry, and intact with no evidence of a bleed after ambulation. Patient escorted [facility] via Transport. Patient to follow up with [facility] Cardiology ([facility]) or on-call physician with any additional questions or concerns. All contact numbers provided. Patient and family acceptant of DC instuctions and report understanding to all information.Laura Noriega RN - 10/29/2017 7:05 AM [id number] Patient arrived on unit via ambulation accompanied by family. Patient transferred to the bed without assistance. Assessment completed, refer to flowsheet for details. Orders released, reviewed, and implemented as appropriate. Oriented to surroundings, call light within reach. Plan of care reviewed. Will continue to monitor and assess.in this encounter H&P Notes Anila Carolina APRN - 10/29/2017 7:36 AM CSTFormatting of this note may be different from the original. Admission History and Physical Examination Name: Vince Urias Admission Date: 10/29/2017 Assessment/Plan: Active Problems: CAD (coronary artery disease), [place] coronary artery Chronic liver disease PAD (peripheral artery disease) (HCC) HLD (hyperlipidemia) Mr. Urias is a 57 year old male with significant cardiac and vascular history that presents for BLE worsening claudication. He presents for AARO with runoff d /t claudication symptoms. He has been consented and elects to proceed. Notified Dr. Sanchez and Dr. Burnham of low; but stable HGB. Likely r/t his cirrhosis. __ Primary Care Physician: Frank Edwards Verified Chief Complaint: restenosis of L SFA; BLE claudication History of Present Illness: Vince Urias is a 57 y.o. male well know to the IC service historyof significant CAD, chronic liver disease, DDD, Depression , Hyperlipidemia on light phresis with .He presents for worsening BLE claudication; R>L. He denies any rest pain or nonhealing wounds or ulcers. He has not had any worsening episodes of chest pain. His chronic angina is stable with taking 1/2 IMDUR daily. He denies any shortness of breath. His HGB is chronically low; this has been stable. Past Medical History: Diagnosis Date CAD (coronary artery disease) 02/18/2015 CAD (coronary artery disease), [place] coronary artery 02/18/2015 12/25/2014 - Stress Test: Abnormal MPI with evidence of infarct in the RCA territory. Preserved LV function and absence of stress induced myocardial cavity dilation. ([facility]). 03/11/17- Cardiac catheterization, left main had [...] 02/18/2015 S/P CABG (coronary artery bypass graft) [facility] Type 2 diabetes mellitus (HCC) 02/18/2015 Past Surgical History: Procedure Laterality Date CORONARY ARTERY BYPASS GRAFT 08/20/2010 quad; with bypass angiography SURGERY 12/2010 right carotid endarterectomy CORONARY STENT PLACEMENT 01/06/2012 x1 PERCUTANEOUS CORONARY INTERVENTION N/A 03/20/2016 Percutaneous Coronary Intervention performed by Tino Durbin MD at [facility] PERCUTANEOUS CORONARY INTERVENTION N/A 03/11/2017 Possible Percutaneous Coronary Intervention performed by Isamar Sanchez MD at [facility] PERCUTANEOUS CORONARY INTERVENTION N/A 04/09/2017 Percutaneous Coronary Intervention to Saphenous Vein Graft, Right Coronary Artery performed by Isamar Sanchez MD at [facility] PERCUTANEOUS CORONARY INTERVENTION N/A 04/09/2017 Percutaneous Coronary Intervention performed by Isamar Sanchez MD at [facility] PERCUTANEOUS CORONARY INTERVENTION N/A 05/13/2017 Possible Percutaneous Coronary Intervention performed by Isamar Sanchez MD at [facility] PERCUTANEOUS CORONARY INTERVENTION N/A 09/29/2017 Possible Percutaneous Coronary Intervention performed by Isamar Sanchez MD at [facility] CARDIAC CATHERIZATION Family history reviewed; non-contributory Social History Social History Marital status: Spouse name: N/A Number of children: N/A Years of education: N/A Social History Main Topics Smoking status: Former Smoker Packs/day: 0.25 Years: 0.50 Types: Cigarettes Quit date: 11/15/1975 Smokeless tobacco: Former User Types: Chew Quit date: 11/15/2010 Alcohol use 4.8 - 5.4 oz/week 4 - 5 Cans of beer, 4 Standard drinks or equivalent per week Drug use: No Sexual activity: Not on file Other Topics Concern Not on file Social History Narrative Immunizations (includes history and patient reported): Immunization History Administered Date(s) Administered Flu Vaccine Trivalent 18-64 Yo Intradermal 08/17/2014 Flu Vaccine Trivalent=>3 Yo (Preservative Free) 09/05/2013, 08/17/2014 Allergies: Garlic; Peanut; Chlorhexidine gluconate; Sulfa (sulfonamide antibiotics); and Xifaxan [rifaximin] Medications: Prescriptions Prior to Admission Medication Sig ALPRAZolam (XANAX) 0.25 mg tablet Take 1 tablet by mouth as Needed for Anxiety (TAKE ONE TABLET PRIOR TO 30 MINUTES PRIOR TO APHERESIS TREATMENT.). aspirin EC 81 mg tablet Take 1 Tab by mouth daily. Take with food. carvedilol (COREG) 6.25 mg tablet Take 0.5 [...] for Pain (back pain) isosorbide mononitrate SR (IMDUR) 30 mg tablet [...] tablet Take 20 mEq by mouth daily. Review of Systems: All other systems reviewed and are negative. Physical Exam: Vital Signs: Last Filed In 24 Hours Vital Signs: 24 Hour Range BP: 128/65 (10/29 738) Temp: 36.8 C (98.2 F) (10/29 738) Pulse: 70 (10/29 738) Respirations: 18 PER MINUTE (10/29 738) SpO2: 98 % (10/29 738) Height: 175.3 cm (69") (10/29 0738) BP: (114-145)/(65-75) Temp: [36.1 C (97 F)-37.1 C (98.8 F)] Pulse: [69-82] Respirations: [18 PER MINUTE] SpO2: [98 %-99 %] General: Alert, cooperative, no distress, appears stated age Lungs: Clear to auscultation bilaterally Chest wall: No tenderness or deformity. Heart: Regular rate and rhythm, S1, S2 normal, no murmur, click rub or gallop Extremities: Extremities normal, atraumatic, no cyanosis or edema Peripheral pulses: 2+ and symmetric, all extremities Cap Refill: < 3 seconds Neurologic: CNII - XII intact. Normal strength, sensation and reflexes throughout. Lab/Radiology/Other Diagnostic Tests: 24-hour labs: No results found for this visit on 10/29/17 (from the past 24 hour(s)). Pertinent radiology reviewed. Anila Carolina APRN Pager [phone] this encounter Procedure Notes Isamar Sanchez MD - 10/29/2017 4:19 PM CSTAssociated Order(s): [facility] CARDIAC CATHETERIZATION REPORT Page 3 VINCE Ordonez : 1960 KU#: [id number] MR #/Billing ID #: [id number] / [id number] DATE: 10/29/2017 APPLICATION DEVELOPMENT LIAISON: Isamar Sanchez MD DICTATING PROVIDER: Ezekiel Burnham MD REFERRING PHYSICIAN: Vladimir Munson MD INTERVENTIONAL LAWN MOWER MECHANIC: Ezekiel Burnham MD. PROCEDURES PERFORMED: 1. Right [...] explained to the patient by both Dr. Sanchez and myself. Risks of access site complications, bleeding, arterial dissection, limb ischemia, need for vascular surgery were explained to the patient, who verbalized understanding of these conditions and consented to the procedure. Written informed consent has been placed in the chart as well. The patient was brought in the analyst microbiology lab in a fasting, nonsedated state. After giving the patient a total of 100 mcg of fentanyl and 4 mg of Versed, we achieved moderate conscious sedation, which was monitored and maintained throughout the procedure for a total of 120 minutes. Respiratory, hemodynamic, and neurological parameters were monitored throughout the procedure by the operators and by the analyst microbiology lab staff. The patient is prepped and draped in sterile fashion. We exposed bilateral groins and prepped with 1% chlorhexidine, instilled a total of 20 mL of 1% lidocaine for good local anesthesia. We then gained access into the left common femoral artery using a micropuncture needle and modified Seldinger technique. We introduced a 5-Brazilian diagnostic arterial 10 cm [place] sheath with good blood flow return. We introduced a Novato Flush one 5-Brazilian catheter over an 0.035, 180 cm Storq [...] UF-1 catheter across this particular lesion because wewere suspicious of any particular lesion which was coming off that particular region. However, we obtained an abdominal aortogram, which demonstrated no significant lesion, but was just below the angle, which was making it difficult for us to track the UF catheter. We then subsequently switched for a higher size 6-Brazilian 10 cm [place] sheath on the left groin over the 0.035 Storq wire. After this, we decided to take an 8.0 x 20 x 80 mm EverCross balloon across this particular lesion over the 0.035 Storq wire. However, we noted significant difficulty in getting across the junction between these2 right external iliac and common iliac stents. We then removed the EverCross balloon and took the UF back again and performed an abdominal aortogram with bilateral iliofemoral runoff, which demonstrated a wide patency of both these stents in the right common and external iliac artery, indicating theabsence of any stenosis. It was purely the angle which was causing the problem. We then removed the UF catheter and tried to directly insert a 5-Brazilian 45 cm Destination sheath across this particularbend in the right common iliac artery, but we were unsuccessful in doing so. We then removed the 5-Brazilian Destination sheath dilator and tried to pass it over the 0.035 Storq wire that would be unsuccessful as well. We then took a 5.0 x 40 x 80 mm [place] 35 balloon over the 0.035 Storq wire system and performed angioplasty across this particular bend at the region of the overlap between the stents 13 seconds at 14 atmospheres hoping that this would make way for us to pass the sheath. We then switched out over the 0.035 Storq wire for a 6-Brazilian 45 cm Destination straight sheath, which would again not pass this particular lesion. We then introduced the same 6-Brazilian dilator and tried to pass across this lesion, which was again unsuccessful. We tried to pass a smaller 7.0 x 30 x 80 mm EverCross balloon, which would again not cross this particular bend. We had significant difficulty getting across it. We then switched for a 5-Brazilian 45 cm Shailesh flexor sheath and tried to get across this lesion and that would not work either. We were not able to track the sheath. We then removed the Anseldilator 5-Brazilian and tried to pass across this lesion and that still would not work. Keeping the 0.[address], we introduced another 0.018 x 180 cm Steelcore wire across the 5-Brazilian Shailesh sheath and got into the distal portion of the popliteal artery. Keeping access with the 0.018 Steelcorewire, we removed the Storq wire and subsequently switched to an 0.018 system. Over the Steelcore wire, we introduced a 0.018 x 90 cm Quick-Cross catheter and switched out for a longer Steelcore wire in the form of a 0.018 x 300 cm Steelcore. Over this long Steelcore wire and an 0.018 system, we introduced a 6.0 x 40 x 150 mm [place] balloon and performed balloon angioplasty of the right external iliac artery stent for 24 seconds at 12 atmospheres, followed by another 35 seconds at 12 atmospheres todilate the segment. After this was done, we were able to pass the 5-Brazilian Shailesh sheath across thisparticular bend and gained access into the right external iliac artery with the sheath. With the tip of the sheath in place at that particular region, we introduced a 4.0 x 80 x 150 mm [place] 18 balloon and accessed the right mid to distal SFA and performed balloon angioplasty for 2 different inflations, both of which were 8 atmospheres lasting 80 to 120 seconds each. We then noticed excellent reduction in stenosis and, given the fact that we were not able to introduce a 6-Brazilian system, we decided to direct stent this lesion instead of a drug-coated balloon. We then introduced a 6.0 x 120 x 120mm EverFlex self- expanding stent and deployed it in the mid to distal SFA overlapping both the tandem lesions of 80% to 90% each. We noticed that some of the segment of the stent were under-expanded.We post-dilated the stent using a 5.5 x 100 x 150 mm [place] 18 balloon for a total of 3 different inflations lasting 4 to 6 atmospheres lasting 30 to 40 seconds each with excellent stent expansion and apposition. There was no evidence of edge dissection. Good flow was noted across the stent into thepopliteal artery. We also performed a runoff to the right lower extremity, which demonstrated excellent 2 vessel runoff, which was consistent with preprocedural levels with the AT and the PT supplyinga good runoff to the right foot. On our way back, we kept the 0.[address] and tracked the same 5.5 x 100 x 150 mm [place] 18 balloon and performed another balloon angioplasty in the junction between these 2 stents and the common iliac arteries on the right side. The 5.5 balloon was inflated for 8 atmospheres for a total of 50 seconds, following which we removed the Storq wire and the balloon together and switched out for a 5-Brazilian 11 cm Destination sheath. Manual compression method [...] stenosis. The AT and PT supply a 2- vessel runoff to the right foot and have [...] at the end of the procedure. Dr. Sanchez, my attending, was scrubbed and performed trammell [...] a 5.5 x 100 x 150 mm [place] 18 balloon with 6 atmospheres inflations with excellent angiographic results. 3. Aspirin and Plavix will be used for dual antiplatelet therapy. Isamar Sanchez MD PCG/MedQ /[id number] p cc: - Vladimir Munson MDin this encounter Plan of Treatment Not on fileas of this encounter Procedures Procedure Name Priority Date/Time Associated Diagnosis Comments PROCEDURE 11/07/2017 2:28 PM Results for this RECORD-SCAN REFRIGERATION ENGINEER procedure are in the results section. TELEMETRY 11/07/2017 2:19 PM Results for this STRIPS-SCAN REFRIGERATION ENGINEER procedure are in the results section. in this encounter Results PROCEDURE RECORD-SCAN (11/07/2017 2:28 PM) Narrative Ordered by an unspecified provider. TELEMETRY STRIPS-SCAN (11/07/2017 2:19 PM) Narrative Ordered by an unspecified provider. CARDIAC CATH REPORT (10/31/2017 12:29 PM) Specimen Performing Laboratory OTHER OUTSIDE LAB Procedure Note Isamar Sanchez MD - 10/29/2017 4:19 PM REFRIGERATION ENGINEER [facility] CARDIAC CATHETERIZATION REPORT Page 3 VINCE Ordonez : 1960 KU#: [id number] KU MR #/Billing ID #: [id number] / [id number] DATE: 10/29/2017 APPLICATION DEVELOPMENT LIAISON: Isamar Sanchez MD DICTATING PROVIDER: Ezekiel Burnham MD REFERRING PHYSICIAN: Vladimir Munson MD INTERVENTIONAL LAWN MOWER MECHANIC: Ezekiel Burnham MD. PROCEDURES PERFORMED: 1. Right [...] explained to the patient by both Dr. Sanchez and myself. Risks of access site complications, bleeding, arterial dissection, limb ischemia, need for vascular surgery were explained to the patient, who verbalized understanding of these conditions and consented to the procedure. Written informed consent has been placed in the chart as well. The patient was brought in the analyst microbiology lab in a fasting, nonsedated state. After giving the patient a total of 100 mcg of fentanyl and 4 mg of Versed, we achieved moderate conscious sedation, which was monitored and maintained throughout the procedure for a total of 120 minutes. Respiratory, hemodynamic, and neurological parameters were monitored throughout the procedure by the operators and by the analyst microbiology lab staff. The patient is prepped and draped in sterile fashion. We exposed bilateral groins and prepped with 1% chlorhexidine, instilled a total of 20 mL of 1% lidocaine for good local anesthesia. We then gained access into the left common femoral artery using a micropuncture needle and modified Seldinger technique. We introduced a 5-Brazilian diagnostic arterial 10 cm [place] sheath with good blood flow return. We introduced a [place] Flush one 5-Brazilian catheter over an 0.035, 180 cm Storq [...] then subsequently switched for a higher size 6-Brazilian 10 cm [place] sheath on the left groin over the [...] catheter and tried to directly insert a 5-Brazilian 45 cm Destination sheath across this particular bend in the right common iliac artery, but we were unsuccessful in doing so. We then removed the 5-Brazilian Destination sheath dilator and tried to pass it over the 0.035 Storq wire that would be unsuccessful as well. We then took a 5.0 x 40 x 80 mm [place] 35 balloon over the 0.035 Storq wire system and performed angioplasty across this particular bend at the region of the overlap between the stents 13 seconds at 14 atmospheres hoping that this would make way for us to pass the sheath. We then switched out over the 0.035 Storq wire for a 6-Brazilian 45 cm Destination straight sheath, which would again not pass this particular lesion. We then introduced the same 6-Brazilian dilator and tried to pass across this lesion, which was again unsuccessful. We tried to pass a smaller 7.0 x 30 x 80 mm EverCross balloon, which would again not cross this particular bend. We had significant difficulty getting across it. We then switched for a 5- Brazilian 45 cm Shailesh flexor sheath and tried to get across this lesion and that would not work either. We were not able to track the sheath. We then removed the Shailesh dilator 5-Brazilian and tried to pass across this lesion and that still would not work. Keeping the 0.[address], we introduced another 0.018 x 180 cm Steelcore wire across the 5- Brazilian Shailesh sheath and got into the distal [...] a 6.0 x 40 x 150 mm [place] balloon and performed balloon angioplasty of the right external iliac artery stent for 24 seconds at 12 atmospheres, followed by another 35 seconds at 12 atmospheres to dilate the segment. After this was done, we were able to pass the 5-Brazilian Shailesh sheath across this particular bend and gained access into the right external iliac artery with the sheath. With the tip of the sheath in place at that particular region, we introduced a 4.0 x 80 x 150 mm [place] 18 balloon and accessed the right mid to distal SFA and performed balloon angioplasty for 2 different inflations, both of which were 8 atmospheres lasting 80 to 120 seconds each. We then noticed excellent reduction in stenosis and, given the fact that we were not able to introduce a 6-Brazilian system, we decided to direct stent this [...] a 5.5 x 100 x 150 mm [place] 18 balloon for a total of 3 [...] same 5.5 x 100 x 150 mm [place] 18 balloon and performed another balloon angioplasty in the junction between these 2 stents and the common iliac arteries on the right side. The 5.5 balloon was inflated for 8 atmospheres for a total of 50 seconds, following which we removed the Storq wire and the balloon together and switched out for a 5-Brazilian 11 cm Destination sheath. Manual compression method [...] at the end of the procedure. Dr. Sanchez, my attending, was scrubbed and performed trammell [...] a 5.5 x 100 x 150 mm [place] 18 balloon with 6 atmospheres inflations with excellent angiographic results. 3. Aspirin and Plavix will be used for dual antiplatelet therapy. Isamar Sanchez MD PCG/MedQ /[id number] p cc: - Vladimir Munson MD BASIC METABOLIC PANEL (10/30/2017 4:07 AM) Component [...] Pharmacist for questions. Specimen Performing Laboratory Blood MAIN LAB [address] [place] [id number] CBC (10/30/2017 4:07 AM) Component Value Ref Range White Blood Cells [...] - 11 FL Specimen Performing Laboratory Blood [facility] [address] [place] [id number] POC ACTIVATED CLOTTING TIME (10/29/2017 1:58 PM) Component Value Ref Range Activated Clotting Time 177 s Specimen Performing Laboratory MAIN LAB [address] [place] [address] [id number] POC ACTIVATED CLOTTING TIME (10/29/2017 1:07 PM) Component Value Ref Range Activated Clotting Time 232 s Specimen Performing Laboratory MAIN LAB [address] [place] [address] [id number] POC ACTIVATED CLOTTING TIME (10/29/2017 11:40 AM) Component Value Ref Range Activated Clotting Time 283 s Specimen Performing Laboratory [facility] [address] [place] [address] [id number] POC ACTIVATED CLOTTING TIME (10/29/2017 11:31 AM) Component Value Ref Range Activated Clotting Time 199 s Specimen Performing Laboratory [facility] [address] [place] [address] [id number] POC ACTIVATED CLOTTING TIME (10/29/2017 11:07 AM) Component Value Ref Range Activated Clotting Time 291 s Specimen Performing Laboratory [facility] [address] [place] [address] [id number] MRSA SCREEN (10/29/2017 8:50 AM) Component Value Ref Range Battery Name MRSA SCREEN Specimen Description NASAL Special Requests NONE Culture NO MRSA ISOLATED Report Status FINAL 10/30/2017 Specimen Performing Laboratory Nasal MAIN LAB [address] [place] [address] [id number] POC GLUCOSE (10/29/2017 7:45 AM) Component Value Ref Range Glucose, POC 109 (H) 70 - 100 MG/DL Specimen Performing Laboratory [facility] [address] [place] [address] POC PT/INR (10/29/2017 7:45 AM) Component Value Ref Range INR POC 1.0 0.8 - 1.2 Specimen Performing Laboratory MAIN LAB [address] [place] [address] in this encounter Visit Diagnoses Diagnosis PAD (peripheral artery disease) (HCC) - Primary Peripheral vascular disease, unspecified Coronary artery disease involving [place] coronary artery with unstable angina pectoris, unspecified whether [place] or transplanted heart (HCC) Chronic liver disease Unspecified chronic liver disease without mention of alcohol Mixed hyperlipidemia S/P CABG (coronary artery bypass graft) Postsurgical aortocoronary bypass status Essential hypertension Unspecified essential hypertension Admitting Diagnoses Diagnosis Claudication PVD (peripheral vascular disease) (HCC) Administered Medications Inactive Administered Medications - up to 3 most recent administrations Medication Order MAR Action Action Date Dose Rate Site aspirin EC tablet 81 mg Given 10/30/2017 07:40 REFRIGERATION ENGINEER 81 mg 81 mg, Oral, DAILY, First dose on 10/30/17 at 0900, Until Discontinued carvedilol (COREG) tablet 3.125 mg Given 10/29/2017 16:58 REFRIGERATION ENGINEER 3.125 mg 3.125 mg, Oral, TWICE DAILY WITH MEALS, First dose on Wed10/29/17 at 1700, Until Discontinued, Hold for heart rate < 60 bpm; systolic <100 Given 10/30/2017 07:39 REFRIGERATION ENGINEER 3.125 mg chlorthalidone (HYGROTON) tablet 25 mg Given 10/30/2017 07:39 REFRIGERATION ENGINEER 25 mg 25 mg, Oral, DAILY, First dose on Wed10/29/17 at 1700, Until Discontinued, Take with food. clopiDOGrel (PLAVIX) tablet 75 mg Given 10/30/2017 07:39 REFRIGERATION ENGINEER 75 mg 75 mg, Oral, DAILY, First dose on Wed10/30/17 at 0900, Until Discontinued, This Medication can increase the risk of bleeding and may need to be held prior to surgery or invasive procedures. Consult physician in advance. isosorbide mononitrate SR (IMDUR) tablet 15 mg Given 10/30/2017 07:43 REFRIGERATION ENGINEER 15 mg 15 mg, Oral, DAILY PRN, Starting Wed10/29/17 at 1231, Until 12/16/17 at 1126, chest pain or neck pain, DO NOT Crush tablets (May be cut in half) losartan (COZAAR) tablet 100 mg Given 10/29/2017 20:37 REFRIGERATION ENGINEER 100 mg 100 mg, Oral, DAILY, First dose on Wed10/29/17 at 1330, Until Discontinued sodium chloride 0.9 % infusion Given - New Bag 10/29/2017 07:45 REFRIGERATION ENGINEER 50 mL/hr 1,000 mL, Intravenous, at 50 mL/hr, CONTINUOUS, Starting Wed10/29/17 at 0715, Until 10/30/17 at 1126, If EF is <40%, contact CCL Charge Nurse [phone]) before initiating fluid. in this encounter
--- OUTSIDE RECORDS SUMMARY | 2018-01-24 13:46 | External Medical Summary | Encounter Summary ---
:[address] [facility] Address [address] [place] [address] Phone Care Team Providers Name Role Phone Seferino Portillo MD Unavailable Pippa Neal Unavailable Unavailable Seferino Portillo MD Unavailable Tia Cunha MD Unavailable Pratibha Blandon LPN Unavailable Unavailable Carrie Ferrer RN Unavailable Unavailable Didi Duarte RN Registered Nurse Unavailable Tiffani Gil RN Unavailable Unavailable Frank Edwards MD Primary Care Provider Vladimir Munson MD Primary Care Provider Encounter Details Date Type Department Care Team Description 11/01/2017 Pharmacy Visit [facility] [address] [place] [address] Social History Tobacco Use Types Packs/Day Years [...]
--- OUTSIDE RECORDS SUMMARY | 2018-01-24 13:46 | External Medical Summary | Encounter Summary ---
:1960 Author Organization [facility] Address [address] [place] [address] [place] [address] Phone Care Team Providers Name Role Phone [...] Ulcerative colitis with complication, unspecified location (HCC) group home systemic steroid user History of fracture Julia Torres Gen Procedures BONE DENSITY SPINE/HIP Alina Ordonez MD Radiology [address] [place] [address] [place] [address] Phone: Reason for Visit Reason Comments New Patient Ulcerative pancolitis Consult, Test & Treat Status Reason Specialty Diagnoses / Referred By Referred To Procedures Contact Contact No Auth Specialty Gastroenterology Diagnoses Primary sclerosing cholangitis Ulcerative pancolitis without complication (HCC) Ulcerative Colitis Norbert Damico Needed Services MD Laura Montoya, DO Required [address] [place] [address], [place] [address] [place] [address] [place], Phone: [place] [address] Phone: Encounter Details Date Type Department Care Team Description 11/11/2017 Office Visit [facility] Lindsay Damico MD [address] [place], [place] [id number] Iron deficiency (Primary Dx); Physicians - Internal Alina Torres MD [address] [place] [address] Vitamin D deficiency; Medicine Ulcerative colitis with complication, unspecified location ([facility]); [address] [place] group home systemic steroid user; [address] [place] [address] Social History Tobacco Use Types Packs/Day Years [...] Vital Sign Reading Time Taken Blood Pressure 127/75 11/11/2017 1:00 PM INGREDIENT SCALER HELPER Pulse 67 11/11/2017 1:00 PM INGREDIENT SCALER HELPER Temperature 36.8 C (98.2 F) 11/11/2017 1:00 PM INGREDIENT SCALER HELPER Respiratory Rate 16 11/11/2017 1:00 PM INGREDIENT SCALER HELPER Oxygen Saturation 100% 11/11/2017 1:00 PM INGREDIENT SCALER HELPER Inhaled Oxygen Concentration - - Weight 78.2 kg (172 lb 6.4 oz) 11/11/2017 1:00 PM INGREDIENT SCALER HELPER Height 175.3 cm (5' 9") 11/11/2017 1:00 PM INGREDIENT SCALER HELPER Body Mass Index 25.46 11/11/2017 1:00 PM INGREDIENT SCALER HELPER in this encounter Functional Status Functional Status [...] Patient Instructions - Jessica Alvarenga RN - 11/11/2017 1:00 PM CSTDrOracio Cm is recommending: Please go to the lab after your visit today. Lialda 4 tablets per day will be recommended for you and we will have the pharmacy at will work on Patient Assistance. Uceris has been submitted to your pharmacy. Calcium supplement with Vit D 1000 mg/800 IU Discuss discontinuing prednisone with prescribing physician. Bring in copy of immunization record at next visit. If you have any questions or concerns related to your care please contact AMISHA Lopez via [employer] (preference) or @ [phone]. Follow up appointment in 1 month. in this encounter Progress Notes Kourtney-Alina Cm MD - 11/11/2017 1:00 PM CSTFormatting of this note may be different from the original. Reason for Visit: To establish care for ulcerative colitis HPI: Mr. Gandhi is a 57-year-old gentleman who presented to establish care for ulcerative colitis. He currently experiences [...] 1999. He sees one of our transplant warehouse delivery manager at [facility] for primary sclerosing cholangitis. He also suffers [...] cholangitis on liver biopsy sometime between 2001 [id number]: He has been started on ursodiol at that time. [id number]: He was treated for coronary artery disease and peripheral vascular disease with stent placement and CABG. 2014: He was started on Lialda and Entocort. [...] chronic colitis. The terminal ileum was normal. PMH: Past Medical History: Diagnosis Date CAD (coronary artery disease) 02/18/2015 CAD (coronary artery disease), [place] coronary artery 02/18/2015 12/25/2014 - Stress Test: Abnormal MPI with evidence of infarct in the RCA territory. Preserved LV function and absence of stress induced myocardial cavity dilation. ([facility] 03/11/17- Cardiac catheterization, left main had [...] CABG (coronary artery bypass graft) [facility] Type 2 diabetes mellitus (HCC) 02/18/2015 PSH: Past Surgical History: Procedure Laterality Date CORONARY ARTERY BYPASS GRAFT 08/20/2010 quad; with bypass angiography SURGERY 12/2010 right carotid endarterectomy CORONARY STENT PLACEMENT 01/06/2012 x1 PERCUTANEOUS CORONARY INTERVENTION N/A 03/20/2016 Percutaneous Coronary Intervention performed by Tino Durbin MD at [facility] PERCUTANEOUS CORONARY INTERVENTION N/A 03/11/2017 Possible Percutaneous Coronary Intervention performed by Isamar Avila MD at [facility] PERCUTANEOUS CORONARY INTERVENTION N/A 04/09/2017 Percutaneous Coronary Intervention to Saphenous Vein Graft, Right Coronary Artery performed by Isamar Avila MD at [facility] PERCUTANEOUS CORONARY INTERVENTION N/A 04/09/2017 Percutaneous Coronary Intervention performed by Isamar Avila MD at [facility] PERCUTANEOUS CORONARY INTERVENTION N/A 05/13/2017 Possible Percutaneous Coronary Intervention performed by Isamar Avila MD at [facility] PERCUTANEOUS CORONARY INTERVENTION N/A 09/29/2017 Possible Percutaneous Coronary Intervention performed by Isamar Avila MD at [facility] CARDIAC CATHERIZATION HEART CATHETERIZATION 2016 [place] (R) leg Current Medications: Current Outpatient Prescriptions: ALPRAZolam (XANAX) 0.25 mg tablet, Take 1 tablet by mouth as Needed for Anxiety (TAKE ONE TABLET PRIOR TO 30 MINUTES PRIOR TO APHERESIS TREATMENT.)., Disp: 30 tablet, Rfl: 0 aspirin EC 81 mg tablet, Take 1 Tab by mouth daily. Take with food., Disp: 90 Tab, Rfl: 3 carvedilol (COREG) 6.25 mg tablet, Take 0.5 [...] for Pain (back pain), Disp: , Rfl: isosorbide mononitrate SR (IMDUR) 30 mg tablet, [...] heparin (porcine) 30,000 units/30 mL infusion (SYR) ([facility]), 1, 500 Units/hr, Apheresis, TITRATE, Wesley Fraire MD, Stopped at 11/11/17 1002 Allergies: Allergies Allergen Reactions Garlic RASH and [...] ROS: Review of Systems Constitutional: Positive for chills and unexpected weight change. HENT: Positive for dental problem, mouth sores, rhinorrhea and tinnitus. Cardiovascular: Positive for chest pain. Gastrointestinal: Positive for constipation and diarrhea. Genitourinary: Positive for penile pain and urgency. Skin: Positive for color change. Neurological: Positive for dizziness, speech difficulty, weakness and light- headedness. Hematological: Bruises/bleeds easily. Psychiatric/Behavioral: Positive for confusion. All other systems reviewed and are negative. PE: Vitals: 11/11/17 1300 BP: 127/75 Pulse: 67 Resp: 16 Temp: 36.8 C (98.2 F) SpO2: 100% 78.2 kg (172 lb 6.4 oz) Body mass index is 25.46 kg/(m^2). Physical Exam Constitutional: Pt. is oriented to person, place, and time and well-developed, well-nourished, and in no distress. HENT: Head: Normocephalic and atraumatic. Eyes: Conjunctivae and EOM are normal. Pupils are equal, round, and reactive to light. Sclerae jaundiced. Neck: Normal range of motion. Neck supple. [...] He exhibits no edema, tenderness or deformity. Bilateral lower extremity edema. Neurological: Pt. is alert and oriented to person, place, and time. Gait normal. Skin: Skin is warm and dry. No rash noted. No erythema. Psychiatric: Affect and judgment normal. Assessment: - Mild to moderate, active, ulcerative pancolitis since 1996: He will increase the dose of Lialda to4 tablets a day. He will sign up for patient assistance program at [facility] to receive the medication. He will be prescribed with Uceris 9 g daily for 3 months. -Colon cancer screening in the setting of ulcerative pancolitis since 1996: He will be scheduled to have a colonoscopy with random 4-quadrant biopsies [facility]. -Primary sclerosing cholangitis: He is seeing one of our transplant warehouse delivery manager here at [facility]. -Anemia: Iron panel, folic acid, vitamin B12 will be checked. -Bone health: 1. He will be scheduled to have a DEXA scan performed. He had rib fracture. He is still taking steroids for itching and for flareups of ulcerative colitis intermittently. This needs to be discontinued. 2. The vitamin D level will be checked. 3. He will be taking 1500 mg of calcium on a daily basis. 4. He would be taking at least 800 international units of vitamin D daily. This needs to be adjusted if he is vitamin D deficient. -Health maintenance: 1. His vaccination records need to be obtained. He is up-to-date on pneumonia vaccine and influenza vaccination. He will bring us a copy of his vaccination records. 2. Colorectal cancer screening and surveillance: He is up-to-date. He is due for a colonoscopy in December 2017. -Follow-up in 4-6 weeks. Total face to face time spent with patient: 50 minutes with >50% of that time spent counseling the patient on medications, prior study results related to symptoms, differential diagnosis, and options regarding the plan of care. Plan: As above Alina Torres MD 11/11/17 in this encounter Plan of Treatment Not [...] Interface, Radiant Results - 12/09/2017 12:51 PM INGREDIENT SCALER HELPER DEXA BONE MINERAL DENSITY SCAN: CLINICAL HISTORY: [...] % Specimen Performing Laboratory Blood MAIN LAB [address] [place] [id number] FOLATE, SERUM (11/11/2017 2:32 PM) Component Value Ref Range Serum Folate 11.3Comment: NOTE NEW REFERENCE RANGES >3.9 NG/ML Specimen Performing Laboratory Blood MAIN LAB [address] [place] [address] 25-OH VITAMIN D (D2 + D3) (11/11/2017 2:32 PM) Component Value Ref Range Vitamin D(25-OH)Total 20.7 (L) 30 - 80 NG/ML Specimen Performing Laboratory Blood MAIN LAB [address] [place] [id number] VITAMIN B12 (11/11/2017 2:32 PM) Component Value Ref Range Vitamin B12 >1500 (H) 180 - 914 PG/ML Specimen Performing Laboratory Blood MAIN LAB [address] [place] [address], [place] [address] in this encounter Visit Diagnoses Diagnosis Iron deficiency - Primary Iron deficiency anemia, unspecified Vitamin D deficiency Unspecified vitamin D deficiency Ulcerative colitis with complication, unspecified location (HCC) supervisor intermediates systemic steroid user History of fracture Personal history of traumatic fracture
--- OUTSIDE RECORDS SUMMARY | 2018-01-24 13:46 | External Medical Summary | Encounter Summary ---
:1960 Author Organization [facility] Address [address] [place] [address] Phone Care Team Providers Name Role Phone Seferino Portillo MD Unavailable Pippa Neal Unavailable Unavailable Seferino Portillo MD Unavailable Tia Cunha MD Unavailable Pratibha Blandon LPN Unavailable Unavailable Carrie Ferrer RN Unavailable Unavailable Didi Duarte RN Registered Nurse Unavailable Tiffani Gil RN Unavailable Unavailable Frank Edwards MD Primary Care Provider Reason for Visit Reason Comments Lab Results W/medication Changes Encounter Details Date Type Department Care Team Description 10/29/2017 Telephone [facility] for [facility], Lab Results W/medication Transplantation-Liver RN Changes Transplant Hep [phone] [address] [facility] (Fax) [place] [address] Social History Tobacco Use Types Packs/Day Years [...] Telephone Encounter - Abram Sun RN - 10/29/2017 8:39 AM CSTContacted pt and PCP' office to inform both that pt is in need of Hep A and B vaccination series.in this encounter Plan of Treatment Not on fileas of this encounter Visit Diagnoses Not on filein this encounter
--- OUTSIDE RECORDS SUMMARY | 2018-01-24 13:46 | External Medical Summary | Encounter Summary ---
:1960 Author Organization [facility] Address [address] [place] [address] [place] [address] Phone Care Team Providers Name Role Phone Seferino Portillo MD Unavailable Pippa Neal Unavailable Unavailable Seferino Portillo MD Unavailable Tia Cunha MD Unavailable Pratibha Blandon LPN Unavailable Unavailable Carrie Ferrer RN Unavailable Unavailable Didi Duarte RN Registered Nurse Unavailable Tiffani Gil RN Unavailable Unavailable Frank Edwards MD Primary Care Provider Encounter Details Date Type Department Care Team Description 11/01/2017 Documentation [facility] Nikki Medrano [address] [place] [address] Social History Tobacco Use Types Packs/Day Years [...] this encounter Progress Notes Nikki Medrano - 11/01/2017 2:02 PM CSTThe Prior Authorization for [employer] was approved for Juan Luis Urias from 11/01/17 to 11/01/18. The copay is $ 483.64. Juan Luis Urias has stated this copay is not affordable. Pharmacy will work on obtaining medication assistance. Pharmacy will continue to follow and will submit the application once I receive the patients' proof of income. [facility] Patient Advocate in this encounter Plan of Treatment Not on fileas of this encounter Visit Diagnoses Not on filein this encounter
--- OUTSIDE RECORDS SUMMARY | 2018-01-24 13:46 | External Medical Summary | Encounter Summary ---
:1960 Author Organization [facility] Address [address] [facility] [address] [place] [address] Phone Care Team Providers Name Role Phone [...] Date Type Department Care Team Description 10/29/2017 Pharmacy Visit [facility] [address] [place] [address] Social History Tobacco Use Types Packs/Day Years [...]
--- OUTSIDE RECORDS SUMMARY | 2018-01-24 13:47 | External Medical Summary | Encounter Summary ---
:1960 Author Organization [facility] Address [address] [place] [address] Phone Care Team Providers Name Role Phone Seferino Portillo MD Unavailable Pippa Neal Unavailable Unavailable Seferino Portillo MD Unavailable Tia Cunha MD Unavailable Pratibha Blandon LPN Unavailable Unavailable Carrie Ferrer RN Unavailable Unavailable Didi Duarte RN Registered Nurse Unavailable Tiffani Gil RN Unavailable Unavailable Frank Edwards MD Primary Care Provider Reason for Referral Consult, Test & Treat Status Reason Specialty Diagnoses / Referred By Referred To Procedures Contact Contact No Auth Specialty Gastroenterology Diagnoses Primary sclerosing cholangitis Ulcerative pancolitis without complication (HCC) Ulcerative Colitis Norbert Damico, Needed Services MD Laura Montoya, DO Required [address] [place] [address] [place], [place] [address] [place] [address] [place], Phone: [phone] Phone: Radiology Services Status Reason Specialty Diagnoses / Procedures Referred By Referred To Contact Contact New Request Radiology Diagnoses Primary sclerosing cholangitis Ulcerative pancolitis without complication (HCC) Letha Damico MRI ABD/MRCP WO/W MD Lindsay [address] [place] [address] Reason for Visit Reason Comments PSC Cirrhosis Encounter Details Date Type Department Care Team Description 10/28/2017 Office Visit Center for Lindsay Damico, Primary sclerosing cholangitis (Primary Dx); Transplantation-Hepat MD Ulcerative pancolitis without complication (HCC); [facility] [address] [facility] Encounter for observation for other suspected diseases and conditions ruled out ; [address] [place], [place] High serum lipoprotein X; [place] [address] Peripheral vascular disease (HCC); TRANSPLANTATION [phone] Alcohol abuse; [place], [place] Coronary artery disease involving coronary bypass graft of [place] heart without angina pectoris [id number] Social History Tobacco Use Types Packs/Day Years [...] Vital Sign Reading Time Taken Blood Pressure 145/75 10/28/2017 1:41 PM ELECTRICAL CAD TECHNICIAN Pulse 76 10/28/2017 1:41 PM ELECTRICAL CAD TECHNICIAN Temperature 36.1 C (97 F) 10/28/2017 1:41 PM ELECTRICAL CAD TECHNICIAN Respiratory Rate 16 10/28/2017 1:41 PM ELECTRICAL CAD TECHNICIAN Oxygen Saturation 99% 10/28/2017 1:41 PM ELECTRICAL CAD TECHNICIAN Inhaled Oxygen Concentration - - Weight 75.4 kg (166 lb 3.2 oz) 10/28/2017 1:41 PM ELECTRICAL CAD TECHNICIAN Height 175.3 cm (5' 9") 10/28/2017 1:41 PM ELECTRICAL CAD TECHNICIAN Body Mass Index 24.54 10/28/2017 1:41 PM ELECTRICAL CAD TECHNICIAN in this encounter Functional Status Functional Status [...] of this encounter Instructions Patient Instructions - Abram Sun RN - 10/28/2017 2:00 PM CST10/28/[address] Damico Schedule Referral to Dr. Laura Toussaint in GI for Ulcerative colitis MRI/MRCP on the if possible Labs RTC 6 months Patient instructions I will get your records from [facility] I will get your EGD and colon reports from Dr. Arreguin You should be getting a colonoscopy every year with biopsies due to your ulcerative colitis Dr. Damico does not feel that you are a good candidate for liver transplant MRI abdomen with and without contrast I will refer you to Dr. Laura Toussaint for your Ulcerative Colitis Please quit all alcohol intake. This is not good for your liver For you confusion, you can take Zinc 220mg twice a day. You can also try the xifaxan again to see if that works If you do not contact me, I cannot help you! [facility] in this encounter Progress Notes Lindsay Damico MD - 10/28/2017 2:00 PM CSTFormatting of this note may be different from the original. Date of Service: 10/28/2017 Subjective: Juan Luis Urias is a 57 y.o. male presenting for evaluation of liver disease. History of Present Illness Juan Luis Urias is a 57 y.o. 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 Pt presents with his Mom to clinic. Outside records including Care Everywhere ( [facility]) and internal records are reviewed. Pt is a good, but not forthcoming, historian. Patient first reports being told of liver disease in 2003. At that time, he reports being diagnosedwith PSC based on both MRCP and ERCP. He additionally mentions that he was told he had hepatitis C and 2000 based on screening; however, he never required treatment as he "spontaneously clear to". Hehas not had any episodes of cholangitis. Last liver biopsy was in 2004 at [facility] in [place], consistent with PSC cirrhosis, per report. He reports being initially evaluated and listed at [facility] [id number] or 2007. He reports being status 7 currently secondary to lifelong dual antiplatelet therapy on Plavix. He has always maintained a low meld. He was additionally evaluated at [facility], and sounds as if EtOH counseling was mandated. He denies hx of ab pain, N/V, BRBPR, melena, or fluid retention. He does report some episodes of confusion, and states he has a prescription at home for lactulose, but is unable to take it secondary to uncontrolled UC. No RF for HCV, including blood transfusion before 1989, unprofessionally placed tattoos, IVDA, intranasal cocaine use, nor high risk sexual behavior. He reports undergoing routine ERCPs in [place], for unclear reasons, the records of which are not available for review. He reports his last ERCP being in NovemberDecember 2015. His last colonoscopy was January 2016, revealing pancolitis with moderate to severe activity and an associated small polyp/pseudopolyp (unknown path). He reports taking only Aldara on a as needed basis. He reports having approximately 8 flares per year. He seems unaware that he needs surveillance biopsies yearly and better control of his active ulcerative colitis. He reports being on Remicade briefly in 2007. He was last seen at [facility]'s transplant center in December 2016. His last MRCP was November 2015, demonstrating debris in the common hepatic duct; stable common bile duct narrowing; lobulated contour to the liver. Last imaging was complete abdominal ultrasound with Doppler December 2016, demonstrating thick walled intra-and extrahepatic bile ducts with the appearance of sludge and stones; portal hypertension; common bile duct measuring 1.0 cm. He has not had recent upper endoscopy. He reports continued alcohol use, claiming that he has been told that a moderate amount of alcohol is okay, despite being actively listed in the past for liver transplantation. He currently consumes one half to one beer a few times per week, and equates this to "just drinking some mouthwash". No FH liver disease nor autoimmune disease. Past Medical History: Past Medical History: Diagnosis Date CAD (coronary artery disease) 02/18/2015 CAD (coronary artery disease), [place] coronary artery 02/18/2015 12/25/2014 - Stress Test: Abnormal MPI with evidence of infarct in the RCA territory. Preserved LV function and absence of stress induced myocardial cavity dilation. [facility] 03/11/17- Cardiac catheterization, left main had an [...] cardiomyopathy 05/13/2017 PAD (peripheral artery disease) ([facility]) PE (pulmonary embolism) coumadin anticoagulation Primary sclerosing cholangitis PSC (primary sclerosing cholangitis) 02/18/2015 S/P CABG (coronary artery bypass graft) [facility] Type 2 diabetes mellitus (HCC) 02/18/2015 Surgical History: Past Surgical History: Procedure Laterality Date CORONARY ARTERY BYPASS GRAFT 08/20/2010 quad; with bypass angiography SURGERY 12/2010 right carotid endarterectomy CORONARY STENT PLACEMENT 01/06/2012 x1 PERCUTANEOUS CORONARY INTERVENTION N/A 03/20/2016 Percutaneous Coronary Intervention performed by Tino Durbin MD at [facility] PERCUTANEOUS CORONARY INTERVENTION N/A 03/11/2017 Possible Percutaneous Coronary Intervention performed by Isamar Avila MD at [facility] PERCUTANEOUS CORONARY INTERVENTION N/A 04/09/2017 Percutaneous Coronary Intervention to Saphenous Vein Graft, Right Coronary Artery performed by Isamar Avila MD at [facility] PERCUTANEOUS CORONARY INTERVENTION N/A 04/09/2017 Percutaneous Coronary Intervention performed by Isamar Avila MD at [facility] [facility]NIC[facility] PERCUTANEOUS CORONARY INTERVENTION N/A 05/13/2017 Possible Percutaneous Coronary Intervention performed by Isamar Avila MD at [facility] [facility]NICIAN PERCUTANEOUS CORONARY INTERVENTION N/A 09/29/2017 Possible Percutaneous Coronary Intervention performed by Isamar Avila MD at [employer] [facility] TECHNICIAN CARDIAC CATHERIZATION Social History: Social History Social History Marital status: Spouse name: N/A Number of children: N/A Years of education: N/A Occupational History Not on file. Social History Main Topics Smoking status: Former Smoker Packs/day: 0.25 Years: 0.50 Types: Cigarettes Quit date: 11/15/1975 Smokeless tobacco: Former User Types: Chew Quit date: 11/15/2010 Alcohol use 4.8 - 5.4 oz/week 4 - 5 Cans of beer, 4 Standard drinks or equivalent per week Drug use: No Sexual activity: Not on file Other Topics Concern Not on file Social History Narrative Family History: Family History Problem Relation Age of Onset Hypertension Mother Heart Attack Father Diabetes Father Stroke Father Hypertension Sister Diabetes Brother Review of Systems A complete 10 point review of systems was asked and answered in the negative unless specifically commented upon in the HPI Objective: ALPRAZolam (XANAX) 0.25 mg tablet Take 1 [...] tablet Take 20 mEq by mouth daily. Vitals: 10/28/17 1341 BP: 145/75 Pulse: 76 Resp: 16 Temp: 36.1 C (97 F) TempSrc: Oral SpO2: 99% Weight: 75.4 kg (166 lb 3.2 oz) Height: 175.3 cm (69") Body mass index is 24.54 kg/(m^2). Physical Exam Vitals reviewed. Constitutional: Well-developed, well-nourished, in no apparent distress. HEENT: Normocephalic. + scleral icterus. Moist oral mucosa. Dentition fair Neck/Lymph: Normal ROM, supple. No thyromegaly. No lymphadenopathy Cardiac: Sternotomy; regular rate and rhythm. No overt murmurs Respiratory: Clear to auscultation bilaterally. No wheezes or rales GI: Abdomen soft, non-distended, non-tender. BS present. No shifting dullness. No overt hepatosplenomegaly. Skin: Skin is warm and dry. No rash noted. No jaundice. + spider nevi noted. No palmar erythema Peripheral Vascular: No lower extremity edema. 2+ pulses in all extremities Musculoskeletal: ROM intact, borderline muscle bulk Psychiatric: Normal mood and affect. Behavior is normal. Neuro: No asterixis, no tremor Labs and Diagnostic tests: CBC w/Diff Lab Results Component Value Date/Time WBC 11.4 (H) 10/30/2017 04:07 AM RBC 3.47 (L) 10/30/2017 04:07 AM HGB 9.6 (L) 10/30/2017 04:07 AM HCT 28.8 (L) 10/30/2017 04:07 AM MCV 83.0 10/30/2017 04:07 AM MCH 27.7 10/30/2017 04:07 AM MCHC 33.4 10/30/2017 04:07 AM RDW 19.5 (H) 10/30/2017 04:07 AM PLTCT 186 10/30/2017 04:07 AM MPV 11.4 (H) 10/30/2017 04:07 AM Lab Results Component Value Date/Time NEUT 77 08/24/2016 06:15 AM ANC 5.30 08/24/2016 06:15 AM LYMA 10 (L) 08/24/2016 06:15 AM ALC 0.70 (L) 08/24/2016 06:15 AM BHARAT 11 08/24/2016 06:15 AM AMC 0.80 08/24/2016 06:15 AM EOSA 2 08/24/2016 06:15 AM AEC 0.20 08/24/2016 06:15 AM BASA 0 08/24/2016 06:15 AM ABC 0.00 08/24/2016 06:15 AM Comprehensive Metabolic Profile Lab Results Component Value Date/Time NA 132 (L) 10/30/2017 04:07 AM K 3.7 10/30/2017 04:07 AM CL 100 10/30/2017 04:07 AM CO2 24 10/30/2017 04:07 AM GAP 8 10/30/2017 04:07 AM BUN 26 (H) 10/30/2017 04:07 AM CR 1.23 10/30/2017 04:07 AM GLU 102 (H) 10/30/2017 04:07 AM GLU 113 10/01/2017 GLU 144 10/01/2017 Lab Results Component Value Date/Time CA 8.7 10/30/2017 04:07 AM PO4 3.2 08/24/2016 06:15 AM ALBUMIN 2.8 (L) 10/28/2017 11:55 AM TOTPROT 5.8 (L) 10/28/2017 11:55 AM ALKPHOS 713 (H) 10/28/2017 11:55 AM AST 107 (H) 10/28/2017 11:55 AM ALT 82 (H) 10/28/2017 11:55 AM TOTBILI 8.2 (H) 10/28/2017 11:55 AM GFR >60 10/30/2017 04:07 AM GFRAA >60 10/30/2017 04:07 AM MELD-Na score: 20 at 10/30/2017 4:07 AM MELD score: 16 at 10/30/2017 4:07 AM Calculated from: Serum Creatinine: 1.23 MG/DL at 10/30/2017 4:07 AM Serum Sodium: 132 MMOL/L at 10/30/2017 4:07 AM Total Bilirubin: 8.2 MG/DL at 10/28/2017 11:55 AM INR(ratio): 1.0 at 10/29/2017 7:45 AM Age: 57 years Imaging: Reviewed as above Procedures: Liver biopsy (OSH) 2004- PSC cirrhosis. No report available. EGD: no recent Colonoscopy (OSH) 01/2016- pancolitis with moderate to severe activity and an associated small polyp/pseudopolyp (unknown path). Assessment and Plan: PSC Cirrhosis: Relatively uncomplicated disease history with compensated disease and low MELD; no episodes of cholangitis/bacteremia, per report; unclear why he has undergone "routine" ERCPs. - Obtain outside ERCPs. - Updated MELD. - Updated MR/MRCP to assess for dominant stricture. In general, ERCP is best avoided in PSC d/t riskfor cholangitis/bacterial translocation. He does have a higher risk for cholangiocarcinoma; however,there are no guidelines for screening in this population. He is s/p cholecystectomy (also at risk for gb carcinoma). Liver Transplant Candidacy: not a transplant candidate. Several issues. I did discuss this patient with his transplant physician at [facility]. He is Status 7 there for CAD and PAD on DAP therapy, although I do not see an endpoint in this regard. It sounds as if he was mandated EtOH counseling by [facility], which he was not interested. He has very concerning psychosocial factors, including his lack of insight into his EtOH use; also lack of socialsupport. Medically, in addition to prohibitive CAD and PAD (continually undergoing PCI and planned stenting of LE with significant claudication, unable to walk more than 50 feet) related to lipoproteinX, he has very uncontrolled UC. He is not up to date on dysplasia surveillance, and I would not be surprised if he required colectomy in the near future. This was discussed in detail with pt and family member. I would not pursue OLT evaluation in this patient at this intuition. He has un remedial barriers to transplantation. We had a long discussion about EtOH use. The recommended maximum dally intake of EtOH for females is1 drink/day or 7 drinks/week; for males, 2 drinks/day or 14 drinks/week; a drink=12oz beer, 1oz hard liquor, 4 oz wine. With any underlying liver disease, EtOH should be avoided all together. In agreement that he should establish with an alcohol support group/private counselor or therapist/attend rehab to achieve and maintain sobriety. He declined meeting with transplant SW today. Hepatocellular Cancer Screening: due. - Recommend hepatoma screening q6-12 months with either abdominal ultrasound or contrasted, cross-sectional imaging. Ascites: none Hepatic Encephalopathy: suggested by history. Unable to take lactulose 2/2 uncontrolled UC. - Rifaximin BID (pt states he has some of this at home too). - Recommend strict avoidance of medications such as narcotics, sedatives and sleep aids. Low dose Benadryl PRN or melatonin can be used for insomnia, if needed. Esophageal Varices: unknown. He is on Carvedilol (for HTN?). - Recommend repeating an upper GI endoscopy now (at time of colonoscopy) . If evidence of /large esophageal varices, would recommend esophageal varix band ligation or the initiation of a [id number]-webjybt (carvedilol or propranolol). If band ligation is performed, please continue to repeat until eraditation of varices. Kidney Health: normal renal function. - All patients with liver disease should avoid the use of Non-steroidal Anti- Inflammatory (NSAID) medications as they can cause significant injury to the kidneys in this population. Kidd-Ulcerative Colitis: - Referral to GI colleagues (Laura Toussaint). - He is overdue for dysplasia surveillance. Understand this may be of limited value in the setting of mod-severely active disease. - We did discuss other therapies for IBD, including biologic therapy (on Ernst in the past). He needsto achieve and maintain remission. - Low roughage (but not low fiber) diet. Immobility/Frailty: at risk. Very limited mobility d/t claudication. Sedentary lifestyle. Borderlinemuscle mass already. Nutrition: As with most patients with chronic liver disease, he is at risk for a significant degree of protein malnutrition. He additionally has concomitant, uncontrolled kidd UC. Dicussed need to change dietary habits to improve overall protein balance. Discussed the importance of eating between 1.2-1.5g/kg/ daylean protein such as plant-based proteins (soy, legumes, nuts), dairy-based proteins (cheese, milk, yogurt), white meat chicken or pork, fish, and eggs. Continue to follow a sodium restricted (<2g sodium diet), heart-healthy, Mediterranean style diet. It is best to minimize the intake of carbohydrates and sugars, to avoid obesity. - Strongly encourage protein supplements 2-3 times daily (Boost, Ensure, Redwood Instant Milk, etc.) between meals, or 5-6 times daily for meal replacement, to meet protein and caloric intake. - Recommend a bedtime snack with protein and complex carbohydrate to minimize risk of muscle catabolism overnight. Routine Health Care in Patient with Chronic Liver Disease: - We recommend screening for hepatitis A and B, and vaccination if not immune. - All patients with liver disease are at an increased risk for osteoporosis. We strongly recommend screening for Vitamin D deficiency with aggressive supplementation/replacement, as indicated. Screening for all fat soluble vitamin deficiencies should be performed in those patients with cholestatic liver disease. - Baseline DEXA scan should be performed to evaluate for decreased bone mineral density. If present,Ca/Vit D +/- bisphosphonate therapy should be considered.Follow up DEXA scans shall be based on prior scans as well as therapies. It is not uncommon for our patients to be referred to an Networker/bone health specialist. - The preferred analgesic in cirrhosis and liver disease is Tylenol, up to 2g daily. - Recommend age appropriate vaccination including yearly influenza and Pneumovax prior to OLT in cirrhotic patients. Follow Up: 6 mos Labs today: CBC, updated MELD, viral hepatitis serologies including to check immunity to Hepatitis A/B, Vit A, Vit D, Vit E, ETG. Imaging/biopsy: MR/MRCP Procedures: EGD/colon for variceal screening and UC (GI to perform). Thank you very much for the opportunity to participate in the care of this patient. If you have any further questions, please don't hesitate to contact our office. Approximately 50 minutes of non [id number] time was spent in review of patient 's clinical course to date, labs, imaging studies, procedures, surgical interventions, specialty consultations and the findings are summarized above. Lindsay Damico MD [employer] Preparersales and leasing consultant Advanced Hepatology & Liver Transplantation [facility] in this encounter Plan of Treatment Scheduled Tests Name Priority Associated Diagnoses Order Schedule MRI ABD/MRCP WO/W Routine Primary sclerosing cholangitis Expected: 10/28/2017 Ulcerative pancolitis without (Approximate), Expires: complication (HCC) 10/28/2018 Scheduled Referrals Name Priority Associated Diagnoses Order Schedule AMB REFERRAL TO Routine Primary sclerosing Ordered: 10/28/2017 GASTROENTEROLOGY cholangitis Ulcerative pancolitis without complication (HCC) as of this encounter Results ETHYL GLUCURONIDE SCREEN WITH REFLEX, URINE (10/28/2017 2:50 PM) Component Value Ref Range Ethyl Glucuronide SCRN, U Negative Reference range: Cutoff: 500 Unit: ng/mL ADDITIONAL INFORMATION This test was developed and its performance characteristics determined by [facility] in a manner consistent with CLIA requirements. This test has not been cleared or approved by the U.S. Food and Drug Administration. This test was developed and its performance characteristics determined by [facility] in a manner consistent with CLIA requirements. This test has not been cleared or approved by the U.S. Food and Drug Administration. [facility], [address] [place] [address] Specimen Performing Laboratory REFERENCE LAB ALCOHOL LEVEL (10/28/2017 2:50 PM) Component Value Ref Range Alcohol <10 MG/DL Specimen Performing Laboratory Blood MAIN LAB [address] [place] [id number] HEPATITIS C VIRAL LOAD PCR QUANT (10/28/2017 2:50 PM) Component Value Ref Range Hepatitis C PCR Quantitative HCV RNA Not Detected, <12 IU/mL <12 IU/ML Comment: The test method detects HCV viral load using the Vaz RealTime assay. Please correlate results with the clinical status of the patient. Log 10 HCV <1.08 <1.08 IU/mL Specimen Performing Laboratory Blood MAIN LAB [address] [place] [id number] HEPATITIS C AB (10/28/2017 2:50 PM) Component Value Ref Range Anti HCV NEG Specimen Performing Laboratory Blood MAIN LAB [address] [place] [id number] HEPATITIS B SURFACE AB (10/28/2017 2:50 PM) Component Value Ref Range Anti HBs <2.5 mIU/ml Comment: Hepatitis B Surface Antibody Reference Ranges >12.0 Positive 8.0-12.0Equivocal <8.0Negative Specimen Performing Laboratory Blood MAIN LAB [address] [place] [address] HEPATITIS A IGG (10/28/2017 2:50 PM) Component Value Ref Range Hepatitis A IGG NEG Note: Test type and methodology has changed.The [facility] lab has discontinued the test for Total Hep A Immunoglobulin.This test has been replaced with more specific testing.The tests for Hep A IgG and Hep A IgM are both now available and can be ordered. Specimen Performing Laboratory Blood MAIN LAB [address] [place] [address] in this encounter Visit Diagnoses Diagnosis Primary sclerosing cholangitis - Primary Cholangitis Ulcerative pancolitis without complication (HCC) Encounter for observation for other suspected diseases and conditions ruled out High serum lipoprotein X Peripheral vascular disease (HCC) Peripheral vascular disease, unspecified Alcohol abuse Alcohol abuse, unspecified Coronary artery disease involving coronary bypass graft of [place] heart without angina pectoris
--- OUTSIDE RECORDS SUMMARY | 2018-01-24 13:47 | External Medical Summary | Encounter Summary ---
:1960 Author Organization [facility] Address [address] [place] [address] Phone Care Team Providers Name Role Phone Seferino Portillo MD Unavailable Pippa Neal Unavailable Unavailable Seferino Portillo MD Unavailable Tia Cunha MD Unavailable Pratibha Blandon LPN Unavailable Unavailable Carrie Ferrer RN Unavailable Unavailable Didi Duarte RN Registered Nurse Unavailable Tiffani Gil RN Unavailable Unavailable Frank Edwards MD Primary Care Provider Encounter Details Date Type Department Care Team Description 10/28/2017 Hospital Encounter [facility] Isamar Avila MD [address] [place] [address] [address] [place] [address] [phone] Social History Tobacco Use Types Packs/Day Years [...] daily artery disease involving with meals. Take teller coronary artery of with food. teller heart with angina pectoris (HCC) chlorthalidone (HYGROTON) Take 25 mg by mouth 25 mg tablet daily. CHOLECALCIFEROL (VITAMIN Take 5,000 Units by D3) (VITAMIN D3 PO) mouth daily. clopiDOGrel (PLAVIX) 75 mg Take 1 Tab by mouth 90 Tab 3 04/11/2017 tabletIndications: Coronary daily. 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 artery disease involving teller coronary artery of teller heart with angina pectoris (HCC) pantoprazole DR (PROTONIX) Take 40 mg by mouth 40 mg tablet daily. potassium chloride (KDUR) Take 20 mEq by mouth 10 mEq tablet daily. as of this encounter Plan of Treatment Not on fileas of this encounter Results CBC (10/28/2017 11:55 AM) Component Value Ref Range White Blood Cells 3.8 (L) 4.5 - 11.0 K/UL RBC 2.93 (L) 4.4 - 5.5 M/UL Hemoglobin 8.2 (L) 13.5 - 16.5 GM/DL Hematocrit 24.2 (L) 40 - 50 % MCV 82.5 80 - 100 FL MCH 27.9 26 - 34 PG MCHC 33.8 32.0 - 36.0 G/DL RDW 20.2 (H) 11 - 15 % Platelet Count 125 (L) 150 - 400 K/UL MPV 10.4 7 - 11 FL Specimen Performing Laboratory [facility] [address] [place] [address] LIPID PROFILE (10/28/2017 11:55 AM) Component Value [...] than 130 mg/dL. Specimen Performing Laboratory [facility] [address] [place] [address] COMPREHENSIVE METABOLIC PANEL (10/28/2017 11:55 AM) Component [...] Performing Laboratory [facility] [address] [place] [address] in this encounter Visit Diagnoses Diagnosis Mixed hyperlipidemia Coronary artery disease involving teller coronary artery with unstable angina pectoris, unspecified whether teller or transplanted heart (HCC) Essential hypertension Unspecified essential hypertension Pre-procedure lab exam Pre-procedural laboratory examination
--- OUTSIDE RECORDS SUMMARY | 2018-01-24 13:47 | External Medical Summary | Encounter Summary ---
:1960 Author Organization [facility] Address [address] [place] [address] Phone Care Team Providers Name Role Phone Seferino Portillo MD Unavailable Pippa Neal Unavailable Unavailable Seferino Portillo MD Unavailable Tia Cunha MD Unavailable Pratibha Blandon LPN Unavailable Unavailable Carrie Ferrer RN Unavailable Unavailable Didi Duarte RN Registered Nurse Unavailable Tiffani Gil RN Unavailable Unavailable Frank Edwards MD Primary Care Provider Encounter Details Date Type Department Care Team Description 10/28/2017 Hospital Encounter [facility], Cholangitis [address] [place] [address] [address] [place] [address] [phone] Social History Tobacco Use Types Packs/Day Years [...] daily artery disease involving with meals. Take picayune coronary artery of with food. picayune heart with angina pectoris ([facility]) chlorthalidone (HYGROTON) Take 25 mg by mouth 25 mg tablet daily. CHOLECALCIFEROL (VITAMIN Take 5,000 Units by D3) (VITAMIN D3 PO) mouth daily. clopiDOGrel (PLAVIX) 75 mg Take 1 Tab by mouth 90 Tab 3 04/11/2017 tabletIndications: Coronary daily. artery disease involving picayune coronary artery of picayune heart with unstable angina pectoris ([facility]), Chronic liver disease, S/P CABG (coronary artery bypass graft), PAD (peripheral artery disease) ([facility]), Gastroesophageal reflux disease without esophagitis, Essential hypertension with goal blood pressure less than 130/85, Other hyperlipidemia, Accelerating angina ([facility]), Coronary artery disease involving picayune coronary artery of picayune heart with angina pectoris ([facility]) ergocalciferol (VITAMIN Take 1 capsule by D-2) [...] 03/12/2017 tabletIndications: Coronary daily. artery disease involving picayune coronary artery of picayune heart with angina pectoris (HCC) pantoprazole DR (PROTONIX) Take 40 mg by mouth 40 mg tablet daily. potassium chloride (KDUR) Take 20 mEq by mouth 10 mEq tablet daily. as of this encounter Plan of Treatment Not on fileas of this encounter Results ETHYL GLUCURONIDE SCREEN WITH REFLEX, URINE (10/28/2017 2:50 PM) Component Value Ref Range Ethyl Glucuronide SCRN, U Negative Reference range: Cutoff: 500 Unit: ng/mL ADDITIONAL INFORMATION This test was developed and its performance characteristics determined by [facility] in a manner consistent with CLIA requirements. This test has not been cleared or approved by the U.S. Food and Drug Administration. This test was developed and its performance characteristics determined by [facility] in a manner consistent with CLIA requirements. This test has not been cleared or approved by the U.S. Food and Drug Administration. [facility] [employer], [address] [facility], [place] [address] Specimen Performing Laboratory REFERENCE LAB ALCOHOL LEVEL (10/28/2017 2:50 PM) Component Value Ref Range Alcohol <10 MG/DL Specimen Performing Laboratory [facility] [address] [place] [address] HEPATITIS C VIRAL LOAD PCR QUANT (10/28/2017 2:50 PM) Component Value Ref Range Hepatitis C PCR Quantitative HCV RNA Not Detected, <12 IU/mL <12 IU/ML Comment: The test method detects HCV viral load using the Vaz RealTime assay. Please correlate results with the clinical status of the patient. Log 10 HCV <1.08 <1.08 IU/mL Specimen Performing Laboratory [facility] [address] [place] [address] HEPATITIS C AB (10/28/2017 2:50 PM) Component Value Ref Range Anti HCV NEG Specimen Performing Laboratory [facility] [address] [place] [address] HEPATITIS B SURFACE AB (10/28/2017 2:50 PM) Component Value Ref Range Anti HBs <2.5 mIU/ml Comment: Hepatitis B Surface Antibody Reference Ranges >12.0 Positive 8.0-12.0Equivocal <8.0Negative Specimen Performing Laboratory [facility] [address] [place] [address] HEPATITIS A IGG (10/28/2017 2:50 PM) Component Value Ref Range Hepatitis A IGG NEG Note: Test type and methodology has changed.The [facility] lab has discontinued the test for Total Hep A Immunoglobulin.This test has been replaced with more specific testing.The tests for Hep A IgG and Hep A IgM are both now available and can be ordered. Specimen Performing Laboratory Blood [facility] [address] [place] [address] in this encounter Visit Diagnoses Diagnosis Encounter for observation for other suspected diseases and conditions ruled out Primary sclerosing cholangitis Cholangitis Ulcerative pancolitis without complication (HCC) Admitting Diagnoses Diagnosis Cholangitis Encounter for observation for other suspected diseases and conditions ruled out Ulcerative (chronic) pancolitis without complications (HCC) Ulcerative (chronic) pancolitis without complications
--- OUTSIDE RECORDS SUMMARY | 2018-01-24 13:47 | External Medical Summary | Encounter Summary ---
:1960 Author Organization [facility] Address [address] [place] [address] Phone Care Team Providers Name Role Phone [...] Date Type Department Care Team Description 10/29/2017 [facility] [address] [place] [address] Social History Tobacco Use Types Packs/Day Years [...]
--- OUTSIDE RECORDS SUMMARY | 2018-01-24 13:47 | External Medical Summary | Encounter Summary ---
:1960 Author Organization [facility] Address [address] [place] [address] Phone Care Team Providers Name Role Phone [...] Date Type Department Care Team Description 10/29/2017 Surgery Cardiac Catheterization Isamar Sanchez MD Abdominal Aortogram Laboratory [address] with Bilateral Runoffs [address] [place] [address] [place] [phone] [phone] Social History Tobacco Use Types Packs/Day Years [...] Taken Blood Pressure 134/53 10/30/2017 7:38 AM RV REPAIR TECHNICIAN Pulse 79 10/30/2017 7:38 AM RV REPAIR TECHNICIAN Temperature 36.4 C (97.5 F) 10/30/2017 7:38 AM RV REPAIR TECHNICIAN Respiratory Rate - - Oxygen Saturation 97% 10/30/2017 7:38 AM RV REPAIR TECHNICIAN Inhaled Oxygen Concentration - - Weight 73.8 kg (162 lb 11.2 oz) 10/29/2017 7:38 AM RV REPAIR TECHNICIAN Height 175.3 cm (5' 9") 10/29/2017 7:38 AM RV REPAIR TECHNICIAN Body Mass Index 24.03 10/29/2017 7:38 AM RV REPAIR TECHNICIAN in this encounter Functional Status Functional [...] impairment: No 10/28/2017 as of this encounter Discharge Summaries Antonette Gonzalez APRN-NP - 10/30/2017 7:45 AM CSTFormatting of this note may be different from the original. Physician Discharge Summary Name: Vince Urias Date Of : 1960 Age: 57 years Admit date: 10/29/2017 Discharge date: 10/30/2017 Attending Physician: Dr. Isamar Sanchez Service: Cardiology- Interventional Physician Summary completed by: SILKE Paniagua Reason for hospitalization: worsening BLE claudication Significant PMH: Past Medical History: Diagnosis Date CAD (coronary artery disease) 02/18/2015 CAD (coronary artery disease), wales coronary artery 02/18/2015 12/25/2014 - Stress Test: Abnormal MPI with evidence of infarct in the RCA territory. Preserved LV function and absence of stress induced myocardial cavity dilation. ([facility] [place]). 03/11/17- Cardiac catheterization, left main had an [...] 02/18/2015 S/P CABG (coronary artery bypass graft) [facility] Type 2 diabetes mellitus (HCC) 02/18/2015 Allergies: Garlic; Peanut; Chlorhexidine gluconate; Sulfa (sulfonamide antibiotics); and Xifaxan [rifaximin] Admission Physical Exam notable for: palpable pulses BLE; mild LLE edema Admission Lab/Radiology studies notable for: Hgb 8.2; stable Brief Hospital Course: Mr. Urias is 57 year old male that presents to [facility] today for worsening LE claudication. He has significant past medical history of atherosclerotic vascular disease he has had2 bypass surgeries and then since that time I have performed multiple times tenting of various wales and bypass arteries. His most recent interventions [...] 08/06/17 he was brought back to the laboratory animal caretaker for AARO with BLE run off. He received a drug elutingballoon to his left SFA and stent; as well as 2 right iliac stents. He was again brought back to [facility] laboratory animal caretaker for AARO with RLE run off to [...] Problems Active Problems CAD (coronary artery disease), wales coronary artery Chronic liver disease PAD (peripheral [...] HOURS (8:00 AM - 4:30 PM): Call [phone] and asked to be transferred to your discharge attending physician. - AFTER BUSINESS HOURS (4:30 PM - 8:00 AM, on weekends, or holidays): Call [phone] and ask the slice cutting machine operator to page the on-call doctor for the discharge attending physician. Discharging attending physician: ISAMAR SANCHEZ [[id number]] Cardiac Diet Limiting unhealthy fats and cholesterol [...] Print Associated Diagnoses: Coronary artery disease involving wales coronary artery of wales heart with angina pectoris (HCC) chlorthalidone (HYGROTON) 25 mg tablet Take 25 mg by mouth daily. PRESCRIPTION TYPE: Historical Med CHOLECALCIFEROL (VITAMIN D3) (VITAMIN D3 PO) Take 5,000 Units by mouth daily. PRESCRIPTION TYPE: Historical Med clopiDOGrel (PLAVIX) 75 mg tablet Take 1 Tab by mouth daily. Qty: 90 Tab, Refills: 3 PRESCRIPTION TYPE: Print Associated Diagnoses: Coronary artery disease involving wales coronary artery of wales heart with unstable angina pectoris (HCC); Chronic liver disease; S/P CABG (coronary artery bypass graft); PAD (peripheral artery disease) ([facility]); Gastroesophageal reflux disease without esophagitis; Essential hypertension with goal blood pressure less than 130/85; Other hyperlipidemia; Accelerating angina ([facility]); Coronary artery disease involving wales coronary artery of wales heart with angina pectoris ([facility]) ergocalciferol (VITAMIN D-2) 50,000 unit [...] Print Associated Diagnoses: Coronary artery disease involving wales coronary artery of wales heart with angina pectoris (HCC) pantoprazole DR (PROTONIX) 40 mg tablet Take 40 mg by mouth daily. PRESCRIPTION TYPE: Historical Med potassium chloride (KDUR) 10 mEq tablet Take 20 mEq by mouth daily. PRESCRIPTION TYPE: Historical Med !! - Potential duplicate medications found. Please discuss with provider. Scheduled appointments: Dec 15, 2017 10:30 AM RV REPAIR TECHNICIAN Complete Lower Arterial Duplex with BANDAR's with [facility] Cardiology ([facility]) [address] [place], [place] [id number] Dec 15, 2017 1:00 PM RV REPAIR TECHNICIAN Left Lower Extremity Arterial Scan with [facility] Cardiology ([facility]) [address] [place], [place] [id number] Dec 15, 2017 2:30 PM RV REPAIR TECHNICIAN Office Visit with Isamar Sanchez MD [facility] Cardiology ([facility]) [address] [place] [address] [address] [facility] [address] May 05, 2018 1:40 PM CDT Return Patient with Lindsay Damico MD [facility] (T ) [address] [place] [address] For Transplantation [facility] [phone] Pending items needing follow up: follow up with Dr. Sanchez in 1 month with ABIS Signed: Antonette Gonzalez APRN-PART MAKER 10/30/2017 cc: Primary Care Physician: Frank Edwards [...] daily artery disease involving with meals. Take wales coronary artery of with food. wales heart with angina pectoris (HCC) chlorthalidone (HYGROTON) Take 25 mg by mouth 25 mg tablet daily. CHOLECALCIFEROL (VITAMIN Take 5,000 Units by D3) (VITAMIN D3 PO) mouth daily. clopiDOGrel (PLAVIX) 75 mg Take 1 Tab by mouth 90 Tab 3 04/11/2017 tabletIndications: Coronary daily. artery disease involving wales coronary artery of wales heart with unstable angina pectoris ([facility]), Chronic liver disease, S/P CABG (coronary artery bypass graft), PAD (peripheral artery disease) ([facility]), Gastroesophageal reflux disease without esophagitis, Essential hypertension with goal blood pressure less than 130/85, Other hyperlipidemia, Accelerating angina ([facility]), Coronary artery disease involving wales coronary artery of wales heart with angina pectoris ([facility]) ergocalciferol (VITAMIN Take 1 capsule by D-2) 50,000 unit capsule mouth every 7 days. escitalopram oxalate Take 20 mg by mouth (LEXAPRO) 20 mg tablet daily. evolocumab (REPATHA Inject 420mg under 3.5 mL 10/21/2017 PUSHTRONEX) INFUSOR the skin every 30 [...] 03/12/2017 tabletIndications: Coronary daily. artery disease involving wales coronary artery of wales heart with angina pectoris (HCC) pantoprazole DR [...] a bleed after ambulation. Patient escorted to [facility]. Patient to follow up with [facility] ([facility]) or on-call physician with any additional questions or concerns. All contact numbers provided. Patient and family acceptant of DC instuctions and report understanding to all information.Laura Noriega RN - 10/29/2017 7:05 AM [id number] Patient arrived on unit via ambulation accompanied [...] Assessment/Plan: Active Problems: CAD (coronary artery disease), wales coronary artery Chronic liver disease PAD (peripheral [...] artery disease) 02/18/2015 CAD (coronary artery disease), wales coronary artery 02/18/2015 12/25/2014 - Stress Test: Abnormal MPI with evidence of infarct in the RCA territory. Preserved LV function and absence of stress induced myocardial cavity dilation. ([facility] 03/11/17- Cardiac catheterization, left main had [...] 02/18/2015 S/P CABG (coronary artery bypass graft) [facility] Type 2 diabetes mellitus (HCC) 02/18/2015 Past Surgical History: Procedure Laterality Date CORONARY ARTERY BYPASS GRAFT 08/20/2010 quad; with bypass angiography SURGERY 12/2010 right carotid endarterectomy CORONARY STENT PLACEMENT 01/06/2012 x1 PERCUTANEOUS CORONARY INTERVENTION N/A 03/20/2016 Percutaneous Coronary Intervention performed by Tion Durbin MD at [facility] PERCUTANEOUS CORONARY INTERVENTION N/A 03/11/2017 Possible Percutaneous Coronary Intervention performed by Isamar Sanchez MD at [facility] PERCUTANEOUS CORONARY INTERVENTION N/A 04/09/2017 Percutaneous Coronary Intervention to Saphenous Vein Graft, Right Coronary Artery performed by Isamar Sanchez MD at [facility] PERCUTANEOUS CORONARY INTERVENTION N/A 04/09/2017 Percutaneous Coronary Intervention performed by Isamar Sanchez MD at [facility] PERCUTANEOUS CORONARY INTERVENTION N/A 05/13/2017 Possible Percutaneous Coronary Intervention performed by Isamar Sanchez MD at [facility] PERCUTANEOUS CORONARY INTERVENTION N/A 09/29/2017 Possible Percutaneous Coronary Intervention performed by Isamar Sanchez MD at [facility] CARDIAC CATHERIZATION Family history reviewed; non-contributory Social [...] (10/29 738) Height: 175.3 cm (69") (10/29 738) BP: (114-145)/(65-75) Temp: [36.1 C (97 F)-37.1 [...] Pertinent radiology reviewed. Anila Carolina APRN Pager [phone] this encounter Procedure Notes Isamar Sanchez MD - 10/29/2017 4:19 PM CSTAssociated Order(s): [facility] CARDIAC CATHETERIZATION REPORT Page 3 VINCE Ordonez : 1960 KU#: [id number] [facility] MR #/Billing ID #: [id number] / [id number] DATE: 10/29/2017 MANAGER CARGO: Isamar Sanchez MD DICTATING PROVIDER: Ezekiel Burnham MD REFERRING PHYSICIAN: Vladimir Munson MD INTERVENTIONAL PASSPORT SUPPORT ASSOCIATE: Ezekiel Burnham MD. PROCEDURES PERFORMED: 1. Right [...] well. The patient was brought in the laboratory animal caretaker in a fasting, nonsedated state. After giving the patient a total of 100 mcg of fentanyl and 4 mg of Versed, we achieved moderate conscious sedation, which was monitored and maintained throughout the procedure for a total of 120 minutes. Respiratory, hemodynamic, and neurological parameters were monitored throughout the procedure by the operators and by the laboratory animal caretaker staff. The patient is prepped and draped in sterile fashion. We exposed bilateral groins and prepped with 1% chlorhexidine, instilled a total of 20 mL of 1% lidocaine for good local anesthesia. We then gained access into the left common femoral artery using a micropuncture needle and modified Seldinger technique. We introduced a 5-Mosotho diagnostic arterial 10 cm [place] sheath with good blood flow return. We introduced a [place] Flush one 5-Mosotho catheter over an 0.035, 180 cm Storq [...] then subsequently switched for a higher size 6-Mosotho 10 cm [place] sheath on the left groin over the [...] catheter and tried to directly insert a 5-Mosotho 45 cm Destination sheath across this particularbend in the right common iliac artery, but we were unsuccessful in doing so. We then removed the 5-Mosotho Destination sheath dilator and tried to pass it over the 0.035 Storq wire that would be unsuccessful as well. We then took a 5.0 x 40 x 80 mm [place] 35 balloon over the 0.035 Storq wire system and performed angioplasty across this particular bend at the region of the overlap between the stents 13 seconds at 14 atmospheres hoping that this would make way for us to pass the sheath. We then switched out over the 0.035 Storq wire for a 6-Mosotho 45 cm Destination straight sheath, which would again not pass this particular lesion. We then introduced the same 6-Mosotho dilator and tried to pass across this lesion, which was again unsuccessful. We tried to pass a smaller 7.0 x 30 x 80 mm EverCross balloon, which would again not cross this particular bend. We had significant difficulty getting across it. We then switched for a 5-Mosotho 45 cm Shailesh flexor sheath and tried to get across this lesion and that would not work either. We were not able to track the sheath. We then removed the Anseldilator 5-Mosotho and tried to pass across this lesion and that still would not work. Keeping the 0.[address], we introduced another 0.018 x 180 cm Steelcore wire across the 5-Mosotho Shailesh sheath and got into the distal [...] a 6.0 x 40 x 150 mm [place] balloon and performed balloon angioplasty of the right external iliac artery stent for 24 seconds at 12 atmospheres, followed by another 35 seconds at 12 atmospheres todilate the segment. After this was done, we were able to pass the 5-Mosotho Shailesh sheath across thisparticular bend and gained access into the right external iliac artery with the sheath. With the tip of the sheath in place at that particular region, we introduced a 4.0 x 80 x 150 mm [place] 18 balloon and accessed the right mid to distal SFA and performed balloon angioplasty for 2 different inflations, both of which were 8 atmospheres lasting 80 to 120 seconds each. We then noticed excellent reduction in stenosis and, given the fact that we were not able to introduce a 6-Mosotho system, we decided to direct stent this [...] a 5.5 x 100 x 150 mm [place] 18 balloon for a total of 3 [...] same 5.5 x 100 x 150 mm [place] 18 balloon and performed another balloon angioplasty in the junction between these 2 stents and the common iliac arteries on the right side. The 5.5 balloon was inflated for 8 atmospheres for a total of 50 seconds, following which we removed the Storq wire and the balloon together and switched out for a 5-Mosotho 11 cm Destination sheath. Manual compression method [...] a 5.5 x 100 x 150 mm [place] 18 balloon with 6 atmospheres inflations with excellent angiographic results. 3. Aspirin and Plavix will be used for dual antiplatelet therapy. Isamar Sanchez MD PCG/MedQ /[id number] p cc: - Vladimir Munson MDin this encounter Plan of Treatment Not on fileas of this encounter Procedures Procedure Name Priority Date/Time Associated Diagnosis Comments PROCEDURE 11/07/2017 2:28 PM Results for this RECORD-SCAN RV REPAIR TECHNICIAN procedure are in the results section. TELEMETRY 11/07/2017 2:19 PM Results for this STRIPS-SCAN RV REPAIR TECHNICIAN procedure are in the results section. in this encounter Results PROCEDURE RECORD-SCAN (11/07/2017 2:28 PM) Narrative Ordered by an unspecified provider. TELEMETRY STRIPS-SCAN (11/07/2017 2:19 PM) Narrative Ordered by an unspecified provider. CARDIAC CATH REPORT (10/31/2017 12:29 PM) Specimen Performing Laboratory OTHER OUTSIDE LAB Procedure Note Isamar Sanchez MD - 10/29/2017 4:19 PM RV REPAIR TECHNICIAN [facility] at [facility] CARDIAC CATHETERIZATION REPORT Page 3 VINCE Ordonez : 1960 KU#: [id number] KU MR #/Billing ID #: [id number] / [id number] DATE: 10/29/2017 MANAGER CARGO: Isamar Sanchez MD DICTATING PROVIDER: Ezekiel Burnham MD REFERRING PHYSICIAN: Vladimir Munson MD INTERVENTIONAL PASSPORT SUPPORT ASSOCIATE: Ezekiel Burnham MD. PROCEDURES PERFORMED: 1. Right [...] well. The patient was brought in the laboratory animal caretaker in a fasting, nonsedated state. After giving the patient a total of 100 mcg of fentanyl and 4 mg of Versed, we achieved moderate conscious sedation, which was monitored and maintained throughout the procedure for a total of 120 minutes. Respiratory, hemodynamic, and neurological parameters were monitored throughout the procedure by the operators and by the laboratory animal caretaker staff. The patient is prepped and draped in sterile fashion. We exposed bilateral groins and prepped with 1% chlorhexidine, instilled a total of 20 mL of 1% lidocaine for good local anesthesia. We then gained access into the left common femoral artery using a micropuncture needle and modified Seldinger technique. We introduced a 5-Mosotho diagnostic arterial 10 cm [place] sheath with good blood flow return. We introduced a [place] Flush one 5-Mosotho catheter over an 0.035, 180 cm Storq [...] then subsequently switched for a higher size 6-Mosotho 10 cm [place] sheath on the left groin over the [...] catheter and tried to directly insert a 5-Mosotho 45 cm Destination sheath across this particular bend in the right common iliac artery, but we were unsuccessful in doing so. We then removed the 5-Mosotho Destination sheath dilator and tried to pass it over the 0.035 Storq wire that would be unsuccessful as well. We then took a 5.0 x 40 x 80 mm [place] 35 balloon over the 0.035 Storq wire system and performed angioplasty across this particular bend at the region of the overlap between the stents 13 seconds at 14 atmospheres hoping that this would make way for us to pass the sheath. We then switched out over the 0.035 Storq wire for a 6-Mosotho 45 cm Destination straight sheath, which would again not pass this particular lesion. We then introduced the same 6-Mosotho dilator and tried to pass across this lesion, which was again unsuccessful. We tried to pass a smaller 7.0 x 30 x 80 mm EverCross balloon, which would again not cross this particular bend. We had significant difficulty getting across it. We then switched for a 5- Mosotho 45 cm Shailesh flexor sheath and tried to get across this lesion and that would not work either. We were not able to track the sheath. We then removed the Shailesh dilator 5-Mosotho and tried to pass across this lesion and that still would not work. Keeping the 0.[address], we introduced another 0.018 x 180 cm Steelcore wire across the 5- Mosotho Shailesh sheath and got into the distal [...] a 6.0 x 40 x 150 mm [place] balloon and performed balloon angioplasty of the right external iliac artery stent for 24 seconds at 12 atmospheres, followed by another 35 seconds at 12 atmospheres to dilate the segment. After this was done, we were able to pass the 5-Mosotho Shailesh sheath across this particular bend and gained access into the right external iliac artery with the sheath. With the tip of the sheath in place at that particular region, we introduced a 4.0 x 80 x 150 mm [place] 18 balloon and accessed the right mid to distal SFA and performed balloon angioplasty for 2 different inflations, both of which were 8 atmospheres lasting 80 to 120 seconds each. We then noticed excellent reduction in stenosis and, given the fact that we were not able to introduce a 6-Mosotho system, we decided to direct stent this [...] a 5.5 x 100 x 150 mm [place] 18 balloon for a total of 3 [...] same 5.5 x 100 x 150 mm [place] 18 balloon and performed another balloon angioplasty in the junction between these 2 stents and the common iliac arteries on the right side. The 5.5 balloon was inflated for 8 atmospheres for a total of 50 seconds, following which we removed the Storq wire and the balloon together and switched out for a 5-Mosotho 11 cm Destination sheath. Manual compression method [...] a 5.5 x 100 x 150 mm [place] 18 balloon with 6 atmospheres inflations with excellent angiographic results. 3. Aspirin and Plavix will be used for dual antiplatelet therapy. Isamar Sanchez MD PCG/MedQ /[id number] p cc: - Vladimir Munson MD BASIC [...] Specimen Performing Laboratory Blood [facility] [address] [place] [address] [place] [address] CBC (10/30/2017 4:07 AM) Component Value Ref [...] - 11 FL Specimen Performing Laboratory Blood [facility] [address] [place] [address] POC ACTIVATED CLOTTING TIME (10/29/2017 1:58 PM) Component Value Ref Range Activated Clotting Time 177 s Specimen Performing Laboratory [facility] [address] [place] [address] POC ACTIVATED CLOTTING TIME (10/29/2017 1:07 PM) Component Value Ref Range Activated Clotting Time 232 s Specimen Performing Laboratory [facility] [address] [place] [address] POC ACTIVATED CLOTTING TIME (10/29/2017 11:40 AM) Component Value Ref Range Activated Clotting Time 283 s Specimen Performing Laboratory [facility] [address] [place] [address] POC ACTIVATED CLOTTING TIME (10/29/2017 11:31 AM) Component Value Ref Range Activated Clotting Time 199 s Specimen Performing Laboratory [facility] [address] [place] [address] POC ACTIVATED CLOTTING TIME (10/29/2017 11:07 AM) Component Value Ref Range Activated Clotting Time 291 s Specimen Performing Laboratory [facility] [address] [place] [address] MRSA SCREEN (10/29/2017 8:50 AM) Component Value Ref Range Battery Name MRSA SCREEN Specimen Description NASAL Special Requests NONE Culture NO MRSA ISOLATED Report Status FINAL 10/30/2017 Specimen Performing Laboratory Nasal [facility] [address] [place] [address] POC GLUCOSE (10/29/2017 7:45 AM) Component Value Ref Range Glucose, POC 109 (H) 70 - 100 MG/DL Specimen Performing Laboratory [facility] [address] [place] [address] POC PT/INR (10/29/2017 7:45 AM) Component Value Ref Range INR POC 1.0 0.8 - 1.2 Specimen Performing Laboratory MAIN LAB [address] [place] [address] in this encounter Visit Diagnoses Not on filein this encounter Admitting Diagnoses Diagnosis Claudication PVD (peripheral vascular disease) (HCC) Administered Medications Inactive Administered Medications - up to 3 most recent administrations Medication Order MAR Action Action Date Dose Rate Site aspirin EC tablet 81 mg Given 10/30/2017 07:40 RV REPAIR TECHNICIAN 81 mg 81 mg, Oral, DAILY, First dose on 10/30/17 at 0900, Until Discontinued carvedilol (COREG) tablet 3.125 mg Given 10/29/2017 16:58 RV REPAIR TECHNICIAN 3.125 mg 3.125 mg, Oral, TWICE DAILY WITH MEALS, First dose on Wed10/29/17 at 1700, Until Discontinued, Hold for heart rate < 60 bpm; systolic <100 Given 10/30/2017 07:39 RV REPAIR TECHNICIAN 3.125 mg chlorthalidone (HYGROTON) tablet 25 mg Given 10/30/2017 07:39 RV REPAIR TECHNICIAN 25 mg 25 mg, Oral, DAILY, First dose on Wed10/29/17 at 1700, Until Discontinued, Take with food. clopiDOGrel (PLAVIX) tablet 75 mg Given 10/30/2017 07:39 RV REPAIR TECHNICIAN 75 mg 75 mg, Oral, DAILY, First dose on 10/30/17 at 0900, Until Discontinued, This Medication can increase the risk of bleeding and may need to be held prior to surgery or invasive procedures. Consult physician in advance. isosorbide mononitrate SR (IMDUR) tablet 15 mg Given 10/30/2017 07:43 RV REPAIR TECHNICIAN 15 mg 15 mg, Oral, DAILY PRN, Starting Wed10/29/17 at 1231, Until 10/30/17 at 1126, chest pain or neck pain, DO NOT Crush tablets (May be cut in half) losartan (COZAAR) tablet 100 mg Given 10/29/2017 20:37 RV REPAIR TECHNICIAN 100 mg 100 mg, Oral, DAILY, First dose on Wed10/29/17 at 1330, Until Discontinued sodium chloride 0.9 % infusion Given - New Bag 10/29/2017 07:45 RV REPAIR TECHNICIAN 50 mL/hr 1,000 mL, Intravenous, at 50 mL/hr, CONTINUOUS, Starting Wed10/29/17 at 0715, Until 10/30/17 at 1126, If EF is <40%, contact CCL Charge Nurse [phone]) before initiating fluid. in this encounter
--- OUTSIDE RECORDS SUMMARY | 2018-01-24 13:47 | External Medical Summary | Encounter Summary ---
:1960 Author Organization [facility] Address [address] [place] [address] Phone Care Team Providers Name Role Phone [...] Date Type Department Care Team Description 10/28/2017 Nurse Only [facility] Familial hypercholesterolemia; Physicians - Clinical Elevated Lp(a) Pharmacology GROUND FLOOR [address] [place] [address] Social History Tobacco Use Types [...] Vital Sign Reading Time Taken Blood Pressure 125/73 10/28/2017 10:58 AM CLINICAL LABORATORY SCIENTIST Pulse 82 10/28/2017 10:58 AM CLINICAL LABORATORY SCIENTIST Temperature 37.1 C (98.8 F) 10/28/2017 10:58 AM CLINICAL LABORATORY SCIENTIST Respiratory Rate 16 10/28/2017 10:58 AM CLINICAL LABORATORY SCIENTIST Oxygen Saturation - - Inhaled Oxygen Concentration - - Weight 74.5 kg (164 lb 3.2 oz) 10/28/2017 10:58 AM CLINICAL LABORATORY SCIENTIST Height - - Body Mass Index 24.25 10/28/2017 10:58 AM CLINICAL LABORATORY SCIENTIST in this encounter Functional Status Functional Status [...] encounter Progress Notes Seferino Portillo MD - 10/28/2017 8:00 AM CSTPresent throughout patients therapy.Tabatha Escalante RN - 10/28/2017 8:00 AM [id number] Lipoprotein apheresis treatment started (see Doc Flowsheet). 0900 Patient requested alprazolam 0.[address] Portillo. Millie Bull Jennifer, RN - 10/28/2017 8:00 AM CSTPre and Post Prism , plasma, and serum labs obtained. Copies of labs from previous treatment given topatient. Lindsay Perdue RNin this encounter Plan of Treatment Not on fileas of this encounter Visit Diagnoses Diagnosis Familial hypercholesterolemia Pure hypercholesterolemia Elevated Lp(a) Other disorders of lipoid metabolism Administered Medications Inactive Administered Medications - up to 3 most recent administrations Medication Order MAR Action Action Date Dose Rate Site diphenhydrAMINE (BENADRYL) injection Given 10/28/2017 08:09 CLINICAL LABORATORY SCIENTIST 25 mg 25 mg 25 mg, Intravenous, ONCE, 1 dose, Ling 10/28/17 at 0845 heparin (porcine) 30,000 Given - New 10/28/2017 08:09 2,000 Units/hr 2 mL/ hr units/30 mL infusion (SYR) Bag CLINICAL LABORATORY SCIENTIST (KANEKA APHERESIS) 2,000 Units/hr (2 mL/hr), at 2 mL/hr, Apheresis, TITRATE DIRECTED , Starting Ling 10/28/17 at 0845, Until Ling 10/28/17 at 2044, Initiate heparin infusion at 2000 units/hr and titrate per protocol NOTE: This is a HIGH ALERT Medication. heparin (porcine) bolus for continuous inf Given 10/28/2017 08:09 CLINICAL LABORATORY SCIENTIST 2,000 Units (SYR) (KANEKA) 2,000 Units 2,000 Units, Apheresis, ONCE, 1 dose, Ling 10/28/17 at 0845, NOTE: This is a HIGH ALERT Medication in this encounter
--- OUTSIDE RECORDS SUMMARY | 2018-01-24 13:48 | External Medical Summary | Encounter Summary ---
:1960 Author Organization [facility] Address [address] [place] [address] Phone Care Team Providers Name Role Phone Seferino Portillo MD Unavailable Pippa Neal Unavailable Unavailable Seferino Portillo MD Unavailable Vladimir Munson MD Primary Care Provider Tia Cunha MD Unavailable Pratibha Blandon LPN Unavailable Unavailable Carrie Ferrer RN Unavailable Unavailable Didi Duarte RN Registered Nurse Unavailable Tiffani Gil RN Unavailable Unavailable Frank Edwards MD Primary Care Provider Encounter Details Date Type Department Care Team Description 10/26/2017 Orders Only [facility] Seferino Portillo MD Physicians - Clinical [address] [place] [address] [place] [address] [address] [facility] [place] [phone] [place] [address] Social History Tobacco Use Types [...] impairment: No 09/14/2017 as of this encounter Plan of Treatment Not on fileas of this encounter Results HDLAB RESULTS (10/01/2017) Component Value Ref Range Cholesterol 361 LDL 333 HDL 9 Triglycerides 94 Non HDL Cholesterol Apolipoprotein B 100 62 LDL-P 1,067 Small Density LDL 88 SDLDL % 26 Apoliprotein A1 <40 HDL-P <25.7 HDL2 -28 APO B/A1 RATIO LP(A) Mass 12 LP(A) Cholesterol Myeloperoxidase AB 1,079 LP PLA2 (PLAC-R) 158 CRP, High Sensitivity 23.7 Fibrinogen 651 B Type Natriuretic Peptide 1,363 AspirinWorks (Urine) Apolipoprotein E & Alleles Apolipoprotein E Specimen [id number]*2*3 [id number]*17* Factor 5 Leiden Prothrombin Gene Analysis Insulin FREE FATTY ACID 1.62 Glucose 144 Hemoglobin A1C ESTIMATED AVERAGE GLUCOSE Vitamin D(25-OH)Total 56 Uric Acid 4.9 TSH Homocysteine 9 Cystatin C, S 1.93 eGFR Non 32 eGFR 34 Creatinine 1.4 HS-OMEGA-3 INDEX 3.31 OMEGA-3 TOTAL ALPHA-LINOLENIC (ALA) DOCOSAPENTAENOIC (DPA) EICOSAPENTAENOIC (EPA) DOCOSAHEXAENOIC (DHA) OMEGA-6 TOTAL ARACHIDONIC (AA) LINOLEIC (LA) CIS-MONOUNSATURATED TOTAL SATURATED TOTAL TRANS TOTAL Sodium 137 Potassium 4.2 Chloride 105 CO2 20 Calcium 7.8 Magnesium 1.70 ALT (SGPT) 79 AST (SGOT) 93 Acid Phos,Prostatic Blood Urea Nitrogen 20 Total Bilirubin 7.4 Prostatic Specific Antigen Albumin 2.3 Total Protein 4.4 Creatine Kinase <10 TSH T4 (Total) T4-Free T3 (Total) Testosterone, Serum White Blood Cells 3.6 RBC 2.91 Hemoglobin 8.4 Hematocrit 25.9 MCV 89.0 MCH 28.9 MCHC 32.5 RDW 18.2 Platelet Count 82 Specimen Performing Laboratory [facility] [address], [address] [place] [address] HDLAB RESULTS (10/01/2017) Component Value Ref Range Cholesterol 558 LDL 509 HDL Triglycerides 167 Non HDL Cholesterol Apolipoprotein B 100 147 LDL-P 3,287 Small Density LDL 174 SDLDL % 34 Apoliprotein A1 <40 HDL-P <25.7 HDL2 APO B/A1 RATIO LP(A) Mass 31 LP(A) Cholesterol Myeloperoxidase AB 510 LP PLA2 (PLAC-R) 362 CRP, High Sensitivity 50.7 Fibrinogen 733 B Type Natriuretic Peptide 1,049 AspirinWorks (Urine) Apolipoprotein E & Alleles Apolipoprotein E Specimen [id number]*2*3 [id number]*17* Factor 5 Leiden Prothrombin Gene Analysis Insulin FREE FATTY ACID 0.42 Glucose 113 Hemoglobin A1C 4.6 ESTIMATED AVERAGE GLUCOSE 85 Vitamin D(25-OH)Total 46 Uric Acid 4.5 TSH 7.34 Homocysteine 9 Cystatin C, S 1.46 eGFR Non 48 eGFR 51 Creatinine 1.1 HS-OMEGA-3 INDEX 3.38 OMEGA-3 TOTAL ALPHA-LINOLENIC (ALA) DOCOSAPENTAENOIC (DPA) EICOSAPENTAENOIC (EPA) DOCOSAHEXAENOIC (DHA) OMEGA-6 TOTAL ARACHIDONIC (AA) LINOLEIC (LA) CIS-MONOUNSATURATED TOTAL SATURATED TOTAL TRANS TOTAL Sodium 136 Potassium 3.6 Chloride 103 CO2 24 Calcium 8.1 Magnesium 1.80 ALT (SGPT) 95 AST (SGOT) 105 Acid Phos,Prostatic Blood Urea Nitrogen 17 Total Bilirubin 8.0 Prostatic Specific Antigen Albumin 2.7 Total Protein 5.4 Creatine Kinase 12 TSH 7.34 T4 (Total) 7.34 T4-Free 0.68 T3 (Total) 2.5 Testosterone, Serum White Blood Cells 3.4 RBC 3.30 Hemoglobin 9.5 Hematocrit 29.2 MCV 88.5 MCH 28.9 MCHC 32.7 RDW 18.3 Platelet Count 121 Specimen Performing Laboratory [facility] [address], [address] [place] [address] HDLAB RESULTS (09/15/2017) Component Value Ref Range Cholesterol 404 LDL 376 HDL 12 Triglycerides 81 Non HDL Cholesterol Apolipoprotein B 100 58 LDL-P 948 Small Density LDL 106 SDLDL % 28 Apoliprotein A1 53 HDL-P <25.7 HDL2 TNP APO B/A1 RATIO 1.09 LP(A) Mass 13 LP(A) Cholesterol Myeloperoxidase AB 1,685 LP PLA2 (PLAC-R) 153 CRP, High Sensitivity 12.0 Fibrinogen 623 B Type Natriuretic Peptide 1,324 [employer]inWorks (Urine) Apolipoprotein E & Alleles Apolipoprotein E Specimen UDP1S95*2*3 [id number]*17* Factor 5 Leiden Prothrombin Gene Analysis Insulin FREE FATTY ACID 1.44 Glucose 112 Hemoglobin A1C ESTIMATED AVERAGE GLUCOSE Vitamin D(25-OH)Total 63 Uric Acid 5.0 TSH Homocysteine 8 Cystatin C, S 1.41 eGFR Non 46 eGFR 49 Creatinine 1.0 HS-OMEGA-3 INDEX 3.14 OMEGA-3 TOTAL ALPHA-LINOLENIC (ALA) DOCOSAPENTAENOIC (DPA) EICOSAPENTAENOIC (EPA) DOCOSAHEXAENOIC (DHA) OMEGA-6 TOTAL ARACHIDONIC (AA) LINOLEIC (LA) CIS-MONOUNSATURATED TOTAL SATURATED TOTAL TRANS TOTAL Sodium 140 Potassium 3.9 Chloride 107 CO2 23 Calcium 8.0 Magnesium 1.80 ALT (SGPT) 105 AST (SGOT) 170 Acid Phos,Prostatic Blood Urea Nitrogen 23 Total Bilirubin 5.7 Prostatic Specific Antigen Albumin 2.7 Total Protein 5.0 Creatine Kinase 15 TSH T4 (Total) T4-Free T3 (Total) Testosterone, Serum White Blood Cells 2.9 RBC 3.19 Hemoglobin 9.5 Hematocrit 28.6 MCV 89.6 MCH 29.8 MCHC 33.2 RDW 15.9 Platelet Count 85 Specimen Performing Laboratory [facility] [address] [place] [address], [address] [place] [address] in this encounter Visit Diagnoses Not on filein this encounter
[2018-01-24] MEDS: BUMETANIDE DRIP 12.5 MG in CONTAINER,EMPTY 50 ML IV SCH (14:44)
[2018-01-24] MEDS: NS FLUSH BAG 500ml IV PRN (14:44)
--- NOTE | 2018-01-24 21:31 | History and Physical ---
CHIEF COMPLAINT Difficulty breathing. HISTORY OF PRESENT ILLNESS Patient is a 57-year-old male with known history of end-stage liver failure/ disease as well as extensive coronary disease with over 15 stent placements over the last few years. He was last seen in the office on 01/17/2018. At that time we had treated him with oral Lasix and potassium replacement for CHF on an outpatient basis. He noted that he had some improvement. We saw him last week on Wednesday. He was about to go to [facility] to see his typing section chief, Dr. Avila as well as his adult secondary education instructor, Dr. Cm. He came back this weekend . He called the office this morning because he was having more trouble breathing. For that reason we had him come to the hospital as a direct admission. He denies any chest pain. He is just having more difficulty with breathing. He has to sleep upright at home in the recliner. He can't sleep in bed due to shortness of breath, particularly at night. He said Humira was discontinued by his adult secondary education instructor as of Wednesday when he saw her at her [place] office. His jaundice also is getting worse and he is becoming more itchy all over. He came as a direct admit to the hospital late morning. I saw him post clinic. REVIEW OF SYSTEMS Denies chest pain, palpitations, orthopnea, PND. His leg-swelling is improving. Denies hematochezia or melena. He does complain of itching throughout. Occasional rash on his face. PAST MEDICAL HISTORY 1. Dyslipidemia. 2. Pulmonary embolism. 3. Ulcerative colitis. 4. Hypertension. 5. Depression. 6. Anxiety. 7. Hypothyroidism. 8. Cholangitis. 9. GERD. 10. End-stage liver failure/liver disease. 11. Peripheral artery disease. 12. Coronary artery disease with multiple stents. 13. Familial hyperlipidemia. 14. Significant statin intolerance. PAST SURGICAL HISTORY Multiple stent placements, as above. CURRENT MEDICATIONS 1. Aleve 220 mg one tablet q.12h. 2. Aspirin 81 mg one tablet daily. 3. Chlorthalidone 25 mg one tablet daily. 4. Vitamin D3 5000 units one tablet daily. 5. Claritin Liqui-Gel 10 mg one tablet q.24.h. 6. Coreg 3.125 mg p.o. b.i.d. 7. Cozaar 100 mg one tablet at bedtime. 8. Vitamin D 50,000 units every seven days. 9. Evolocumab 420 mg subcutaneously every 30 days. 10. Iron gluconate one tablet p.o. with breakfast. 11. Advair Diskus one puff b.i.d. 12. Folic acid one tablet daily. 13. Delano 7.5/325 mg one-half to one tablet q.6h. p.r.n. 14. Isosorbide mononitrate ER 15 mg p.o. daily p.r.n. 15. Lasix 40 mg one tablet daily. 16. Lexapro 20 mg one tablet daily. 17. Lialda 1.2 g p.o. b.i.d. 18. Loperamide 4 mg one tablet p.o. daily. 19. Multivitamin one tablet daily. 20. Zofran 4 mg p.o. q.6h. p.r.n. 21. Plavix 75 mg one tablet daily. 22. Potassium chloride ER 20 mEq one tablet daily. 23. Protonix 40 mg one tablet daily. 24. Xanax 0.5 mg p.o. b.i.d. p.r.n. anxiety. ALLERGIES Cephalexin causes significant myalgia. Rifampin. Sulfa. Peridex. Welchol. Dextrose. Pravastatin. Rifaximin. Garlic. Peanuts. SOCIAL HISTORY The patient is . He quit smoking several years ago. RECENT IMAGING CT angiogram ruled out PE a week and a half ago. PHYSICAL EXAM GENERAL: The patient is less dyspneic now. He has been on about three hours of Bumex drip prior to my actually seeing him. He is feeling better according to his sister at bedside as well as the patient. HEENT: Unremarkable. NECK: Supple. CHEST: Lungs have a few crackles at the bases. CARDIOVASCULAR: Regular rate and rhythm. No murmur, S3 or S4. ABDOMEN: Slightly distended which is his baseline. He is tender in the right upper quadrant area. Bowel sounds are normoactive. EXTREMITIES: Edema has gone down significantly. NEUROLOGIC: The patient is alert and awake. He has no focal neurologic deficits. He is oriented to place, person and time. LABORATORY WBC 8.3. Hemoglobin 10.2, stable for him. Platelet count 153, 000. Potassium 3.4. Glucose 119. Total bilirubin 12.30. AST 94, ALT 71, alkaline phosphatase 551. Liver function tests are actually much better compared to just a week and a half ago. Troponin I is 0.025. ProBNP 3630. UA is essentially normal other than 3+ bilirubin. ASSESSMENT 1. Acute congestive heart failure superimposed on chronic congestive heart failure. Type is unknown at this time. Will retrieve the patient's most recent echocardiogram done by his typing section chief, Dr. Avila from [facility] in [place], [place]. 2. Chronic hepatic failure. The patient is not a candidate for liver transplant at this time. 3. Shortness of breath due to #1 above. 4. Acute bronchitis, probably viral related. 5. Generalized jaundice due to #2 above. 6. Generalized pruritus due to #2 above. 7. Bilateral lower extremity edema, probably multifactorial. 8. Ulcerative colitis. The patient is under the care of a adult secondary education instructor. PLAN Admit patient to [facility] under the care of Dr. Frank Edwards. The patient will be started on IV Bumex drip. Will follow up electrolytes and liver function tests in the morning. Resume a few of his home medications. GIA
[2018-01-24] MEDS: PRAMIPEXOLE 0.5 MG TABLET PO SCH (21:44)
[2018-01-25] MEDS: BUMETANIDE DRIP 12.5 MG in CONTAINER,EMPTY 50 ML IV SCH (00:17)
[2018-01-25] MEDS: PANTOPRAZOLE 40 MG TABLET PO SCH (05:53)
[2018-01-25] MEDS: LEVOTHYROXINE 50 MCG TABLET PO SCH (05:53)
[2018-01-25] MEDS: NS FLUSH BAG 500ml IV PRN ×2 (05:54→21:28)
[2018-01-25] MEDS: LIDOCAINE 1% INJ 10 MG, POTASSIUM CHLORIDE INJ 10 MEQ in NS 100 ML IV SCH ×6 (05:55→23:07)
[2018-01-25] MEDS ORDERED: CARVEDILOL 3.125 MG TABLET PO SCH (08:00)
[2018-01-25] MEDS ORDERED: CHLORTHALIDONE 25 MG TABLET PO SCH (08:00)
[2018-01-25] MEDS: CLOPIDOGREL 75 MG TABLET PO SCH (08:48)
[2018-01-25] MEDS ORDERED: LOSARTAN 50 MG TABLET PO SCH (09:00)
[2018-01-25 19:45] VITALS: RESP 16
[2018-01-25] MEDS ORDERED: POTASSIUM CHLORIDE PREMIX 10 MEQ/100 ML BAG IV SCH (20:46)
[2018-01-25] MEDS: PRAMIPEXOLE 0.5 MG TABLET PO SCH (21:23)
--- NOTE | 2018-01-25 22:30 | Progress Note ---
DATE 01/25/2018 SUBJECTIVE The patient had a low potassium overnight. We have replaced that since then. He does complain of some cramps in his legs. Magnesium has been normal between 1.9 to 2.0. Denies chest pain, orthopnea, PND, hematochezia, melena. He does complain of some cramping in his leg. PHYSICAL EXAM VITAL SIGNS: Pulse 57-60, blood pressure 97/50. Blood pressure running between 88-110/65-80. GENERAL: The patient looks comfortable, in no acute distress NECK: Supple. CHEST: Lungs are clear to auscultation bilaterally. CARDIOVASCULAR: Regular rate and rhythm. ABDOMEN: Soft. The patient has epigastric discomfort and in the right upper quadrant to tenderness which is chronic. Bowel sounds are normoactive. Slightly distended. SKIN: Jaundiced throughout. EXTREMITIES: No significant edema. ASSESSMENT 1. Acute congestive heart failure superimposed on chronic congestive heart failure. Type is unknown at this time. Echocardiogram is ordered and will see what that shows. 2. Hypokalemia. 3. Chronic hepatic failure. 4. Shortness of breath due to #1 and #2 above. 5. Acute bronchitis, probably viral related. 6. Generalized jaundice due to #2 above. 7. Generalized pruritus. 8. Bilateral lower extremity edema. 9. Ulcerative colitis. PLAN Replace potassium. Most recent potassium level at 1452 hours was 3.7. Follow electrolytes in the morning. MTDD
[2018-01-26] MEDS: LEVOTHYROXINE 50 MCG TABLET PO SCH (06:06)
[2018-01-26] MEDS: PANTOPRAZOLE 40 MG TABLET PO SCH (06:06)
[2018-01-26] MEDS: CLOPIDOGREL 75 MG TABLET PO SCH (08:45)
--- NOTE | 2018-01-26 09:10 | Echocardiogram ---
DATE OF PROCEDURE January 25, [address] Frank Edwards This is a two-dimensional echo with spectral Doppler, color-flow and M-mode. It was obtained in a patient with congestive heart failure. Left atrial dimension is normal. Left ventricular end-diastolic dimension is normal. Left ventricle wall thickness is normal. LV systolic function is reduced with global hypokinesia with ejection fraction of about 25%. Right atrium is normal. Right ventricle is normal. Aortic root dimension is normal. Mitral annulus is calcified. Mitral valve leaflets are normal with mild mitral regurgitation. Aortic valve shows fibrocalcific changes with no stenosis or insufficiency. Aortic valve shows fibrocalcific changes with no stenosis. Mild aortic insufficiency is present. Tricuspid valve shows mild tricuspid regurgitation with normal estimated pulmonary artery systolic pressure of 18. Pulmonary valve shows mild pulmonary insufficiency. There is no pericardial effusion. IMPRESSION 1. Global hypokinesia with ejection fraction of about 25%. 2. Mitral annulus calcification with mild mitral regurgitation. 3. Aortic sclerosis with mild aortic insufficiency. 4. Mild tricuspid regurgitation with normal estimated pulmonary artery systolic pressure of 18. 5. Mild pulmonary insufficiency. 6. Pleural effusion is present. MTDD
--- NOTE | 2018-01-26 19:43 | Progress Note ---
DATE 01/26/2018 SUBJECTIVE Patient said he is doing well. He is not having as much shortness of breath or lightheadedness when he walks. PHYSICAL EXAM GENERAL: The patient looks comfortable, in no acute distress. NECK: Supple. CHEST: Lungs are clear. CARDIOVASCULAR: Regular rate and rhythm. ABDOMEN: Soft, distended today. Tenderness in the right upper quadrant and epigastric region is chronic. Bowel sounds are normoactive. EXTREMITIES: No cyanosis, clubbing or edema. NEUROLOGIC: Grossly intact. SKIN: Jaundiced. LABORATORY Potassium 4.0. ASSESSMENT 1. CHF 2. CAD 3. CHRONIC HEPATIC FAILURE 4. HYPOKALEMIA 5. JAUNDICE PLAN Will recheck potassium at noon. If it stays normalized will probably send patient home today on oral Lasix and potassium and follow up in the office in a week or so. MTDD
--- NOTE | 2018-01-26 20:04 | Progress Note ---
DATE 01/26/2018 NIHARIKA Mcknight is actually sitting at the edge of the bed this morning. He has no complaints. He feels good. He feels like his shortness of breath is improving. PHYSICAL EXAM GENERAL: The patient looks comfortable, in no distress. VITAL SIGNS: Blood pressure 117/65, pulse 70, respirations 16, temperature 97.0. Oxygen saturation 100% on room air. HEENT: Unremarkable. NECK: Supple. CHEST: Crackles at the bases are better. CARDIOVASCULAR: Regular rate and rhythm. ABDOMEN: Soft. EXTREMITIES: Edema has improved significantly. ASSESSMENT 1. Acute congestive heart failure superimposed on chronic congestive heart failure. This is due to systolic dysfunction with EF 25% on echocardiogram done yesterday. 2. Hypokalemia - normalized. 3. Chronic hepatic failure, end-stage liver failure. The patient is not a candidate for liver transplant. 4. Shortness of breath due to #1 above. 5. Generalized jaundice due to #3 above. 6. Generalized pruritus due to #3 above. 7. Bilateral lower extremity edema due to #1 above. 8. Ulcerative colitis. The patient is under the care of a GI physician in [place], [place]. PLAN Continue current care. Challenge patient's Bumex 1 mg IV tonight and follow potassium later and see how he does. If all goes well we anticipate dismissal tomorrow as long as potassium is stabilized. WALED
[2018-01-26] MEDS: PRAMIPEXOLE 0.5 MG TABLET PO SCH (20:33)
[2018-01-27] MEDS: PANTOPRAZOLE 40 MG TABLET PO SCH (05:53)
[2018-01-27] MEDS: LEVOTHYROXINE 50 MCG TABLET PO SCH (05:54)
[2018-01-27 07:23] VITALS: BP 123/67; PULSE 70; TEMP 97.6; O2SAT 98
[2018-01-27] MEDS: CLOPIDOGREL 75 MG TABLET PO SCH (08:16)
--- NOTE | 2018-01-27 16:50 | Discharge Summary ---
FINAL DIAGNOSIS 1. Acute congestive heart failure superimposed on chronic congestive heart failure due to severe systolic dysfunction with an EF of 25% on the echocardiogram of 01/25/2018. 2. Hypokalemia due to diuretic effect, treated and normalized. 3. Chronic hepatic failure/endstage liver failure. Patient remains a nonviable candidate for liver transplant. 4. Shortness of breath due to #1 above. 5. Generalized jaundice with pruritus due to #3 above. 6. Bilateral lower extremity edema which has decreased significantly with diuresing. 7. Ulcerative colitis. Patient is under the care of Dr. Cm, a GI specialist in [place], [place]. 8. History of coronary artery disease with multiple stent placements over the last 6-7 years. 9. Severe dyslipidemia. PHYSICAL EXAMINATION VITAL SIGNS: Stable. Patient was very dyspneic when I saw him a few days earlier. LUNGS: Crackles at the bases. ABDOMEN: Slightly distended which is his baseline, with tenderness in the right upper quadrant. EXTREMITIES: Edema 1-2+ in lower extremities, improving. LABORATORY White blood count 8.6. Hemoglobin 10.2. Potassium 3.4. Glucose 119. Total bilirubin 12.30. AST 94. ALT 71. Alkaline phosphatase 551. ProBNP is 3630. Troponin-I 0.025. HOSPITAL COURSE The patient was admitted to the general medical floor under the care of Dr. Frank Edwards. Patient aggressively was treated for the congestive heart failure with a Bumex drip which we did for about a day and a half. Patient developed severe hypokalemia; therefore that was held. Hypokalemia was as low as 2.8. This was corrected and resolved. Echocardiogram was done and read by Dr. Gaming. Report was global hypokinesia with ejection fraction of about 25% , mild tricuspid regurgitation and the presence of pleural effusion noted. Patient responded to treatment favorably. He was medically stable enough to be dismissed to home today, so he was dismissed to home on 01/27/2018. DISMISSAL MEDICATIONS 1. Plavix 75 mg one tablet daily. 2. Levothyroxine 50 mcg one tablet daily. 3. Protonix 40 mg one tablet daily. 4. Mirapex 0.5 mg one tablet at bedtime. 5. Advair Diskus 250/50 mcg one puff b.i.d. 6. Lasix 40 mg one tablet daily. 7. Potassium 20 mEq b.i.d. 8. Coreg 3.125 mg p.o. daily. 9. Chlorthalidone 12.5 mg one tablet daily. 10. Cozaar 50 mg one tablet daily. FOLLOWUP Patient will followup with Dr. Frank Edwards in one week. [facility]
== END 2018-01-27 11:05 | disposition home or self-care (01) | DRG 292 ==
LOC: MED 13:02
PROVIDERS: ADMIT Family Medicine; ATTEND Family Medicine

== ENCOUNTER 2018-01-31 15:18 | Inpatient (IN) ==
--- OUTSIDE RECORDS SUMMARY | 2018-01-31 01:32 | External Medical Summary | Encounter Summary ---
:1960 Author Organization [facility] Address [address] [place] [address] Phone Care Team Providers Name Role Phone [...] Ancillary Orders Rad Outpatient, Diagnosis unknown [address] Radiologist [place], [place] [id number] Social History Tobacco Use Types Packs/Day Years [...]
--- OUTSIDE RECORDS SUMMARY | 2018-01-31 01:32 | External Medical Summary | Encounter Summary ---
:1960 Author Organization [facility] Address [address] [place] [address] Phone Care Team Providers Name Role Phone [...] Diagnoses Shortness of breath Isamar Avila MD [facility] Echo/Pv Procedures 2-D + DOPPLER ECHOCARDIOGRAM [place] ECHO TTHRC R-T 2D W/WOM-MODE COMPL SPEC&COLR D [address] [address] Phone: Reason for Visit Reason Comments Appointment Request Encounter Details Date Type Department Care Team Description 01/21/2018 Telephone [facility] Cardiology Carine Dial, RN Appointment Request [address] [facility] [address] [place] [address] Social History Tobacco Use Types Packs/Day Years [...] Telephone Encounter - Carine Dial RN - 01/27/2018 9:36 AM CDTFormatting of this note may be different from the original. Isamar Avila MD Polley, Kaitlyn, RN Have him see some one else then and let them know the question is HF management and suitability for Humira for his GI problem. thanks Previous Messages ----- Message ----- From: Carine Dial RN Sent: 01/21/2018 11:49 AM To: Isamar Avila MD Subject: OV for heart failure Dr. Avila, Talked with patient today. He said the next time he will be up for an appointment in is 02/03. You are echo/pv that afternoon, do you want me to work him in to see you or would you rather me schedule him with someone else? I would set him up with an DIGITAL MARKETING COORDINATOR, but he is unable to come up next week. Let me know what you think. Thanks, Cris Called and spoke with patient regarding an earlier appointment. Pt states, "that's a lot of driving." Pt states he will be at for dialysis on the and would rather wait to see Dr. Avila that day. He states he is at the hospital today in [place], [place] for appointment and is scheduled for appointment on January 31 for an "infusion to get the fluid off my heart and lungs. " Will keep echoscheduled for 02/03 at 1:00 and will schedule pt to see Dr. Avila for work in at 4:00 pm.Telephone Encounter - Carine Dial RN - 2017 11:46 AM CSTCalled and spoke with patient today. He states he had recent testing done at [facility] with Dr. Munson. Will request records. CT images clouded to . Patient states he has an appointment with Dr. Portillo on 02/03, so he will already be at that dayto see a provider for OV. Echo scheduled for 02/03 at 1:00 pm.Telephone Encounter - Carine Dial RN - 01/21/2018 11:46 AM EXPLOSIVE OPERATOR FUSE----- Message from Isamar Avila MD sent at 01/20/2018 6: 51 PM EXPLOSIVE OPERATOR FUSE ----- Regarding: RE: ?New heart failure He [...] failure Dr. Avila, My name is Alina Cm and I am a partition assembly machine operator at . Mr. Urias is been started [...]
--- OUTSIDE RECORDS SUMMARY | 2018-01-31 01:32 | External Medical Summary | Clinical Summary ---
:1960 Author Organization [facility] Address [address] [place] [address] Phone Care Team Providers Name Role Phone [...] in the Health Information Management department at [phone] for further assistance in locating additional records.[facility] Allergies Active Allergy Reactions Severity Noted Date [...] mouth daily. tabletIndications: Coronary artery disease involving [place] coronary artery of [place] heart with angina pectoris (HCC) escitalopram oxalate Take 20 mg by Active (LEXAPRO) 20 mg tablet mouth daily. HYDROcodone/acetaminoph Take 0.5-1 Tabs Active en (NORCO) 7.5/325 mg by mouth every 6 tablet hours as needed for Pain (back pain) clopiDOGrel (PLAVIX) 75 Take 1 Tab by 90 Tab 3 04/11/2017 Active mg tabletIndications: mouth daily. Coronary artery disease involving [place] coronary artery of [place] heart with unstable angina pectoris (HCC), Chronic liver disease, S/P CABG (coronary artery bypass graft), PAD (peripheral artery disease) ([facility]), Gastroesophageal reflux disease without esophagitis, Essential hypertension with goal blood pressure less than 130/85, Other hyperlipidemia, Accelerating angina (HCC), Coronary artery disease involving [place] coronary artery of [place] heart with angina pectoris (HCC) carvedilol (COREG) 6.25 Take 0.5 Tabs by 180 Tab 3 04/11/2017 Active mg tabletIndications: mouth twice Coronary artery disease daily with involving [place] meals. Take with coronary artery of food. [place] heart with angina pectoris (HCC) chlorthalidone Take [...] Overview: Added automatically from request for surgery [id number] Ulcerative pancolitis (HCC) 12/09/2017 Overview: Added automatically from request for surgery [id number] Shortness of breath 09/29/2017 Chest pain 09/29/2017 Vitamin D deficiency 09/14/2017 Ischemic cardiomyopathy 05/13/2017 Unstable angina (HCC) 08/24/2016 CAD (coronary artery disease), [place] coronary artery 02/18/2015 Overview: 12/25/2014 - Stress Test: Abnormal MPI with evidence of infarct in the RCA territory. Preserved LV function and absence of stress induced myocardial cavity dilation. ([facility]). 03/11/17- Cardiac catheterization, left main had an [...] SVG to RCA PAD (peripheral artery disease) ([facility]) 02/18/2015 Overview: 1. 11/20/16 - CTA right [...] MRSA infection 02/18/2015 Ulcerative colitis with complication ([facility]) 02/18/2015 History of pulmonary embolism 02/18/2015 Overview: [...] Colon cancer screening; Coronary artery disease involving [place] coronary artery of [place] heart without angina pectoris; Systolic congestive heart [...] (s/p cath 8 MD 10/29, claudication, edema) [facility] Cardiology Isamar Avila, 8 Encounter Telephone Gastroenterology [...] Pharmacy Visit 8 Prep for Case Gastroenterology [facility] 8 Alina boston MD Nurse Only Clinical Pure hypercholesterolemia; 8 Pharmacology Elevated Lp(a) Orders Only Clinical Lindsey, 8 Pharmacology Seferino Ordonez MD Pharmacy Visit 8 Orders Only Gastroenterology [facility] Vitamin D deficiency 8 Alina boston, (Primary Dx) Documentation [place], 8 Nikki Documentation Rajni Mandujano 8 Telephone Gastroenterology [facility] Prior Authorization 8 lAina boston, (Uceris) Pharmacy Visit 7 Hospital Lab [facility] Iron deficiency 7 Encounter Alina boston MD Office Visit Gastroenterology [place], Iron deficiency (Primary Dx); 7 MD Lindsay Vitamin D deficiency; [place]ourt[place]ston Ulcerative colitis with complication, unspecified location (HCC); 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, 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; History of fracture Nurse Only Clinical Elevated Lp(a); 7 Pharmacology Familial hypercholesterolemia Pharmacy Visit 7 from Last 3 Months Immunizations Name Dates [...] Taken Blood Pressure 135/62 01/20/2018 3:32 PM SPRAYER LEATHER Pulse 79 01/20/2018 3:32 PM SPRAYER LEATHER Temperature 36.3 C (97.3 F) 01/20/2018 10:44 AM SPRAYER LEATHER Respiratory Rate 16 01/20/2018 3:32 PM SPRAYER LEATHER Oxygen Saturation 100% 01/20/2018 3:32 PM SPRAYER LEATHER Inhaled Oxygen Concentration - - Weight 73.5 kg (162 lb) 01/20/2018 3:32 PM SPRAYER LEATHER Height 179.8 cm (5' 10.8") 01/20/2018 3:32 PM SPRAYER LEATHER Body Mass Index 22.72 01/20/2018 3:32 PM SPRAYER LEATHER Plan of Treatment Health Maintenance Due Date [...] 11/07/2017 2:28 PM Results for this RECORD-SCAN SPRAYER LEATHER procedure are in the results section. TELEMETRY 11/07/2017 2:19 PM Results for this STRIPS-SCAN SPRAYER LEATHER procedure are in the results section. from [...] 2.0 Left external iliac ratio 1.6 RIGHT SPEECH LANGUAGE PATHOLOGIST PROX SYS MAX 2.01 m/s RIGHT SPEECH LANGUAGE PATHOLOGIST DIST SYS MAX 1.9 m/s RIGHT PROFUNDA [...] RIGHT PERONEAL SYS MAX 0.28 m/s LEFT SPEECH LANGUAGE PATHOLOGIST PROX SYS MAX 2.22 m/s LEFT SPEECH LANGUAGE PATHOLOGIST DIST SYS MAX 2.96 m/s LEFT PROFUNDA [...] Specimen Performing Laboratory Blood MAIN LAB [address] [place] [address] HEPATITIS B SURFACE AG (12/09/2017 3:40 PM) Component Value Ref Range HBsAg NEG Specimen Performing Laboratory Blood MAIN LAB [address] [place] [address] HEPATITIS B SURFACE AB (12/09/2017 3:40 PM) Component Value Ref Range Anti HBs <2.5 mIU/ml Comment: Hepatitis B Surface Antibody Reference Ranges >12.0 Positive 8.0-12.0Equivocal <8.0Negative Specimen Performing Laboratory Blood MAIN LAB [address] [place] [address] BONE DENSITY SPINE/HIP (12/09/2017 12:32 PM) Specimen [...] Interface, Radiant Results - 12/09/2017 12:51 PM SPRAYER LEATHER DEXA BONE MINERAL DENSITY SCAN: CLINICAL HISTORY: [...] Specimen Performing Laboratory Blood MAIN LAB [address] [place] [address] 25-OH VITAMIN D (D2 + D3) (11/11/2017 2:32 PM) Component Value Ref Range Vitamin D(25-OH)Total 20.7 (L) 30 - 80 NG/ML Specimen Performing Laboratory Blood MAIN LAB [address] [place] [address] FOLATE, SERUM (11/11/2017 2:32 PM) Component Value Ref Range Serum Folate 11.3Comment: NOTE NEW REFERENCE RANGES >3.9 NG/ML Specimen Performing Laboratory Blood MAIN LAB [address] [place] [address] VITAMIN B12 (11/11/2017 2:32 PM) Component Value Ref Range Vitamin B12 >1500 (H) 180 - 914 PG/ML Specimen Performing Laboratory Blood [facility] MAIN LAB [address] [place] [address] PROCEDURE RECORD-SCAN (11/07/2017 2:28 PM) Narrative Ordered by an unspecified provider. TELEMETRY STRIPS-SCAN (11/07/2017 2:19 PM) Narrative Ordered by an unspecified provider. from Last 3 Months
--- OUTSIDE RECORDS SUMMARY | 2018-01-31 01:32 | External Medical Summary | Continuity of Care Document ---
:1960 Author Organization [facility] Care Team Providers Name Role Phone [employer] Unavailable Unavailable Encounters Location Location Encounter Encounter Reason Attending ADM DC Status Source Details Type Number For Provider Date Date Visit EXT [id number] ESSENCE 03/12 03/12 Active The RECOVERY STROUT /2016 [facility] EMERGENCY [id number] 07/29 07/30 Active The /2016 [facility] EXT [id number] KAMAL 08/06 08/07 Active The RECOVERY SANCHEZ /2016 [facility] OUTPATIENT [id number] KAMAL 09/28 09/28 Active The SANCHEZ /2016 [facility] EXT [id number] KAMAL 09/30 09/30 Active The RECOVERY SANCHEZ /2016 [facility] OUTPATIENT [id number] SIDDHARTH 10/28 10/28 Active The JASPER /2016 [facility] EXT [id number] KAMAL 10/29 10/30 Active The RECOVERY SANCHEZ /2016 [facility] OUTPATIENT [id number] YAEL 11/11 11/11 Active The GIANLUCA-A /[address] [facility] OUTPATIENT [id number] YAEL 12/09 12/09 Active The GIANLUCA-A /[address] [facility] OUTPATIENT [id number] YAEL 12/09 Active The GIANLUCA-A [facility] OUTPATIENT [id number] KAMAL 12/15 12/15 Active The SANCHEZ /2017 [facility] O 02/03 Active The [facility] OUTPATIENT [id number] KAMAL 02/03 Active The SANCHEZ [facility]
--- OUTSIDE RECORDS SUMMARY | 2018-01-31 01:33 | External Medical Summary | Encounter Summary ---
:1960 Author Organization [facility] Address [address] [place] [address] Phone Care Team Providers Name Role Phone Seferino Portillo MD Unavailable Pippa Neal Unavailable Unavailable Seferino Portillo MD Unavailable Tia Cunha MD Unavailable Pratibha Blandon LPN Unavailable Unavailable Carrie Ferrer RN Unavailable Unavailable Didi Duarte RN Registered Nurse Unavailable Tiffani Gil RN Unavailable Unavailable Vladimir Munson MD Primary Care Provider Encounter Details Date Type Department Care Team Description 01/05/2018 Hospital Encounter [facility] Radiology [address] [place], [place] [id number] Social History Tobacco Use Types Packs/Day Years [...] deficiency, Ulcerative colitis with complication, unspecified location ([facility]) carvedilol (COREG) 6.25 mg Take 0.5 Tabs by 180 Tab 3 04/11/2017 tabletIndications: mouth twice daily Coronary artery disease with meals. Take involving [place] coronary with food. artery of [place] heart with angina pectoris ([facility]) chlorthalidone (HYGROTON) Take 25 mg by mouth 25 mg tablet daily. CHOLECALCIFEROL (VITAMIN Take 5,000 Units by D3) (VITAMIN D3 PO) mouth daily. clopiDOGrel (PLAVIX) 75 mg Take 1 Tab by mouth 90 Tab 3 04/11/2017 tabletIndications: daily. Coronary artery disease involving [place] coronary artery of [place] heart with unstable angina pectoris ([facility]), Chronic liver disease, S/P CABG (coronary artery bypass graft), PAD (peripheral artery disease) ([facility]), Gastroesophageal reflux disease without esophagitis, Essential hypertension with goal blood pressure less than 130/85, Other hyperlipidemia, Accelerating angina ([facility]), Coronary artery disease involving [place] coronary artery of [place] heart with angina pectoris ([facility]) ergocalciferol (VITAMIN Take 1 capsule [...] mg tabletIndications: daily. Coronary artery disease involving [place] coronary artery of [place] heart with angina pectoris (HCC) pantoprazole DR [...]
--- OUTSIDE RECORDS SUMMARY | 2018-01-31 01:33 | External Medical Summary | Encounter Summary ---
:1960 Author Organization [facility] Address [address] [place] [address] Phone Care Team Providers Name Role Phone [...] Department Care Team Description 01/20/2018 Office Visit [facility] Kourtney-Aslinia, Ulcerative pancolitis without complication (HCC) (Primary Dx); Physicians - Internal Alina Ordonez MD Other iron deficiency anemia; Medicine [address] Vitamin D deficiency; [address] [place], [place] Colon cancer screening; [phone] Coronary artery disease involving [place] coronary artery of [place] heart without angina pectoris; [place], [place] [phone] Systolic congestive heart failure, unspecified chronicity (HCC) [id number] [phone] Social History Tobacco Use Types Packs/Day Years [...] Taken Blood Pressure 135/62 01/20/2018 3:32 PM STATUE CARVER Pulse 79 01/20/2018 3:32 PM STATUE CARVER Temperature - - Respiratory Rate 16 01/20/2018 3:32 PM STATUE CARVER Oxygen Saturation 100% 01/20/2018 3:32 PM STATUE CARVER Inhaled Oxygen Concentration - - Weight 73.5 kg (162 lb) 01/20/2018 3:32 PM STATUE CARVER Height 179.8 cm (5' 10.8") 01/20/2018 3:32 PM STATUE CARVER Body Mass Index 22.72 01/20/2018 3:32 PM STATUE CARVER in this encounter Functional Status Functional Status [...] Hold Humira for now until seen by Herb Digger. Restart Lialda. Follow up in 6 weeks. If you have any questions or concerns related to your care please contact AMISHA Lopez via [employer] (preference) or @ [phone]. in this encounter Progress Notes Kourtney-Alina Cm [...] cancer screening: He needs to see a thread separator -Colonoscopy for colorectal cancer screenin years ago [...] cholangitis on liver biopsy sometime between 2001 [id number]:He has been started on ursodiol at that time. 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 However, hereports that he has had symptoms suggestive of chronic liver disease in year 1999. [facility]: Started on Remicade. He did not notice significant improvement with Remicade. Patient was discontinued when he went on disability. [id number]: He was treated for coronary artery disease [...] artery disease) 02/18/2015 CAD (coronary artery disease), [place] coronary artery 02/18/2015 12/25/2014 - Stress Test: Abnormal MPI with evidence of infarct in the RCA territory. Preserved LV function and absence of stress induced myocardial cavity dilation. [facility] 03/11/17- Cardiac catheterization, left main had an [...] Ischemic cardiomyopathy 05/13/2017 PAD (peripheral artery disease) ([facility]) PE (pulmonary embolism) coumadin anticoagulation Primary sclerosing cholangitis PSC (primary sclerosing cholangitis) 02/18/2015 S/P CABG (coronary artery bypass graft) [facility] Type 2 diabetes mellitus (HCC) 02/18/2015 PSH: Past Surgical History: Procedure Laterality Date CORONARY ARTERY BYPASS GRAFT 08/20/2010 quad; with bypass angiography SURGERY 12/2010 right carotid endarterectomy CORONARY STENT PLACEMENT 01/06/2012 x1 PERCUTANEOUS CORONARY INTERVENTION N/A 03/20/2016 Percutaneous Coronary Intervention performed by Tino Durbin MD at [facility] PERCUTANEOUS CORONARY INTERVENTION N/A 03/11/2017 Possible Percutaneous Coronary Intervention performed by Isamar Avila MD at [facility] PERCUTANEOUS CORONARY INTERVENTION N/A 04/09/2017 Percutaneous Coronary Intervention to Saphenous Vein Graft, Right Coronary Artery performed by Isamar Avila MD at [facility] PERCUTANEOUS CORONARY INTERVENTION N/A 04/09/2017 Percutaneous Coronary Intervention performed by Isamar Avila MD at [facility] PERCUTANEOUS CORONARY INTERVENTION N/A 05/13/2017 Possible Percutaneous Coronary Intervention performed by Isamar Avila MD at [facility] PERCUTANEOUS CORONARY INTERVENTION N/A 09/29/2017 Possible Percutaneous Coronary Intervention performed by Isamar Avila MD at [facility] CARDIAC CATHERIZATION HEART CATHETERIZATION 2016 [email or web address] (R) [...] cholangitis: He is seeing oneof our transplant trench pipe layer helper here at [facility]. 6. New onset decompensated CH 7. Coronary artery disease Plan: -I appreciate the feedback from his rn integrated to better understand the severity of the [...] should go to Dr. Frank Edwards at [facility] Total face to face time spent with patient: 50 minutes with >50% of that time spent counseling the patient on medications, prior study results related to symptoms, differential diagnosis, and options regarding the plan of care. Alina Torres MD 01/20/18 This note was, in part, completed with [employer]ietyme, a voice recognition software. Some grammatical errors [...] malignant neoplasms, colon Coronary artery disease involving [place] coronary artery of [place] heart without angina pectoris Systolic congestive heart failure, unspecified chronicity (HCC)
--- OUTSIDE RECORDS SUMMARY | 2018-01-31 01:33 | External Medical Summary | Encounter Summary ---
:1960 Author Organization [facility] Address [address] [place] [address] Phone Care Team Providers Name Role Phone [...] Description 01/03/2018 Pharmacy Visit [facility] [address] [place] [id number] Social History Tobacco Use Types Packs/Day Years [...]
--- OUTSIDE RECORDS SUMMARY | 2018-01-31 01:33 | External Medical Summary | Encounter Summary ---
:1960 Author Organization [facility] Address [address] [facility] [address] [place] [address] Phone Care Team Providers Name Role Phone [...] Sun RN Itching Transplantation-Liver Transplant Hep [address] [facility] [place] [address] Social History Tobacco Use Types Packs/Day Years [...]
--- OUTSIDE RECORDS SUMMARY | 2018-01-31 01:33 | External Medical Summary | Encounter Summary ---
:1960 Author Organization [facility] Address [address] [place] [address] Phone Care Team Providers Name Role Phone Seferino Portillo MD Unavailable Pippa Neal Unavailable Unavailable Seferino Portillo MD Unavailable Tia Cunha MD Unavailable Pratibha Blandon LPN Unavailable Unavailable Carrie Ferrer RN Unavailable Unavailable Didi Duarte RN Registered Nurse Unavailable Tiffani Gil RN Unavailable Unavailable Vladimir Munson MD Primary Care Provider Encounter Details Date Type Department Care Team Description 01/03/2018 Documentation [facility] Antonio Teel [address] [place] [address] Social History Tobacco Use Types [...] period. Drug Company Medication Assistance Contact Information: [phone] [facility] Patient Advocate in this encounter Plan of Treatment Not on fileas of this encounter Visit Diagnoses Not on filein this encounter
--- OUTSIDE RECORDS SUMMARY | 2018-01-31 01:33 | External Medical Summary | Encounter Summary ---
:1960 Author Organization [facility] Address [address] [place] [address] Phone Care Team Providers Name Role Phone [...] Type Department Care Team Description 01/20/2018 Telephone [facility] Cardiology Carine Dial, Test/procedure ([facility] [address] RN chest) [facility] [address] [place], [place] [id number] Social History Tobacco Use Types Packs/Day Years [...] and LM on nurse line today. Mr. rUias states he recently had CT chest at outside facility suggesting congestive heart failure. Patient states he would like Dr. Avila to be aware and offer further recommendation. Will review with EVELYNE.in this encounter Plan of Treatment Not on fileas of this encounter Visit Diagnoses Not on filein this encounter
--- OUTSIDE RECORDS SUMMARY | 2018-01-31 01:33 | External Medical Summary | Encounter Summary ---
:1960 Author Organization [facility] Address [address] [place] [address] [place] [address] Phone Care Team Providers Name Role Phone [...] Department Care Team Description 01/20/2018 Nurse Only [facility] Familial hypercholesterolemia Physicians - Clinical Pharmacology GROUND FLOOR [address] [place] [address] Social History Tobacco Use Types [...] Taken Blood Pressure 115/73 01/20/2018 10:44 AM ROCK WORKER Pulse 70 01/20/2018 10:44 AM ROCK WORKER Temperature 36.3 C (97.3 F) 01/20/2018 10:44 AM ROCK WORKER Respiratory Rate 12 01/20/2018 10:44 AM ROCK WORKER Oxygen Saturation 100% 01/20/2018 7:47 AM ROCK WORKER Inhaled Oxygen Concentration - - Weight 72.9 kg (160 lb 12.8 oz) 01/20/2018 10:44 AM ROCK WORKER Height - - Body Mass Index 23.75 01/20/2018 10:44 AM ROCK WORKER in this encounter Functional Status Functional Status [...] diphenhydrAMINE (BENADRYL) injection 25 Given 01/20/2018 07:59 ROCK WORKER 25 mg mg 25 mg, Intravenous, ONCE, 1 dose, Ling 01/20/18 at 0815 heparin (porcine) 30,000 Given - New Bag 01/20/2018 07:58 ROCK WORKER 2,000 Units/hr 2 mL/hr units/30 mL infusion (SYR) (KANEKA APHERESIS) 2,000 Units/hr (2 mL/hr), at 2 mL/hr, Apheresis, TITRATE DIRECTED , Starting Ling 01/20/18 at 0815, Until Ling 01/20/18 at 2014, Initiate heparin infusion at 2000 units/hr and titrate per protocol NOTE: This is a HIGH ALERT Medication. heparin (porcine) bolus for continuous inf Given 01/20/2018 07:58 ROCK WORKER 3,000 Units (SYR) (KANEKA) 3,000 Units 3,000 Units, Apheresis, ONCE, 1 dose, Ling 01/20/18 at 0815, NOTE: This is a HIGH ALERT Medication in this encounter
--- OUTSIDE RECORDS SUMMARY | 2018-01-31 01:33 | External Medical Summary | Encounter Summary ---
:1960 Author Organization [facility] Address [address] [place] [address] Phone Care Team Providers Name Role Phone [...] Description 01/11/2018 Pharmacy Visit [facility] [address] [place] [id number] Social History Tobacco Use Types Packs/Day Years [...]
--- OUTSIDE RECORDS SUMMARY | 2018-01-31 01:34 | External Medical Summary | Encounter Summary ---
:1960 Author Organization [facility] Address [address] [facility] [address] [place] [address] Phone Care Team Providers Name Role Phone Seferino Portillo MD Unavailable Pippa Neal Unavailable Unavailable Seferino Portillo MD Unavailable Tia Cunha MD Unavailable Pratibha Blandon LPN Unavailable Unavailable Carrie Ferrer RN Unavailable Unavailable Didi Duarte RN Registered Nurse Unavailable Tiffani Gil RN Unavailable Unavailable Vladimir Munson MD Primary Care Provider Encounter Details Date Type Department Care Team Description 12/28/2017 Documentation [facility] Kailee Samson [address] [place] [address] Social History Tobacco Use Types [...] Humira has been approved for Juan Luis Uiras from 12/28/17 to 11/14/18. The patient will receive the medication directly from the drug company during the approval period. Drug Company Medication Assistance Contact Information: TM [phone] Ka[facility] Pharmacy Patient Advocatein this encounter Plan of Treatment Not on fileas of this encounter Visit Diagnoses Not on filein this encounter
--- OUTSIDE RECORDS SUMMARY | 2018-01-31 01:34 | External Medical Summary | Encounter Summary ---
:1960 Author Organization [facility] Address [address] [facility] [address] [place] [address] Phone Care Team Providers Name Role Phone Sefeirno Portillo MD Unavailable Pippa Neal Unavailable Unavailable Seferino Portillo MD Unavailable Tia Cunha MD Unavailable Pratibha Blandon LPN Unavailable Unavailable Carrie Ferrer RN Unavailable Unavailable Didi Duarte RN Registered Nurse Unavailable Tiffani Gil RN Unavailable Unavailable Vladimir Munson MD Primary Care Provider Encounter Details Date Type Department Care Team Description 12/30/2017 Pharmacy Visit [facility] [address] [place], [place] [id number] Social History Tobacco Use Types Packs/Day Years [...]
--- OUTSIDE RECORDS SUMMARY | 2018-01-31 01:34 | External Medical Summary | Encounter Summary ---
:1960 Author Organization [facility] Address [address] [facility] [address] [place] [address] Phone Care Team Providers Name Role Phone Seferino Portillo MD Unavailable Pippa Neal Unavailable Unavailable Seferino Portillo MD Unavailable Tia Cunha MD Unavailable Pratibha Blandon LPN Unavailable Unavailable Carrie Ferrer RN Unavailable Unavailable Didi Duarte RN Registered Nurse Unavailable Tiffani Gil RN Unavailable Unavailable Vladimir Munson MD Primary Care Provider Encounter Details Date Type Department Care Team Description 12/15/2017 Prep for Case [facility] Brian, Physicians - Internal Alina Ordonez MD [facility] [address] [facility] [address] [place] [address] [place] [address] Social History Tobacco Use Types [...]
--- OUTSIDE RECORDS SUMMARY | 2018-01-31 01:34 | External Medical Summary | Encounter Summary ---
:1960 Author Organization [facility] Address [address] [facility] [address] [place] [address] Phone Care Team Providers Name Role Phone Seferino Portillo MD Unavailable Pippa Neal Unavailable Unavailable Seferino Portillo MD Unavailable Tia Cunha MD Unavailable Pratibha Blandon LPN Unavailable Unavailable Carrie Ferrer RN Unavailable Unavailable Didi Duarte RN Registered Nurse Unavailable Tiffani Gil RN Unavailable Unavailable Vladimir Munson MD Primary Care Provider Encounter Details Date Type Department Care Team Description 12/20/2017 Pharmacy Visit [facility] [address] [place], [place] [id number] Social History Tobacco Use Types Packs/Day Years [...]
--- OUTSIDE RECORDS SUMMARY | 2018-01-31 01:34 | External Medical Summary | Encounter Summary ---
:1960 Author Organization [facility] Address [address] [facility] [address] [place] [address] Phone Care Team Providers Name Role Phone [...] Type Department Care Team Description 12/15/2017 Telephone [facility] Brian Procedure Physicians - Internal Alina Ordonez MD Medicine [address] [facility] [address] [place] [address] [place] [address] Social History Tobacco Use Types [...] Jessica Alvarenga RN - 12/15/2017 9:38 AM SPRAY GUN REPAIRER HELPER- ---- Message from Lindsay Damico MD sent at 12/15/2017 9:23 AM SPRAY GUN REPAIRER HELPER ----- Yes, I recommended EGD at time of colon. I am sorry if this was not clear in my note. Thanks ----- Message ----- From: Jessica Alvarenga RN Sent: 12/15/2017 9:05 AM To: Lindsay Damico MD Good morning Dr. Damico, Please see below message from Dr. Cm. Thank you. Jessica Joyce RN ----- Message ----- From: Alina Torres MD Sent: 12/14/2017 9:25 PM To: Jessica Alvarenga RN Could you please find out who his validation engineer is and ask the physician if they recommend an EGD at the time of colonoscopy for esophageal varices surveillance or he is uptodate? in this encounter Plan of Treatment Not on fileas of this encounter Visit Diagnoses Not on filein this encounter
--- OUTSIDE RECORDS SUMMARY | 2018-01-31 01:35 | External Medical Summary | Encounter Summary ---
:1960 Author Organization [facility] Address [address] [facility] [address] [place] [address] Phone Care Team Providers Name Role Phone Seferino Portillo MD Unavailable Pippa Neal Unavailable Unavailable Seferino Portillo MD Unavailable Tia Cunha MD Unavailable Pratibha Blandon LPN Unavailable Unavailable Carrie Ferrer RN Unavailable Unavailable Didi Duarte RN Registered Nurse Unavailable Tiffani Gil RN Unavailable Unavailable Vladimir Munson MD Primary Care Provider Encounter Details Date Type Department Care Team Description 12/10/2017 Pharmacy Visit [facility] Retail [facility] [address] [place], [place] [id number] Social History Tobacco Use Types Packs/Day Years [...]
--- OUTSIDE RECORDS SUMMARY | 2018-01-31 01:35 | External Medical Summary | Encounter Summary ---
:1960 Author Organization [facility] Address [address] [facility] [address] [place] [address] Phone Care Team Providers Name Role Phone [...] Procedures Isamar Avila MD REQUEST FOR [address] [facility] [place] [address] [place] [address] Reason for Visit Reason Comments Cardiac Eval s/p cath 10/29, claudication, edema Encounter Details Date Type Department Care Team Description 12/15/2017 Office Visit [facility] Isamar Avila MD Cardiac Eval (s/p cath Cardiology [address] 10/29, claudication, [address] [place] [address] edema) [place], [place] [address] [place] [address] [phone] Social History Tobacco Use Types Packs/Day Years [...] Taken Blood Pressure 138/70 12/15/2017 2:38 PM ELECTRIC SIGN WIRER Pulse 71 12/15/2017 2:38 PM ELECTRIC SIGN WIRER Temperature - - Respiratory Rate - - Oxygen Saturation 97% 12/15/2017 2:38 PM ELECTRIC SIGN WIRER Inhaled Oxygen Concentration - - Weight 74.4 kg (164 lb) 12/15/2017 2:38 PM ELECTRIC SIGN WIRER Height 175.3 cm (5' 9") 12/15/2017 2:38 PM ELECTRIC SIGN WIRER Body Mass Index 24.22 12/15/2017 2:38 PM ELECTRIC SIGN WIRER in this encounter Functional Status Functional Status [...] 12/15/2017 Added automatically from request for surgery [id number] Ulcerative pancolitis (HCC) 12/09/2017 Added automatically from request for surgery [id number] Shortness of breath 09/29/2017 Chest pain 09/29/2017 Vitamin D deficiency 09/14/2017 Ischemic cardiomyopathy 05/13/2017 Unstable angina (HCC) 08/24/2016 CAD (coronary artery disease), [place] coronary artery 02/18/2015 12/25/2014 - Stress Test: [...] Diagnoses Name Primary? Coronary artery disease involving [place] coronary artery with unstable angina pectoris, unspecified whether [place] or transplanted heart (HCC) Chronic liver disease [...] vascular disease, unspecified Coronary artery disease involving [place] coronary artery with unstable angina pectoris, unspecified whether [place] or transplanted heart (HCC) Chronic liver disease [...]
--- OUTSIDE RECORDS SUMMARY | 2018-01-31 01:35 | External Medical Summary | Encounter Summary ---
:1960 Author Organization [facility] Address [address] [facility] [address] [place] [address] Phone Care Team Providers Name Role Phone Seferino Portillo MD Unavailable Pippa Neal Unavailable Unavailable Seferino Portillo MD Unavailable Tia Cunha MD Unavailable Pratibha Blandon LPN Unavailable Unavailable Carrie Ferrer RN Unavailable Unavailable Didi Duarte RN Registered Nurse Unavailable Tiffani Gil RN Unavailable Unavailable Vladimir Munson MD Primary Care Provider Encounter Details Date Type Department Care Team Description 12/13/2017 Documentation [facility] Retail Pharmacy Kailee Samson [address] [place] [address] Social History Tobacco Use Types [...]
--- OUTSIDE RECORDS SUMMARY | 2018-01-31 01:35 | External Medical Summary | Encounter Summary ---
:1960 Author Organization [facility] Address [address] [place] [address] Phone Care Team Providers Name Role Phone Seferino Portillo MD Unavailable Pippa Neal Unavailable Unavailable Seferino Portillo MD Unavailable Tia Cunha MD Unavailable Pratibha Blandon LPN Unavailable Unavailable Carrie Ferrer RN Unavailable Unavailable Didi Duarte RN Registered Nurse Unavailable Tiffani Gil RN Unavailable Unavailable Vladimir Munson MD Primary Care Provider Encounter Details Date Type Department Care Team Description 12/13/2017 Orders Only [facility] Brian, Physicians - Internal Alina Ordonez MD Medicine [address] [facility] [address] [place] [address] [address] [facility] MED [phone] [place] [address] Social History Tobacco Use Types [...]
--- OUTSIDE RECORDS SUMMARY | 2018-01-31 01:35 | External Medical Summary | Encounter Summary ---
:1960 Author Organization [facility] Address [address] [facility] [address] [place] [address] Phone Care Team Providers Name Role Phone Seferino Portillo MD Unavailable Pippa Neal Unavailable Unavailable Seferino Portillo MD Unavailable Tia Cunha MD Unavailable Pratibha Blandon LPN Unavailable Unavailable Carrie Ferrer RN Unavailable Unavailable Didi Duarte RN Registered Nurse Unavailable Tiffani Gil RN Unavailable Unavailable Vladimir Munson MD Primary Care Provider Encounter Details Date Type Department Care Team Description 12/13/2017 Pharmacy Visit [facility] Retail [facility] [address] [place], [place] [phone] Social History Tobacco Use Types Packs/Day Years [...]
--- OUTSIDE RECORDS SUMMARY | 2018-01-31 01:35 | External Medical Summary | Encounter Summary ---
:1960 Author Organization [facility] Address [address] [facility] [address] [place] [address] Phone Care Team Providers Name Role Phone Seferino Portillo MD Unavailable Pippa Neal Unavailable Unavailable Seferino Portillo MD Unavailable Tia Cunha MD Unavailable Pratibha Blandon LPN Unavailable Unavailable Carrie Ferrer RN Unavailable Unavailable Didi Duarte RN Registered Nurse Unavailable Tiffani Gil RN Unavailable Unavailable Vladimir Munson MD Primary Care Provider Encounter Details Date Type Department Care Team Description 12/09/2017 Pharmacy Visit [facility] Retail [facility] [address] [place], [place] [id number] Social History Tobacco Use Types Packs/Day Years [...]
--- OUTSIDE RECORDS SUMMARY | 2018-01-31 01:35 | External Medical Summary | Encounter Summary ---
:1960 Author Organization [facility] Address [address] [place] [address] Phone Care Team Providers Name Role Phone [...] BANDAR ARTERIAL COMPLETE (AO + LOWER EXTRM) [place] DUP-SCAN AORTA IVC ILIAC VASCL/BPGS COMPLETE [address] [place] [address] [place] [address] Phone: Fax: Consult, Test & Treat Status Reason Specialty Diagnoses / Procedures Referred By Referred To Contact Contact No Auth Needed Cardiology Diagnoses Chronic liver disease PAD (peripheral artery disease) (HCC) Hx MRSA infection Ischemic cardiomyopathy Isamar Avila MD [facility] Procedures PV BANDAR ARTERIAL COMPLETE (AO + LOWER EXTRM) [place] DUP-SCAN AORTA IVC ILIAC VASCL/BPGS COMPLETE [address] [place] [address] Phone: Fax: Reason for Visit Consult, Test & Treat Status Reason Specialty Diagnoses / Procedures Referred By Referred To Contact Contact No Auth Needed Cardiology Diagnoses Chronic liver disease PAD (peripheral artery disease) (HCC) Hx MRSA infection Ischemic cardiomyopathy Isamar Avila MD [facility] Procedures PV BANDAR ARTERIAL COMPLETE (AO + LOWER EXTRM) [place] DUP-SCAN AORTA IVC ILIAC VASCL/BPGS COMPLETE [address] [place] [address] Phone: Fax: Encounter Details Date Type Department Care Team Description 12/15/2017 Hospital Encounter [facility] Cardiology Isamar Avila MD [address] [place] [address] [address] [place] [address] [phone] Social History Tobacco Use Types Packs/Day Years [...] Taken Blood Pressure 114/72 12/15/2017 1:05 PM TRENCH PIPE LAYER Pulse - - Temperature - - Respiratory Rate - - Oxygen Saturation - - Inhaled Oxygen Concentration - - Weight 74.3 kg (163 lb 12.8 oz) 12/15/2017 1:05 PM TRENCH PIPE LAYER Height 180 cm (5' 10.87") 12/15/2017 1:05 PM TRENCH PIPE LAYER Body Mass Index 22.93 12/15/2017 1:05 PM TRENCH PIPE LAYER in this encounter Functional Status Functional Status [...] Coronary artery disease with meals. Take involving [place] coronary with food. artery of [place] heart with angina pectoris (HCC) chlorthalidone (HYGROTON) Take 25 mg by mouth 25 mg tablet daily. CHOLECALCIFEROL (VITAMIN Take 5,000 Units by D3) (VITAMIN D3 PO) mouth daily. clopiDOGrel (PLAVIX) 75 mg Take 1 Tab by mouth 90 Tab 3 04/11/2017 tabletIndications: daily. Coronary artery disease involving [place] coronary artery of [place] heart with unstable angina pectoris (HCC), Chronic liver disease, S/P CABG (coronary artery bypass graft), PAD (peripheral artery disease) ([facility]), Gastroesophageal reflux disease without esophagitis, Essential hypertension with goal blood pressure less than 130/85, Other hyperlipidemia, Accelerating angina (HCC), Coronary artery disease involving [place] coronary artery of [place] heart with angina pectoris (HCC) ergocalciferol (VITAMIN [...] mg tabletIndications: daily. Coronary artery disease involving [place] coronary artery of [place] heart with angina pectoris (HCC) pantoprazole DR [...] 2.0 Left external iliac ratio 1.6 RIGHT MANAGER SURGICAL PROX SYS MAX 2.01 m/s RIGHT MANAGER SURGICAL DIST SYS MAX 1.9 m/s RIGHT PROFUNDA [...] RIGHT PERONEAL SYS MAX 0.28 m/s LEFT MANAGER SURGICAL PROX SYS MAX 2.22 m/s LEFT MANAGER SURGICAL DIST SYS MAX 2.96 m/s LEFT PROFUNDA [...]
--- OUTSIDE RECORDS SUMMARY | 2018-01-31 01:36 | External Medical Summary | Encounter Summary ---
:1960 Author Organization [facility] Address [address] [place] [address] Phone Care Team Providers Name Role Phone [...] Hospital Encounter QV LAB [facility]ourt[facility]lin[facility] Ulcerative (chronic) [address] , Alina Ordonez MD pancolitis without [address] [place] complications (HCC) [place], [place] [address] [address] [place], [place] [phone] [address] [phone] Social History Tobacco Use Types Packs/Day Years [...] Coronary artery disease with meals. Take involving [place] coronary with food. artery of [place] heart with angina pectoris ([facility]) chlorthalidone (HYGROTON) Take 25 mg by mouth 25 mg tablet daily. CHOLECALCIFEROL (VITAMIN Take 5,000 Units by D3) (VITAMIN D3 PO) mouth daily. clopiDOGrel (PLAVIX) 75 Take 1 Tab by mouth 90 Tab 3 04/11/2017 mg tabletIndications: daily. Coronary artery disease involving [place] coronary artery of [place] heart with unstable angina pectoris ([facility]), Chronic liver disease, S/P CABG (coronary artery bypass graft), PAD (peripheral artery disease) ([facility]), Gastroesophageal reflux disease without esophagitis, Essential hypertension with goal blood pressure less than 130/85, Other hyperlipidemia, Accelerating angina ([facility]), Coronary artery disease involving [place] coronary artery of [place] heart with angina pectoris ([facility] [...] mg tabletIndications: daily. Coronary artery disease involving [place] coronary artery of [place] heart with angina pectoris (HCC) pantoprazole DR [...] <8.0Negative Specimen Performing Laboratory Blood MAIN LAB [address] [place] [address] HEPATITIS B SURFACE AG (12/09/2017 3:40 PM) Component Value Ref Range HBsAg NEG Specimen Performing Laboratory Blood MAIN LAB [address] [place] [address] HEPATITIS B CORE AB TOT (IGG+IGM) (12/09/2017 3:40 PM) Component Value Ref Range Anti HBc Total NEG Specimen Performing Laboratory Blood MAIN LAB [address] [place] [address] in this encounter Visit Diagnoses Diagnosis Ulcerative pancolitis (HCC) [place] ulcerative (chronic) colitis Admitting Diagnoses Diagnosis Ulcerative (chronic) pancolitis without complications (HCC) Ulcerative (chronic) pancolitis without complications
--- OUTSIDE RECORDS SUMMARY | 2018-01-31 01:36 | External Medical Summary | Encounter Summary ---
:[address] [facility] Address [address] [facility] [address] [place] [address] Phone Care Team Providers Name Role Phone [...] Ulcerative colitis with complication, unspecified location (HCC) jail systemic steroid user History of fracture Julia Torres Procedures BONE DENSITY SPINE/HIP Alina Ordonez MD Radiology [address] [facility] [address] [place] [address] Phone: Radiology Services Status Reason Specialty Diagnoses / Referred By Referred To Procedures Contact Contact No Auth Needed Radiology Diagnoses Vitamin D deficiency Ulcerative colitis with complication, unspecified location (HCC) lobsterman systemic steroid user History of fracture Kourtney-Aslinia, [place]w Gen Procedures BONE DENSITY SPINE/HIP Alina Ordonez MD Radiology [address] [place] [address] Phone: Reason for Visit Radiology Services Status Reason Specialty Diagnoses / Referred By Referred To Procedures Contact Contact No Auth Needed Radiology Diagnoses Vitamin D deficiency Ulcerative colitis with complication, unspecified location (HCC) lobsterman systemic steroid user History of fracture Julia Torres Procedures BONE DENSITY SPINE/HIP Alina Ordonez MD Radiology [address] [place] [address] Phone: Encounter Details Date Type Department Care Team Description 12/09/2017 Hospital Encounter [facility] Alina Ordonez MD Radiology [address] [place] [address] [phone] Social History Tobacco Use Types Packs/Day Years [...] deficiency, Ulcerative colitis with complication, unspecified location ([facility]) carvedilol (COREG) 6.25 Take 0.5 Tabs by 180 Tab 3 04/11/2017 mg tabletIndications: mouth twice daily Coronary artery disease with meals. Take involving [place] coronary with food. artery of [place] heart with angina pectoris ([facility]) chlorthalidone (HYGROTON) Take 25 mg by mouth 25 mg tablet daily. CHOLECALCIFEROL (VITAMIN Take 5,000 Units by D3) (VITAMIN D3 PO) mouth daily. clopiDOGrel (PLAVIX) 75 Take 1 Tab by mouth 90 Tab 3 04/11/2017 mg tabletIndications: daily. Coronary artery disease involving [place] coronary artery of [place] heart with unstable angina pectoris ([facility]), Chronic liver disease, S/P CABG (coronary artery bypass graft), PAD (peripheral artery disease) ([facility]), Gastroesophageal reflux disease without esophagitis, Essential hypertension with goal blood pressure less than 130/85, Other hyperlipidemia, Accelerating angina ([facility]), Coronary artery disease involving [place] coronary artery of [place] heart with angina pectoris ([facility]) ergocalciferol (VITAMIN Take 1 capsule by 4 [...] mg tabletIndications: daily. Coronary artery disease involving [place] coronary artery of [place] heart with angina pectoris (HCC) pantoprazole DR [...] Interface, Radiant Results - 12/09/2017 12:51 PM MOTEL FRONT DESK CLERK DEXA BONE MINERAL DENSITY SCAN: CLINICAL HISTORY: [...] Ulcerative colitis with complication, unspecified location (HCC) lobsterman systemic steroid user History of fracture Personal history of traumatic fracture
--- OUTSIDE RECORDS SUMMARY | 2018-01-31 01:36 | External Medical Summary | Encounter Summary ---
:1960 Author Organization [facility] Address [address] [place] [address] Phone Care Team Providers Name Role Phone [...] Department Care Team Description 11/25/2017 Nurse Only [facility] Pure hypercholesterolemia; Physicians - Clinical Elevated Lp(a) Pharmacology GROUND FLOOR [address] [facility] [address] Social History Tobacco Use Types [...] Taken Blood Pressure 133/73 11/25/2017 10:31 AM PATIENT FLOW COORDINATOR Pulse 51 11/25/2017 10:31 AM PATIENT FLOW COORDINATOR Temperature 36.3 C (97.3 F) 11/25/2017 10:31 AM PATIENT FLOW COORDINATOR Respiratory Rate 18 11/25/2017 10:31 AM PATIENT FLOW COORDINATOR Oxygen Saturation - - Inhaled Oxygen Concentration - - Weight 71.6 kg (157 lb 12.8 oz) 11/25/2017 10:31 AM PATIENT FLOW COORDINATOR Height - - Body Mass Index 23.3 11/25/2017 10:31 AM PATIENT FLOW COORDINATOR in this encounter Functional Status Functional Status [...] Site diphenhydrAMINE (BENADRYL) injection Given 11/25/2017 07:55 PATIENT FLOW COORDINATOR 25 mg 25 mg 25 mg, Intravenous, ONCE, 1 dose, Ling 11/25/17 at 0800 heparin (porcine) 30,000 Given - New 11/25/2017 07:53 1,500 Units/hr 1.5 mL/ hr units/30 mL infusion (SYR) Bag PATIENT FLOW COORDINATOR (KANEKA APHERESIS) 1,500 Units/hr (1.5 mL/hr), at 1.5 mL/hr, Apheresis, TITRATE DIRECTED , Starting Ling 11/25/17 at 0800, Until Ling 11/25/17 at 1959, Initiate heparin infusion at 1500 units/hr and titrate per protocol NOTE: This is a HIGH ALERT Medication. heparin (porcine) bolus for continuous inf Given 11/25/2017 07:53 PATIENT FLOW COORDINATOR 1,500 Units (SYR) (KANEKA) 1,500 Units 1,500 Units, Apheresis, ONCE, 1 dose, Ling 11/25/17 at 0800, NOTE: This is a HIGH ALERT Medication in this encounter
--- OUTSIDE RECORDS SUMMARY | 2018-01-31 01:36 | External Medical Summary | Encounter Summary ---
:1960 Author Organization [facility] Address [address] [place] [address] Phone Care Team Providers Name Role Phone Seferino Portillo MD Unavailable Pippa Neal Unavailable Unavailable Seferino Portillo MD Unavailable Tia Cunha MD Unavailable Pratibha Blandon LPN Unavailable Unavailable Carrie Ferrer RN Unavailable Unavailable Didi Duarte RN Registered Nurse Unavailable Tiffani Gil RN Unavailable Unavailable Vladimir Munson MD Primary Care Provider Encounter Details Date Type Department Care Team Description 12/09/2017 Prep for Case [facility] Brian Physicians - Internal Alina Ordonez MD Medicine [address] [place] [address] [place] [phone] [address] [phone] Social History Tobacco Use Types Packs/Day Years [...]
--- OUTSIDE RECORDS SUMMARY | 2018-01-31 01:36 | External Medical Summary | Encounter Summary ---
:[address] [facility] Address [address] [place] [address] Phone Care Team Providers Name Role Phone [...] Department Care Team Description 12/09/2017 Office Visit [facility] Brian, Ulcerative pancolitis (HCC) (Primary Dx); Physicians - Internal Alina Ordonez MD Ulcerative pancolitis without complication (HCC); Medicine [address] Functional diarrhea; [address] [place], [place] Vitamin D deficiency; 100 [id number] Iron deficiency [place] [phone] [address] [phone] Social History Tobacco Use Types Packs/Day Years [...] Taken Blood Pressure 131/84 12/09/2017 2:14 PM DRYWALL HANGER HELPER Pulse 97 12/09/2017 2:14 PM DRYWALL HANGER HELPER Temperature - - Respiratory Rate 16 12/09/2017 2:14 PM DRYWALL HANGER HELPER Oxygen Saturation 100% 12/09/2017 2:14 PM DRYWALL HANGER HELPER Inhaled Oxygen Concentration - - Weight 74.4 kg (164 lb) 12/09/2017 2:14 PM DRYWALL HANGER HELPER Height 179.8 cm (5' 10.8") 12/09/2017 2:14 PM DRYWALL HANGER HELPER Body Mass Index 23 12/09/2017 2:14 PM DRYWALL HANGER HELPER in this encounter Functional Status Functional [...] your care please contact AMISHA Lopez via Venturepax (preference) or @ [phone]. Follow up in 1 month.in this encounter [...] is a 57-year-old gentleman who presented to [facility] for ulcerative colitis. He currently experiences [...] 1999. He sees one of our transplant flat screen worker at [facility] for primary sclerosing cholangitis. He [...] cholangitis on liver biopsy sometime between 2001 [id number]: He has been started on ursodiol at that time. 2013: Started on Remicade. He did not notice significant improvement with Remicade. Patient was discontinued when he went on disability. [id number]: He was treated for coronary artery disease [...] artery disease) 02/18/2015 CAD (coronary artery disease), [place] coronary artery 02/18/2015 12/25/2014 - Stress Test: Abnormal MPI with evidence of infarct in the RCA territory. Preserved LV function and absence of stress induced myocardial cavity dilation. ([facility] 03/11/17- Cardiac catheterization, left main had [...] 02/18/2015 S/P CABG (coronary artery bypass graft) [facility] Type 2 diabetes mellitus (HCC) 02/18/2015 PSH: Past Surgical History: Procedure Laterality Date CORONARY ARTERY BYPASS GRAFT 08/20/2010 quad; with bypass angiography SURGERY 12/2010 right carotid endarterectomy CORONARY STENT PLACEMENT 01/06/2012 x1 PERCUTANEOUS CORONARY INTERVENTION N/A 03/20/2016 Percutaneous Coronary Intervention performed by Tino Durbin MD at ELECTRICIAN SUPERVISOR PERCUTANEOUS CORONARY INTERVENTION N/A 03/11/2017 Possible Percutaneous Coronary Intervention performed by Isamar Avila MD at ELECTRICIAN SUPERVISOR PERCUTANEOUS CORONARY INTERVENTION N/A 04/09/2017 Percutaneous Coronary Intervention to Saphenous Vein Graft, Right Coronary Artery performed by Isamar Avila MD at ELECTRICIAN SUPERVISOR PERCUTANEOUS CORONARY INTERVENTION N/A 04/09/2017 Percutaneous Coronary Intervention performed by Isamar Avila MD at ELECTRICIAN SUPERVISOR PERCUTANEOUS CORONARY INTERVENTION N/A 05/13/2017 Possible Percutaneous Coronary Intervention performed by Isamar Avila MD at ELECTRICIAN SUPERVISOR PERCUTANEOUS CORONARY INTERVENTION N/A 09/29/2017 Possible Percutaneous Coronary Intervention performed by Isamar Avila MD at ELECTRICIAN SUPERVISOR CARDIAC CATHERIZATION HEART CATHETERIZATION 2016 [email or web address] (R) [...] heparin (porcine) 30,000 units/30 mL infusion (SYR) ([facility]), 2, 000 Units/hr, Apheresis, TITRATE, Seferino [...] sign up for patient assistance program at [facility] to receive the medication. He will be prescribed with Uceris 9 g daily for 3 months. -Colon cancer screening in the setting of ulcerative pancolitis since 1996: He will be scheduled to have a colonoscopy with [facility]. -Primary sclerosing cholangitis: He is seeing one of our transplant flat screen worker here at [facility]. -Anemia: Iron panel, folic acid, [...] ulcerative colitis. I will communicate with his flat screen worker to see if he is due for [...] <8.0Negative Specimen Performing Laboratory Blood MAIN LAB [address] [place] [address] HEPATITIS B SURFACE AG (12/09/2017 3:40 PM) Component Value Ref Range HBsAg NEG Specimen Performing Laboratory Blood MAIN LAB [address] [place] [address] HEPATITIS B CORE AB TOT (IGG+IGM) (12/09/2017 3:40 PM) Component Value Ref Range Anti HBc Total NEG Specimen Performing Laboratory Blood MAIN LAB [address] [place] [address] in this encounter Visit Diagnoses Diagnosis Ulcerative pancolitis (HCC) - Primary [place] ulcerative (chronic) colitis Ulcerative pancolitis without complication (HCC) Functional diarrhea Vitamin D deficiency Unspecified vitamin D deficiency Iron deficiency Iron deficiency anemia, unspecified
--- OUTSIDE RECORDS SUMMARY | 2018-01-31 01:36 | External Medical Summary | Encounter Summary ---
:1960 Author Organization [facility] Address [address] [place] [address] Phone Care Team Providers Name Role Phone [...] Description 12/09/2017 Pharmacy Visit [facility] [address] [place] [address] Social History Tobacco Use Types Packs/Day Years [...]
--- OUTSIDE RECORDS SUMMARY | 2018-01-31 01:36 | External Medical Summary | Encounter Summary ---
:1960 Author Organization [facility] Address [address] [place] [address] Phone Care Team Providers Name Role Phone [...] Physicians - Clinical Pharmacology GROUND FLOOR [address] [place] [address] Social History Tobacco Use Types [...] Taken Blood Pressure 112/72 12/09/2017 10:21 AM RADAR SYSTEMS ENGINEER Pulse 66 12/09/2017 10:21 AM RADAR SYSTEMS ENGINEER Temperature 36.3 C (97.3 F) 12/09/2017 10:21 AM RADAR SYSTEMS ENGINEER Respiratory Rate 13 12/09/2017 10:21 AM RADAR SYSTEMS ENGINEER Oxygen Saturation - - Inhaled Oxygen Concentration - - Weight 74.3 kg (163 lb 12.8 oz) 12/09/2017 10:21 AM RADAR SYSTEMS ENGINEER Height - - Body Mass Index 24.19 12/09/2017 10:21 AM RADAR SYSTEMS ENGINEER in this encounter Functional Status Functional [...] Site diphenhydrAMINE (BENADRYL) injection Given 12/09/2017 08:16 RADAR SYSTEMS ENGINEER 25 mg 25 mg 25 mg, Intravenous, ONCE, 1 dose, Ling 12/09/17 at 0830 heparin (porcine) 30,000 Given - New Bag 12/09/2017 07:58 2,000 Units/hr 2 mL/hr units/30 mL infusion (SYR) RADAR SYSTEMS ENGINEER (KANEKA APHERESIS) 2,000 Units/hr (2 mL/hr), at 2 mL/hr, Apheresis, TITRATE DIRECTED , Starting Ling 12/09/17 at 0815, Until Ling 12/09/17 at 2014, Initiate heparin infusion at 2000 units/hr and titrate per protocol NOTE: This is a HIGH ALERT Medication. heparin (porcine) bolus for continuous inf Given 12/09/2017 07:58 RADAR SYSTEMS ENGINEER 2,000 Units (SYR) (KANEKA) 2,000 Units 2,000 Units, Apheresis, ONCE, 1 dose, Ling 12/09/17 at 0815, NOTE: This is a HIGH ALERT Medication in this encounter
--- OUTSIDE RECORDS SUMMARY | 2018-01-31 01:37 | External Medical Summary | Encounter Summary ---
:1960 Author Organization [facility] Address [address] [place] [address] Phone Care Team Providers Name Role Phone Sefernio Portillo MD Unavailable Pippa Neal Unavailable Unavailable Seferino Portillo MD Unavailable Tia Cunha MD Unavailable Pratibha Blandon LPN Unavailable Unavailable Carrie Ferrer RN Unavailable Unavailable Didi Duarte RN Registered Nurse Unavailable Tiffani Gil RN Unavailable Unavailable Vladimir Munson MD Primary Care Provider Encounter Details Date Type Department Care Team Description 11/22/2017 Orders Only [facility] Seferino Portillo MD Physicians - Clinical [address] [facility] Pharmacology [place] [address] [place] [address] [address] [facility] [place] [phone] [place] [address] Social History Tobacco Use Types [...] Not on fileas of this encounter Results PHDX RESULTS (10/28/2017) Component Value Ref Range Cholesterol [...] Apolipoprotein E & Alleles Apolipoprotein E Specimen IVR2V61*2*3 [id number]*17* Factor 5 Leiden Prothrombin Gene Analysis Insulin [...] T3 (Total) Testosterone, Serum Specimen Performing Laboratory [facility] [address] [place] [address], [address] [place] [address] PHDX RESULTS (10/28/2017) Component Value Ref Range Cholesterol [...] Apolipoprotein E & Alleles Apolipoprotein E Specimen [id number]*2*3 [id number]*17* Factor 5 Leiden Prothrombin Gene Analysis Insulin [...] MCHC RDW Platelet Count Specimen Performing Laboratory [facility] [address] [place] [address], [address] [place] [address] in this encounter Visit Diagnoses Not on filein this encounter
--- OUTSIDE RECORDS SUMMARY | 2018-01-31 01:37 | External Medical Summary | Encounter Summary ---
:1960 Author Organization [facility] Address [address] [place] [address] Phone Care Team Providers Name Role Phone [...] 11/16/2017 Documentation [facility] Pharm[facility] Rajni Mandujano [address] [place] [phone] Social History Tobacco Use Types Packs/Day Years [...] start the application process. Rajni Mandujano Medication Curriculum Director [phone] in this encounter Plan of Treatment Not on fileas of this encounter Visit Diagnoses Not on filein this encounter
--- OUTSIDE RECORDS SUMMARY | 2018-01-31 01:37 | External Medical Summary | Encounter Summary ---
:1960 Author Organization [facility] Address [address] [place] [address] Phone Care Team Providers Name Role Phone Seferino Portillo MD Unavailable Pippa Neal Unavailable Unavailable Seferino Portillo MD Unavailable Tia Cunha MD Unavailable Pratibha Blandon LPN Unavailable Unavailable Carrie Ferrer RN Unavailable Unavailable Didi Duarte RN Registered Nurse Unavailable Tiffani Gil RN Unavailable Unavailable Vladimir Munson MD Primary Care Provider Reason for Visit Reason Comments Prior Authorization [facility] Encounter Details Date Type Department Care Team Description 11/16/2017 Telephone [facility] Brian, Prior Authorization Physicians - Internal Alina Ordonez MD ([facility]) Medicine [address] [facility] [address] FLOOR [address] [place], [place] [address] [facility] [address] OFFICE [address]LDG [phone] [place] [address] Social History Tobacco Use Types [...] PM CSTPA submitted for Momo ZHAO APPROVED CaseId:[id number];Product Name:FCR: Non-Formulary Medication - [employer] MEDICARE; Status:Approved;Coverage Start Date:11/16/2017;Coverage End Date:11/16/2018; in this encounter Plan of Treatment Not on fileas of this encounter Visit Diagnoses Not on filein this encounter
--- OUTSIDE RECORDS SUMMARY | 2018-01-31 01:37 | External Medical Summary | Encounter Summary ---
:1960 Author Organization [facility] Address [address] [place] [address] Phone Care Team Providers Name Role Phone Seferino Portillo MD Unavailable Pippa Neal Unavailable Unavailable Seferino Portillo MD Unavailable Tia Cunha MD Unavailable Pratibha Blandon LPN Unavailable Unavailable Carrie Ferrer RN Unavailable Unavailable Didi Duarte RN Registered Nurse Unavailable Tiffani Gil RN Unavailable Unavailable Vladimir Munson MD Primary Care Provider Encounter Details Date Type Department Care Team Description 11/19/2017 Orders Only [facility] Brian, Vitamin D deficiency Physicians - Internal Alina Ordonez MD (Primary Dx) Medicine [address] [facility]ND FLOOR POD [place] [address] [facility] MED [address] OFFICE [address]LDG [phone] [place] [address] Social History Tobacco Use Types [...]
--- OUTSIDE RECORDS SUMMARY | 2018-01-31 01:37 | External Medical Summary | Encounter Summary ---
:1960 Author Organization [facility] Address [address] [facility] [address] [place] [address] Phone Care Team Providers Name Role Phone Seferino Portillo MD Unavailable Pippa Neal Unavailable Unavailable Seferino Portillo MD Unavailable Tia Cunha MD Unavailable Pratibha Blandon LPN Unavailable Unavailable Carrie Ferrer RN Unavailable Unavailable Didi Duarte RN Registered Nurse Unavailable Tiffani Gil RN Unavailable Unavailable Vladimir Munson MD Primary Care Provider Encounter Details Date Type Department Care Team Description 11/21/2017 Pharmacy Visit [facility] [address] [place], [place] [id number] Social History Tobacco Use Types Packs/Day Years [...]
--- OUTSIDE RECORDS SUMMARY | 2018-01-31 01:37 | External Medical Summary | Encounter Summary ---
:1960 Author Organization [facility] Address [address] [place] [address] Phone Care Team Providers Name Role Phone Seferino Portillo MD Unavailable Pippa Neal Unavailable Unavailable Seferino Portillo MD Unavailable Tia Cunha MD Unavailable Pratibha Blandon LPN Unavailable Unavailable Carrie Ferrer RN Unavailable Unavailable Didi Duarte RN Registered Nurse Unavailable Tiffani Gil RN Unavailable Unavailable Vladimir Munson MD Primary Care Provider Encounter Details Date Type Department Care Team Description 11/16/[address] [facility] Nikki Medrano [address] [place] [address] Social History Tobacco Use Types Packs/Day Years [...] income either. [facility] Patient Advocate Ocean Transportation Intermediary Can Filling Room Sweeper [id number] in this encounter Plan of Treatment Not on fileas of this encounter Visit Diagnoses Not on filein this encounter
--- OUTSIDE RECORDS SUMMARY | 2018-01-31 01:38 | External Medical Summary | Encounter Summary ---
:1960 Author Organization [facility] Address [address] [facility] [address] [place] [address] Phone Care Team Providers Name Role Phone Seferino Portillo MD Unavailable Pippa Neal Unavailable Unavailable Seferino Portillo MD Unavailable Tia Cunha MD Unavailable Pratibha Blandon LPN Unavailable Unavailable Carrie Ferrer RN Unavailable Unavailable Didi Duarte RN Registered Nurse Unavailable Tiffani Gil RN Unavailable Unavailable Vladimir Munson MD Primary Care Provider Encounter Details Date Type Department Care Team Description 11/11/2017 Pharmacy Visit [facility] [address] [place], [place] [phone] Social History Tobacco Use Types Packs/Day Years [...]
--- OUTSIDE RECORDS SUMMARY | 2018-01-31 01:38 | External Medical Summary | Encounter Summary ---
:1960 Author Organization [facility] Address [address] [place] [address] Phone Care Team Providers Name Role Phone Seferino Portillo MD Unavailable Pippa Neal Unavailable Unavailable Seferino Portillo MD Unavailable Tia Cunha MD Unavailable Pratibha Blandon CANDLE POURER Unavailable Unavailable Carrie Ferrer RN Unavailable Unavailable Didi Duarte RN Registered Nurse Unavailable Tiffani Gil RN Unavailable Unavailable Vladimir Munson MD Primary Care Provider Reason for Visit Reason Comments Lipid Management Encounter Details Date Type Department Care Team Description 11/11/2017 Nurse Only [facility] Physicians - Clinical Familial hypercholesterolemia Pharmacology GROUND FLOOR [address] [place] [address] Social History Tobacco Use Types [...] Taken Blood Pressure 108/70 11/11/2017 11:16 AM TOOLING SPECIALIST Pulse 68 11/11/2017 11:16 AM TOOLING SPECIALIST Temperature 36.6 C (97.9 F) 11/11/2017 11:16 AM TOOLING SPECIALIST Respiratory Rate 16 11/11/2017 11:16 AM TOOLING SPECIALIST Oxygen Saturation - - Inhaled Oxygen Concentration - - Weight 74.5 kg (164 lb 4.8 oz) 11/11/2017 11:16 AM TOOLING SPECIALIST Height - - Body Mass Index 24.26 11/11/2017 11:16 AM TOOLING SPECIALIST in this encounter Functional Status Functional Status [...] CSTI examined Juan Luis Urias ( from [place], [place]) today undergoing lipid apheresis. I was [...] Site diphenhydrAMINE (BENADRYL) injection Given 11/11/2017 08:15 TOOLING SPECIALIST 25 mg 25 mg 25 mg, Intravenous, ONCE, 1 dose, Ling 11/11/17 at 0845 heparin (porcine) 30,000 Given - New 11/11/2017 08:15 1,500 Units/hr 1.5 mL /hr units/30 mL infusion (SYR) Bag TOOLING SPECIALIST (KANEKA APHERESIS) 1,500 Units/hr (1.5 mL/hr), at 1.5 mL/hr, Apheresis, TITRATE DIRECTED , Starting Ling 11/11/17 at 0845, Until Ling 11/11/17 at 2044, Initiate heparin infusion at 1500 units/hr and titrate per protocol NOTE: This is a HIGH ALERT Medication. heparin (porcine) bolus for continuous inf Given 11/11/2017 08:15 TOOLING SPECIALIST 2,000 Units (SYR) (KANEKA) 2,000 Units 2,000 Units, Apheresis, ONCE, 1 dose, Ling 11/11/17 at 0845, NOTE: This is a HIGH ALERT Medication in this encounter
--- OUTSIDE RECORDS SUMMARY | 2018-01-31 01:38 | External Medical Summary | Encounter Summary ---
:1960 Author Organization [facility] Address [address] [facility] [address] [place] [address] Phone Care Team Providers Name Role Phone Seferino Portillo MD Unavailable Pippa Neal Unavailable Unavailable Seferino Portillo MD Unavailable iTa Cunha MD Unavailable Pratibha Blandon LPN Unavailable Unavailable Carrie eFrrer RN Unavailable Unavailable Didi Duarte RN Registered Nurse Unavailable Tiffani Gil RN Unavailable Unavailable Vladimir Munson MD Primary Care Provider Encounter Details Date Type Department Care Team Description 11/12/[address] [facility] [address] [place], [place] [phone] Social History Tobacco Use Types Packs/Day Years [...]
--- OUTSIDE RECORDS SUMMARY | 2018-01-31 01:38 | External Medical Summary | Encounter Summary ---
:1960 Author Organization [facility] Address [address] [place] [address] Phone Care Team Providers Name Role Phone [...] Ulcerative colitis with complication, unspecified location (HCC) [facility] systemic steroid user History of fracture Julia Torres Gen Procedures BONE DENSITY SPINE/HIP Alina Ordonez MD Radiology [address] [facility] [address] [place] [address] Phone: Reason for Visit Reason Comments New Patient Ulcerative pancolitis Consult, Test & Treat Status Reason Specialty Diagnoses / Referred By Referred To Procedures Contact Contact No Auth Specialty Gastroenterology Diagnoses Primary sclerosing cholangitis Ulcerative pancolitis without complication (HCC) Ulcerative Colitis Norbert Damico Needed Services MD Laura Montoya, DO Required [address] [place] [address], [place] [address] [place] [address] [place], Phone: [place] [address] Phone: Encounter Details Date Type Department Care Team Description 11/11/2017 Office Visit [facility] Lindsay Damico MD [address] [place], [place] [phone] Iron deficiency (Primary Dx); Physicians - Internal Alina Torres MD [address] [place] [address] Vitamin D deficiency; Medicine Ulcerative colitis with complication, unspecified location ([facility]); [address] [place] [facility] systemic steroid user; [address] [place] [address] Social History Tobacco Use Types [...] Taken Blood Pressure 127/75 11/11/2017 1:00 PM REFUSE DRIVER Pulse 67 11/11/2017 1:00 PM REFUSE DRIVER Temperature 36.8 C (98.2 F) 11/11/2017 1:00 PM REFUSE DRIVER Respiratory Rate 16 11/11/2017 1:00 PM REFUSE DRIVER Oxygen Saturation 100% 11/11/2017 1:00 PM REFUSE DRIVER Inhaled Oxygen Concentration - - Weight 78.2 kg (172 lb 6.4 oz) 11/11/2017 1:00 PM REFUSE DRIVER Height 175.3 cm (5' 9") 11/11/2017 1:00 PM REFUSE DRIVER Body Mass Index 25.46 11/11/2017 1:00 PM REFUSE DRIVER in this encounter Functional Status Functional [...] your care please contact AMISHA Lopez via TraceLink (preference) or @ [phone]. Follow up appointment in 1 month. in [...] 1999. He sees one of our transplant safety specialist at [facility] for primary sclerosing cholangitis. He also suffers [...] cholangitis on liver biopsy sometime between 2001 [id number]: He has been started on ursodiol at that time. [id number]: He was treated for coronary artery disease [...] artery disease) 02/18/2015 CAD (coronary artery disease), [place] coronary artery 02/18/2015 12/25/2014 - Stress Test: Abnormal MPI with evidence of infarct in the RCA territory. Preserved LV function and absence of stress induced myocardial cavity dilation. ([facility] 03/11/17- Cardiac catheterization, left main had [...] 02/18/2015 S/P CABG (coronary artery bypass graft) [facility] Type 2 diabetes mellitus (HCC) 02/18/2015 PSH: Past Surgical History: Procedure Laterality Date CORONARY ARTERY BYPASS GRAFT 08/20/2010 quad; with bypass angiography SURGERY 12/2010 right carotid endarterectomy CORONARY STENT PLACEMENT 01/06/2012 x1 PERCUTANEOUS CORONARY INTERVENTION N/A 03/20/2016 Percutaneous Coronary Intervention performed by Tino Durbin MD at [employer] OF COMMUNITY SERVICES PERCUTANEOUS CORONARY INTERVENTION N/A 03/11/2017 Possible Percutaneous Coronary Intervention performed by Isamar Avial MD at [employer] OF COMMUNITY SERVICES PERCUTANEOUS CORONARY INTERVENTION N/A 04/09/2017 Percutaneous Coronary Intervention to Saphenous Vein Graft, Right Coronary Artery performed by Isamar Avila MD at [employer] COMMUNITY SERVICES PERCUTANEOUS CORONARY INTERVENTION N/A 04/09/2017 Percutaneous Coronary Intervention performed by Isamar Avila MD at DIRECT[employer] OF COMMUNITY SERVICES PERCUTANEOUS CORONARY INTERVENTION N/A 05/13/2017 Possible Percutaneous Coronary Intervention performed by Isamar Avila MD at DIRECT[employer] OF COMMUNITY SERVICES PERCUTANEOUS CORONARY INTERVENTION N/A 09/29/2017 Possible Percutaneous Coronary Intervention performed by Isamar Avila MD at DIRECT[employer] OF COMMUNITY SERVICES CARDIAC CATHERIZATION HEART CATHETERIZATION 2016 [email or web address] (R) [...] heparin (porcine) 30,000 units/30 mL infusion (SYR) [facility]), 1, 500 Units/hr, Apheresis, TITRATE, Wesley [...] sign up for patient assistance program at [facility] to receive the medication. He will be prescribed with Uceris 9 g daily for 3 months. -Colon cancer screening in the setting of ulcerative pancolitis since 1996: He will be scheduled to have a colonoscopy with random 4-quadrant [facility]. -Primary sclerosing cholangitis: He is seeing one of our transplant safety specialist here at [facility]. -Anemia: Iron panel, folic acid, vitamin B12 [...] Interface, Radiant Results - 12/09/2017 12:51 PM REFUSE DRIVER DEXA BONE MINERAL DENSITY SCAN: CLINICAL HISTORY: [...] % Specimen Performing Laboratory Blood MAIN LAB [address] [place] [address] FOLATE, SERUM (11/11/2017 2:32 PM) Component Value Ref Range Serum Folate 11.3Comment: NOTE NEW REFERENCE RANGES >3.9 NG/ML Specimen Performing Laboratory Blood MAIN LAB [address] [place] [address] 25-OH VITAMIN D (D2 + D3) (11/11/2017 2:32 PM) Component Value Ref Range Vitamin D(25-OH)Total 20.7 (L) 30 - 80 NG/ML Specimen Performing Laboratory Blood MAIN LAB [address] [place] [address] VITAMIN B12 (11/11/2017 2:32 PM) Component Value Ref Range Vitamin B12 >1500 (H) 180 - 914 PG/ML Specimen Performing Laboratory Blood MAIN LAB [address] [place] [address], [place] [address] in this encounter Visit Diagnoses Diagnosis Iron deficiency - Primary Iron deficiency anemia, unspecified Vitamin D deficiency Unspecified vitamin D deficiency Ulcerative colitis with complication, unspecified location (HCC) 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
--- OUTSIDE RECORDS SUMMARY | 2018-01-31 01:38 | External Medical Summary | Encounter Summary ---
:1960 Author Organization [facility] Address [address] [place] [address] Phone Care Team Providers Name Role Phone Sefreino Portillo MD Unavailable Pippa Neal Unavailable Unavailable Seferino Portillo MD Unavailable Tia Cunha MD Unavailable Pratibha Blandon LPN Unavailable Unavailable Carrie Ferrer RN Unavailable Unavailable Didi Duarte RN Registered Nurse Unavailable Tiffani Gil RN Unavailable Unavailable Vladimir Munson MD Primary Care Provider Encounter Details Date Type Department Care Team Description 11/11/2017 Hospital Encounter [facility] LAB Kourtney-Aslinia, Iron deficiency [id number] [facility] Alina Ordonez MD [address] [place] [address] [phone] Social History Tobacco Use Types Packs/Day Years [...] deficiency, Ulcerative colitis with complication, unspecified location ([facility]) carvedilol (COREG) 6.25 Take 0.5 Tabs by 180 Tab 3 04/11/2017 mg tabletIndications: mouth twice daily Coronary artery disease with meals. Take involving choctaw coronary with food. artery of choctaw heart with angina pectoris ([facility]) chlorthalidone (HYGROTON) Take 25 mg by mouth 25 mg tablet daily. CHOLECALCIFEROL (VITAMIN Take 5,000 Units by D3) (VITAMIN D3 PO) mouth daily. clopiDOGrel (PLAVIX) 75 Take 1 Tab by mouth 90 Tab 3 04/11/2017 mg tabletIndications: daily. Coronary artery disease involving choct[place] coronary artery of choctaw heart with unstable angina pectoris ([facility]), Chronic liver disease, S/P CABG (coronary artery bypass graft), PAD (peripheral artery disease) ([facility]), Gastroesophageal reflux disease without esophagitis, Essential hypertension with goal blood pressure less than 130/85, Other hyperlipidemia, Accelerating angina ([facility]), Coronary artery disease involving choct[place] coronary artery of choctaw heart with angina pectoris ([facility]) ergocalciferol (VITAMIN Take 1 capsule by D-2) [...] mg tabletIndications: daily. Coronary artery disease involving choct[place] coronary artery of choctaw heart with angina pectoris (HCC) pantoprazole DR [...] Specimen Performing Laboratory Blood MAIN LAB [address] [place] [address] FOLATE, SERUM (11/11/2017 2:32 PM) Component Value Ref Range Serum Folate 11.3Comment: NOTE NEW REFERENCE RANGES >3.9 NG/ML Specimen Performing Laboratory Blood MAIN LAB [address] [place] [address] 25-OH VITAMIN D (D2 + D3) (11/11/2017 2:32 PM) Component Value Ref Range Vitamin D(25-OH)Total 20.7 (L) 30 - 80 NG/ML Specimen Performing Laboratory Blood [facility] MAIN [facility] [address] [place] [address] VITAMIN B12 (11/11/2017 2:32 PM) Component Value Ref Range Vitamin B12 >1500 (H) 180 - 914 PG/ML Specimen Performing Laboratory Blood [facility] MAIN [facility] [address] [place] [address] in this encounter Visit Diagnoses Diagnosis Iron deficiency Iron deficiency anemia, unspecified Vitamin D deficiency Unspecified vitamin D deficiency Ulcerative colitis with complication, unspecified location (HCC) Admitting Diagnoses Diagnosis Iron deficiency Vitamin D deficiency, unspecified Ulcerative colitis, unspecified with unspecified complications (HCC) Ulcerative colitis, unspecified with unspecified complications
[2018-01-31] MEDS: LIDOCAINE 1% INJ 10 MG, POTASSIUM CHLORIDE INJ 10 MEQ in NS 100 ML IV SCH ×2 (01:59→03:00)
[2018-01-31 17:21] VITALS: BMI 23.6
[2018-01-31] MEDS ORDERED: ALPRAZolam 0.5 MG TABLET PO PRN (22:02)
[2018-01-31] MEDS ORDERED: HYDROCODONE/APAP 7.5 MG/325 MG TABLET PO PRN (22:06)
[2018-01-31] MEDS: ALBUTEROL 2.5mg/3ml (0.083%) NEB AEROSOL PRN (22:21)
[2018-02-01] MEDS: LOPERAMIDE 2 MG CAPSULE PO SCH (08:54)
[2018-02-01] MEDS: ASPIRIN *EC* 81 MG TABLET PO SCH (08:54)
[2018-02-01] MEDS: PANTOPRAZOLE 40 MG TABLET PO SCH (08:55)
--- NOTE | 2018-02-01 14:39 | History and Physical ---
CHIEF COMPLAINT Low potassium. HISTORY OF PRESENT ILLNESS The patient is a 57-year-old male who was admitted to [facility] on 01/24/2018 and dismissed on 01/27/2018 after he was treated for acute congestive heart failure aggressively with a Bumex drip. During that hospitalization patient also had some hypokalemia due to diuretic effect. That was treated and normalized. He was sent home on 01/27/2018. On 01/30/2018 I did receive a phone call from the [facility] lab personnel about patient's potassium being 3.0. This was concerning in the sense that patient was taking 40 mg Lasix every other day, meaning 20 mg per day of Lasix, and yet patient was taking up to 60 mEq of potassium as well. So on that particular day we had him take a total of 80 mEq potassium by mouth and then we had him go to the lab four hours later and his potassium remained at 3.0. Therefore we admitted the patient to the IV infusion unit where he was given a total of 50 mEq IV potassium. Yet his potassium remained at 3.0. Therefore I decided to admit the patient to [facility] on an outpatient basis to see better how we can encourage potassium and also looking for reason why his hypokalemia is becoming recalcitrant. This is important in a patient with significant coronary artery disease. He has had multiple--at least 15-17 stents into his coronary arteries over the years and also has history of congestive heart failure and also endstage hepatic failure. He has history of ulcerative colitis. He does present with a little diarrhea, but he has not had diarrhea lately. He has taken Imodium and that seems to keep diarrhea under control. PAST MEDICAL HISTORY 1. Dyslipidemia. 2. Pulmonary embolism. 3. Ulcerative colitis. 4. Congestive heart failure. 5. Ischemic cardiomyopathy with ejection fraction of 25%. 6. Hypertension. 7. Depression. 8. Anxiety. 9. Hypothyroidism. 10. Chronic cholangitis. 11. GERD. 12. Endstage liver failure. 13. Peripheral artery disease requiring some stenting as well. 14. History of coronary artery disease with multiple stents. 15. Familial hyperlipidemia. 16. Significant statin intolerance. PAST SURGICAL HISTORY Multiple stents as noted above. FAMILY HISTORY Dyslipidemia. ALLERGIES Cephalexin (causes significant myalgia), rifampin, Sulfa, Peridex, Welchol, dextrose, pravastatin, rifaximin, garlic, and peanuts. SOCIAL HISTORY The patient is . He quit smoking several years ago. CURRENT MEDICATIONS 1. Aleve 220 mg p.o. q.12h. 2. Aspirin 81 mg one tablet daily. 3. Chlorthalidone 25 mg one tablet daily. He had stopped that for a day or two prior to this admission. 4. Vitamin D3 5000 units one tablet daily. 5. Claritin Ligui-Gel 10 mg one tablet daily. 6. Coreg 3.125 mg p.o. b.i.d. Patient held this on his own because blood pressure was getting low. 7. Cozaar 100 mg one tablet at bedtime. 8. Evolocumab 420 mg subcutaneously every 30 days. 9. Iron gluconate one tablet daily with breakfast. 10. Advair Diskus one puff b.i.d. 11. Folic acid one tablet daily. 12. Bozrah 7.5/325 mg one tablet every 6 hours p.r.n. 13. Isosorbide mononitrate ER 15 mg p.o. daily p.r.n. 14. Lasix 40 mg one tablet every other day. That has been held on the day of admission. 15. Lexapro 20 mg one tablet daily. 16. Lialda 1.2 g p.o. b.i.d. 17. Loperamide 4 mg one tablet daily. 18. Multivitamin one tablet daily. 19. Zofran 4 mg one tablet p.o. q.6h. p.r.n. 20. Plavix 75 mg one tablet daily. 21. Potassium chloride - patient was taking 50 mEq daily. 22. Protonix 40 mg one tablet daily. 23. Xanax 0.5 mg one tablet p.o. b.i.d. p.r.n. anxiety. REVIEW OF SYSTEMS He does have occasional chest pain. Denies any palpitation or orthopnea. Denies any hematochezia. No melena. Denies any TIA or CVA symptoms. His leg swelling has improved significantly as a matter of fact. He does have some itching which is chronic for him. LAB Potassium is low at 3.0 - not responding to massive oral potassium replacement. CBC: Hemoglobin 9.5 - stable. Platelet count 126,000 is stable as well. White blood count is 5.0--stable. ASSESSMENT 1. Recalcitrant hypokalemia. Etiology remains unclear. Patient's magnesium is normal at 2.3. 2. Acute congestive heart failure recently treated with Bumex infusion then followed by Lasix. 3. History of coronary artery disease. 4. Acute chest pain probably related to his coronary artery disease. 5. Chronic hepatic failure. 6. Jaundice due to the above. 7. Hypothyroidism which is chronic. 8. Ulcerative colitis, currently on treatment. PLAN Will continue to hold Lasix and chlorthalidone Will replace potassium. Will need stabilization for a least a couple of days for his own safety. His potassium is just too unsteady right now so that he will need to be in-house to have that corrected because of his significant comorbidities. Will go ahead and resume some of his home medications for now. We have ordered for some other lab including random for potassium, urine osmolality as well. [facility]
[2018-02-01] MEDS: ALBUTEROL 2.5mg/3ml (0.083%) NEB AEROSOL PRN (17:00)
[2018-02-01] MEDS: FOLIC ACID 1 MG TABLET PO SCH (17:43)
[2018-02-01] MEDS: CLOPIDOGREL 75 MG TABLET PO SCH (17:43)
--- NOTE | 2018-02-01 20:59 | Progress Note ---
DATE 02/01/2018 SUBJECTIVE The patient actually feels better today. His shortness of breath is almost gone after he was started on his inhaler. Denies any leg cramps. No chest pain. PHYSICAL EXAM GENERAL: The patient looks comfortable, in no acute distress. HEENT: Unremarkable. NECK: Supple. CHEST: Lungs are clear to auscultation bilaterally. CARDIOVASCULAR: Regular rate and rhythm. ABDOMEN: Soft, nontender. EXTREMITIES: No cyanosis, clubbing or edema. NEUROLOGIC: Grossly intact. SKIN: Patient has jaundice which is chronic. LABORATORY (today) Potassium this morning was 3.3. It got up to 3.8 about 8 o'clock last night, 3.3 this morning. Blood was drawn about 30 minutes ago for potassium - result pending at time of dictation. We need to check his magnesium level - has not been checked in the last couple of days. Will need to check TSH, free T4 as well. ASSESSMENT 1. HYPOKALEMIA 2. CHF 3. COPD 4. CAD 5. HEPATIC FAILURE CHRONIC PLAN CONTINUE HOME MEDS AND KCL REPLACEMENT. CONSULT TO DR. VENICE GUERRA. GIA
[2018-02-02] MEDS: PANTOPRAZOLE 40 MG TABLET PO SCH (06:38)
[2018-02-02] MEDS: ASPIRIN *EC* 81 MG TABLET PO SCH (08:42)
[2018-02-02] MEDS: CLOPIDOGREL 75 MG TABLET PO SCH (08:42)
[2018-02-02] MEDS: FOLIC ACID 1 MG TABLET PO SCH (08:42)
[2018-02-02] MEDS: LOPERAMIDE 2 MG CAPSULE PO SCH (08:48)
[2018-02-02] MEDS: ALBUTEROL 2.5mg/3ml (0.083%) NEB AEROSOL PRN (12:35)
--- NOTE | 2018-02-02 19:22 | Progress Note ---
DATE 02/02/2018 NIHARIKA Mcknight actually was sitting in a chair in his room when I saw him this morning during rounds. He doesn't voice any complaints. He thinks that his breathing is better. PHYSICAL EXAM VITAL SIGNS: Blood pressure 126/77, pulse 81, respirations 16, oxygen saturation 97% on room air. GENERAL: The patient looks comfortable and is cheerful. NECK: Supple. CHEST: Lungs are clear. CARDIOVASCULAR: Regular rate and rhythm. No murmur. ABDOMEN: Soft, nontender. EXTREMITIES: No cyanosis, clubbing or edema. NEUROLOGIC: Grossly intact. LABORATORY (this morning) Potassium 3.6. Magnesium last night was 2.1. TSH 5.56. ASSESSMENT 1. Hypokalemia. 2. CHF. 3. Hypertension. 4. Peripheral vascular disease. 5. Chronic hepatic failure. 6. Hypothyroidism. PLAN 1. Adjust patient's Synthroid dosage. 2. Consultation to Dr. Sam Holland has been initiated. Patient has taken a lot of potassium and yet is barely normalized. MTDD
[2018-02-03] MEDS: PANTOPRAZOLE 40 MG TABLET PO SCH (06:25)
[2018-02-03 07:52] VITALS: BP 116/71; RESP 20; TEMP 96.8; O2SAT 96
[2018-02-03] MEDS: CLOPIDOGREL 75 MG TABLET PO SCH (08:45)
[2018-02-03] MEDS: ASPIRIN *EC* 81 MG TABLET PO SCH (08:45)
[2018-02-03] MEDS: FOLIC ACID 1 MG TABLET PO SCH (08:45)
[2018-02-03 09:51] VITALS: PULSE 80
== END 2018-02-03 13:35 | disposition home or self-care (01) | DRG 641 ==
LOC: MED
PROVIDERS: ADMIT Family Medicine; ATTEND Family Medicine